=== PATIENT | male | born 1975 | race African-American/Black ===

== ENCOUNTER 2025-01-06 14:59 | Outpatient (AMB) | payer BC, SELFPAY ==
--- NOTE | 2025-01-06 15:06 | HO.NEPHOV_ITS ---
Vital Signs 01/06/25 15:10 Height 5 ft 10 in Weight 475 lb BMI 68.1 BP 114/70 Blood Pressure Location Lt radial Position Sitting Pulse 117 H Pulse Source Pulse Oximeter Pulse Oximetry (%) 94 Oxygen Delivery Method Room Air Intake Visit Reasons: ENP: Dysuria Accounting Professor Required: No Accompanied by: Friend Allergies codeine Allergy (Verified 01/06/25 15:10) Itching guaifenesin Allergy (Verified 01/06/25 15:10) Itching HPI Comments Details: I had the delight of seeing Mr. Yoon who is 49 years of age with a BMI of 68, in consultation for proteinuria. He is not a diabetic and does not have any hypertension. He had leg wound which is healing. He recently had been noticing cloudy urine with edema and weight gain. He denies epistaxis, recurrent sore throat, photosensitivity, new skin rashes, joint swellings, hearing deficits, coronary artery disease, congestive heart failure, CVA. He takes nonsteroidal anti-inflammatories as needed basis. He does not have any new bone or back pain. Recently he presented to PCP with dark and cloudy urine, he was thought to have microscopic hematuria and was diagnosed with proteinuria. His recent serum albumin has been 2.3. Nephrology has been consulted to assist in his clinical care during his current hospital stay. [facility] Medical History (Updated 01/06/25 @ 15:49 by Gerard Morris MD) [place] disease Adult lactase deficiency Bilateral carpal tunnel syndrome Depression with anxiety Allergic rhinitis Decreased testosterone level Proteinuria Eczema Vitamin D deficiency Complication of stomach banding GERD (gastroesophageal reflux disease) Seasonal allergic rhinitis due to pollen Seasonal allergic conjunctivitis Multifocal pneumonia Chronic cough Gynecomastia Morbid obesity with BMI of 60.0-69.9, adult Vitamin B12 deficiency Essential (primary) hypertension Hyperlipidemia Surgical History (Updated 01/06/25 @ 15:08 by Vidya Cody MA) History of endoscopy Hx of laparoscopic gastric banding Family History Maternal Aunt Diabetes Social History (Updated 01/06/25 @ 15:07 by Vidya Cody MA) Alcohol intake: former Patient Tobacco Use Status: Never used Tobacco Review of Systems Const All systems reviewed & are unremarkable except as noted in HPI and below Physical Exam Vital Signs: Last Vital Signs Pulse 117 H 01/06/25 15:10 BP 114/70 01/06/25 15:10 Pulse Ox 94 01/06/25 15:10 Oxygen Delivery Method Room Air 01/06/25 15:10 BMI result Body Mass Index 68.1 Const General: comfortable and no acute distress Orientation/consciousness: patient oriented x3 HEENT Head: Yes normocephalic Mouth: Normal oral and palatal mucosa present Eyes EOM: EOMs intact bilaterally Neck Neck: Yes supple Resp Auscultation: clear to auscultation bilaterally Cardio Jugular venous distension: no JVD Rate: regular rate GI Palpation (GI): Soft to palpation Auscultation: normal bowel sounds General: Yes no CVA tenderness Back/Spine/Pelvis Back: no CVA tenderness Skin General skin exam: no rashes or lesions noted Neuro General: patient oriented x3 and moves all extremities Extrem General: Yes edema Results Reviewed Nephrology Results: Sodium Pending 01/06/25 Potassium Pending 01/06/25 Chloride Pending 01/06/25 Carbon Dioxide Pending 01/06/25 BUN Pending 01/06/25 Creatinine Pending 01/06/25 Calcium Pending 01/06/25 Urine Creatinine Pending 01/06/25 Protein/Creatinin Ratio Pending 01/06/25 Assessment & Plan Assessment & Plan (1) Proteinuria: Code(s): R80.9 - Proteinuria, unspecified Category: Medical Qualifiers: Proteinuria type: other Qualified Code(s): R80.8 - Other proteinuria (2) Hypoalbuminemia: Code(s): E88.09 - Other disorders of plasma-protein metabolism, not elsewhere classified Category: Medical Plan Mr. Yoon has microscopic hematuria and significant proteinuria. He recently had been having weight gain and edema. His serum creatinine is normal. He is hypoalbuminemic. Differential diagnosis are quite broad including postinfectious GN, IgA nephropathy, FSGS. He is hypervolemic. I started him on Lasix 40 mg daily and ordered blood work, urine studies including 24 hour urine for protein. He may need a renal biopsy. His renal functions are normal. His blood pressure is at goal. I encouraged him to minimize or avoid nonsteroidal anti-inflammatories and cut back sodium in the diet. He should lose more weight. Further management is pending evolving data. Answered all questions. Orders: Orders Protein, 24 Hr Urine Group Today R80.9 - Proteinuria, unspecified Electrolytes Today R80.9 - Proteinuria, unspecified Creatinine Today R80.9 - Proteinuria, unspecified Hepatitis B Core Antibody Today R80.9 - Proteinuria, unspecified Hepatitis B Surface Antigen Today R80.9 - Proteinuria, unspecified Anti DNA DS Antibody Today R80.9 - Proteinuria, unspecified Myeloperoxidase Antibody Today R80.9 - Proteinuria, unspecified Anti Glomerular Basement Memb Today R80.9 - Proteinuria, unspecified Complement C3 Today R80.9 - Proteinuria, unspecified Immunofixation Pnl, Serum Today R80.9 - Proteinuria, unspecified Phospholipase A2 Receptor Pnl Today R80.9 - Proteinuria, unspecified Alanine Aminotransferase Today E88.09 - Other disorders of plasma-protein metabolism, not elsewhere classified, R80.9 - Proteinuria, unspecified Calcium Today R80.9 - Proteinuria, unspecified Blood Urea Nitrogen Today R80.9 - Proteinuria, unspecified Proteinase 3 PR3 Antibodies Today R80.9 - Proteinuria, unspecified Complement C4 Today R80.9 - Proteinuria, unspecified Aspartate Amino Transferase Today E88.09 - Other disorders of plasma-protein metabolism, not elsewhere classified, R80.9 - Proteinuria, unspecified Albumin Level Today E88.09 - Other disorders of plasma-protein metabolism, not elsewhere classified, R80.9 - Proteinuria, unspecified Immunofixation, Random Urine Today E88.09 - Other disorders of plasma-protein metabolism, not elsewhere classified, R80.9 - Proteinuria, unspecified Protein Creatinine Ratio, Ur Today E88.09 - Other disorders of plasma-protein metabolism, not elsewhere classified, R80.9 - Proteinuria, unspecified Medications: New furosemide (Lasix) 40 mg PO DAILY 14 tabs 0RF Coding Level of Care Code New Pt Level 4 (49395) Diagnoses Other proteinuria R80.8 Proteinuria type: other Hypoalbuminemia E88.09
[2025-01-06 15:10] VITALS: BP 114/70; PULSE 117; O2SAT 94; BMI 68.1
--- OUTSIDE RECORDS SUMMARY | 2025-01-06 18:15 | XMS_ITS | Encounter Summary ---
Author Organization [facility] Address [address] [place] [address] Care Team Providers Care Clean Rice Grader And Reel Tender Name Role Phone Carlos Jerez MD Primary Care Provider [phone] Reason for Visit * Reason Onset Date Comments Request For Order(s) 12/31/2024 [facility] Order # [id number] Encounter Details Date Type Department Care Team (Late st Contact Info) Description 12/31/2024 Telephone Internal Medicine - [place] [address] [place] [address] Cathy Coyne MA Request For Order(s) ([facility] Order # [id number]/) Social History Tobacco Use Types Packs/Day Years Used Date Smoking Tobacco: Never Smokeless Tobacco: Never Alcohol Use Standard Drinks/Week Comments Yes 0 (1 standard drink = 0.6 oz pur e alcohol) occasional socially Sex and Gender Information Value Date Recorded Sex Assigned at Not on file Legal Sex Male 8:39 PM EST Gender Identity Not on file Sexual Orientation Not on file documented as of this encounter Progress Notes * Cathy Coyne MA - 01/02/2025 7:04 AM EDT Scanned into chart and faxed to [facility] [phone] * Cathy Coyne MA - 12/31/2024 11:10 AM EDT [facility] Order # [id number] Please sign & documented in this encounter Plan of Treatment Upcoming Encounters Date Type Department Care Team (Late st Contact Info) Description 01/08/2025 9:30 AM EDT Clinical Support [facility] [address] [place] [phone] 01/22/2025 9:30 AM EDT Clinical Support [facility] [address] [place] [phone] 03/10/2025 11:30 AM EDT Office Visit [facility] Hematology Oncology [address] [place] [phone] Reese Christensen MD [address] [place] [address] 06/02/2025 8:15 AM EDT Office Visit Pulmonolgy - [place] [address] [phone] Ronald Schilling MD [address] [address] documented as of this encounter Goals Goal Patient Goal Type Associated Problems Recent Progress Patient-Stated? Author Decrease Wound Volume by X% by date (in notes) Care Plan Impaired Tissue On track( 025 11:14 AM EDT) No Camilla Perales, JERICA Patient and Caregiver Understand Wound Care Education Care Plan Impaired Tissue On track( 025 11:14 AM EDT) No Camilla Perales, jammer hooker volume breakdown reduced by X% by week 4 Care Plan Impaired Tissue No Camilla Perales, jammer hooker volume breakdown reduced by X% by week 8 Care Plan Impaired Tissue No Camilla Perales, jammer hooker volume breakdown reduced by X% by week 12 Care Plan Impaired Tissue No Camilla Perales, RN Quit using tobacco (cigarettes, smokeless, etc) Care Plan Education needed on impact of smoking on wound No Camilla Perales RN Reduce tobacco use (cigarettes, smokeless, etc) Care Plan Education needed on impact of smoking on wound No Camilla Perales RN Decrease Wound Volume by X% by date (in notes) Care Plan Education needed on impact of smoking on wound No Camilla Perales RN Patient and Caregiver Understand Wound Care Education Care Plan Education needed related to ulceration/compr omised skin integrity. No Camilla Perales RN documented as of this encounter Visit Diagnoses Not on filedocumented in this encounter Additional Health Concerns Active Problems Noted Date Diagnosed Date Impaired Tissue 12/19/2024 Education needed on impact of smoking on wound 0 12/19/2024 Education needed related to ulceration/compromised skin integrity. 12/19/2024 documented as of this encounter Care Teams Clean Rice Grader And Reel Tender Relationship Specialty Start Date End Date Carlos Jreez MD [address] [place] [address] PCP - General Internal Medicine 09/12/18 documented as of this encounter
--- OUTSIDE RECORDS SUMMARY | 2025-01-06 18:15 | XMS_ITS | Encounter Summary ---
Author Organization [facility] Address [address] [place] [address] Care Team Providers Care Bottle Selector Name Role Phone Carlos Jerez MD Primary Care Provider [phone] Reason for Visit * Reason Onset Date Comments Request For Order(s) 12/31/2024 [facility] Order # [id number] Encounter Details Date Type Department Care Team (Late st Contact Info) Description 12/31/2024 Telephone Internal Medicine - [place] [address] [facility] [address] [address] [address] [place] [address] Cathy Coyne MA Request For Order(s) ([facility] Order # [id number]/) Social History Tobacco Use Types Packs/Day Years [...] Notes * Cathy Coyne MA - 01/02/2025 7:15 AM EDT Scanned into chart and faxed to [facility] [phone] * Cathy Coyne MA - 12/31/2024 11:21 AM EDT [facility] Order # [id number] Please sign & documented in this encounter Plan of Treatment Upcoming Encounters Date Type Department Care Team (Late st Contact Info) Description 01/08/2025 9:30 AM EDT Clinical Support [facility] [address] [place] [phone] 01/22/2025 9:30 AM EDT Clinical Support [facility] [address] [place] [phone] 03/10/2025 11:30 AM EDT Office Visit [facility] Hematology Oncology [address] [place] [phone] Reese Christensen MD [address] [place] [phone] 06/02/2025 8:15 AM EDT Office Visit Pulmonolgy - [place] [address] [phone] Ronald Schilling MD [address] [address] documented as of this encounter Goals Goal Patient Goal Type Associated Problems Recent Progress Patient-Stated? Author Decrease Wound Volume by X% by date (in notes) Care Plan Impaired Tissue On track( 025 11:14 AM EDT) No Camilla Perales, JERICA Patient and Caregiver Understand Wound Care Education Care Plan Impaired Tissue On track( 025 11:14 AM EDT) No Camilla Perales, crystal inspector volume breakdown reduced by X% by week 4 Care Plan Impaired Tissue No Camilla Perales, crystal inspector volume breakdown reduced by X% by week 8 Care Plan Impaired Tissue No Camilla Perales, crystal inspector volume breakdown reduced by X% by week [...] documented as of this encounter Care Teams Bottle Selector Relationship Specialty Start Date End Date Carlos Jerez MD [address] [place] [address] PCP - General Internal Medicine 09/12/18 documented as of this encounter
--- OUTSIDE RECORDS SUMMARY | 2025-01-06 18:15 | XMS_ITS ---
Care Plan Created on: January 06, 2025 Cassie Yoon : 1975 Sex: Male Author Organization [address] [facility] Address [address] [place] [address] Phone Care Team Providers Care Home Health Care Provider Name Role Phone Carlos Jerez MD Primary Care Provider Active Problems Problem Noted Date Diagnosed Date Hyperlipidemia 07/09/2021 Primary hypertension 07/09/2021 Vitamin B12 deficiency 07/09/2021 Morbid obesity with BMI of 6 0.0-69.9, adult ([facility] V24, [facility] V28) 09/02/2020 Gynecomastia 08/23/2020 Chronic cough 01/26/2020 Multifocal pneumonia 01/26/2020 Seasonal allergic conjunctivitis 01/26/2020 Seasonal allergic rhinitis due to pollen 020 GERD (gastroesophageal reflux disease) 8 Complication of stomach banding 05/01/2018 Vitamin D deficiency 05/01/2018 Eczema 02/27/2017 Proteinuria 02/27/2017 Decreased testosterone level 11/30/2016 Allergic rhinitis 04/17/2016 Depression with anxiety 04/17/2016 Bilateral carpal tunnel syndrome 04/13/2015 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 [place] disease 09/02/2013 Additional Health Concerns Active Problems Noted Date Diagnosed Date Impaired Tissue 12/19/2024 Education needed on impact of smoking on wound 0 12/19/2024 Education needed related to ulceration/compromised skin integrity. 12/19/2024 Goals Goal Patient Goal Type Associated Problems Recent Progress Patient-Stated? Author Decrease Wound Volume by X% by date (in notes) Care Plan Impaired Tissue On track( 025 11:14 AM EDT) Camilla Sullivan RN Patient and Caregiver Understand Wound Care Education Care Plan Impaired Tissue On track( 025 11:14 AM EDT) Camilla Sullivan RN Wound volume breakdown reduced by X% by week 4 Care Plan Impaired Tissue No Camilla Perales RN Wound volume breakdown reduced by X% by week 8 Care Plan Impaired Tissue No Camilla Perales RN Wound volume breakdown reduced by X% by week 12 Care Plan Impaired Tissue No Camilla Perales RN Quit using tobacco (cigarettes, smokeless, etc) [...] omised skin integrity. No Camilla Perales RN Interventions Care Plan Interventions Intervention Entry Date Outcome Provide caregiver with wound care procedure information 12/19/2024 Educate caregiver on proper wound care procedures 12/19/2024 Give provider list of wound care supplies 12/19/2024 Refill wound care supplies 12/19/2024 Send Wound Care Supplies 12/19/2024 Give provider list of wound care supplies 12/19/2024 Refill wound care supplies 12/19/2024 Send Wound Care Supplies 12/19/2024 Provide caregiver with wound care procedure information 12/19/2024 Educate caregiver on proper wound care procedures 12/19/2024 Document patient eligibility for HBO 12/19/2024 Assess patient for HBO treatment 12/19/2024 Record wound depth 12/19/2024 Record total wound area 12/19/2024 Measure wound progress 12/19/2024 Create an action plan identifying patient strengths and supports 12/19/2024 Establish quit date with patient 12/19/2024 Discuss prior cessation attempts 12/19/2024 Discuss preferred method of cessation and plan 12/19/2024 Discuss barriers to smoking cessation 12/19/2024 Discuss smoking status with patient 12/19/2024 Create an action plan identifying patient strengths and supports 12/19/2024 Establish quit date with patient 12/19/2024 Discuss prior cessation attempts 12/19/2024 Discuss preferred method of cessation and plan 12/19/2024 Discuss barriers to smoking cessation 12/19/2024 Discuss smoking status with patient 12/19/2024 Provide caregiver with wound care procedure information 12/19/2024 Educate caregiver on proper wound care procedures 12/19/2024 Document patient eligibility for HBO 12/19/2024 Assess patient for HBO treatment 12/19/2024 Record wound depth 12/19/2024 Record total wound area 12/19/2024 Measure wound progress 12/19/2024 Provide caregiver with wound care procedure information 12/19/2024 Educate caregiver on proper wound care procedures 12/19/2024 Document patient eligibility for HBO 12/19/2024 Assess patient for HBO treatment 12/19/2024 Record wound depth 12/19/2024 Record total wound area 12/19/2024 Measure wound progress 12/19/2024 Provide caregiver with wound care procedure information 12/19/2024 Educate caregiver on proper wound care procedures 12/19/2024 Document patient eligibility for HBO 12/19/2024 Assess patient for HBO treatment 12/19/2024 Record wound depth 12/19/2024 Record total wound area 12/19/2024 Measure wound progress 12/19/2024 Provide caregiver with wound care procedure information 12/19/2024 Educate caregiver on proper wound care procedures 12/19/2024 Give provider list of wound care supplies 12/19/2024 Refill wound care supplies 12/19/2024 Send Wound Care Supplies 12/19/2024 Give provider list of wound care supplies 12/19/2024 Refill wound care supplies 12/19/2024 Send Wound Care Supplies 12/19/2024 Provide caregiver with wound care procedure information 12/19/2024 Educate caregiver on proper wound care procedures 12/19/2024 Document patient eligibility for HBO 12/19/2024 Assess patient for HBO treatment 12/19/2024 Record wound depth 12/19/2024 Record total wound area 12/19/2024 Measure wound progress 12/19/2024 Related Goals and Interventions Goal Associated Intervent ions Decrease Wound Volume by X% by date (in notes) Give provider list of wound care supplie s; Refill wound care supplies; Send Wound Care Supplies; Provide caregiver with wound care procedure information; Educate caregiver on proper wound care procedures; Document patient eligibility for HBO; Assess patient for HBO treatment; Record wound depth; Record total wound area; Measure wound progress Patient and Caregiver Unders tand Wound Care Education Provide caregiver with wound care proced ure information; Educate caregiver on proper wound care procedures; Give provider list of wound care supplies; Refill wound care supplies; Send Wound Care Supplies Wound volume breakdown reduc ed by X% by week 4 Provide caregiver with wound care proced ure information; Educate caregiver on proper wound care procedures; Document patient eligibility for HBO; Assess patient for HBO treatment; Record wound depth; Record total wound area; Measure wound progress Wound volume breakdown reduc ed by X% by week 8 Provide caregiver with wound care proced ure information; Educate caregiver on proper wound care procedures; Document patient eligibility for HBO; Assess patient for HBO treatment; Record wound depth; Record total wound area; Measure wound progress Wound volume breakdown reduc ed by X% by week 12 Provide caregiver with wound care proced ure information; Educate caregiver on proper wound care procedures; Document patient eligibility for HBO; Assess patient for HBO treatment; Record wound depth; Record total wound area; Measure wound progress Quit using tobacco (cigarett es, smokeless, etc) Create an action plan identifying patien t strengths and supports; Establish quit date with patient; Discuss prior cessation attempts; Discuss preferred method of cessation and plan; Discuss barriers to smoking cessation; Discuss smoking status with patient Reduce tobacco use (cigarett es, smokeless, etc) Create an action plan identifying patien t strengths and supports; Establish quit date with patient; Discuss prior cessation attempts; Discuss preferred method of cessation and plan; Discuss barriers to smoking cessation; Discuss smoking status with patient Decrease Wound Volume by X% by date (in notes) Give provider list of wound care supplie s; Refill wound care supplies; Send Wound Care Supplies; Provide caregiver with wound care procedure information; Educate caregiver on proper wound care procedures; Document patient eligibility for HBO; Assess patient for HBO treatment; Record wound depth; Record total wound area; Measure wound progress Patient and Caregiver Unders tand Wound Care Education Provide caregiver with wound care proced ure information; Educate caregiver on proper wound care procedures; Give provider list of wound care supplies; Refill wound care supplies; Send Wound Care Supplies
--- OUTSIDE RECORDS SUMMARY | 2025-01-06 18:15 | XMS_ITS | Encounter Summary ---
Author Organization [employer] Address [address] [place] [address] Care Team Providers Care Software Developer Name Role Phone Carlos Jerez MD Primary Care Provider [phone] Reason for Visit * Reason Comments Wound Care Encounter Details Date Type Department Care Team (Latest Contact Info) Description 01/01/2025 10:30 AM EDT Office Visit [facility] [address] [place] [id number] Ever Torrez PA [address] [place] [address] Venous insufficiency of left lower extremity (Primary Dx); Non-pressure chronic ulcer of left lower leg with fat layer exposed (CMS/HCC V24, CMS/HCC V28); Non-pressure chronic ulcer of left thigh with fat layer exposed (CMS/HCC V24, CMS/HCC V28); Pressure injury of left buttock, stage 3 (CMS/HCC V24, CMS/HCC V28); Pressure injury of right buttock, stage 3 (CMS/HCC V24, CMS/HCC V28) Social History Tobacco Use Types Packs/Day Years [...] on file documented as of this encounter Last Filed Vital Signs Vital Sign Reading Time Taken Comments Blood Pressure 143/94 01/01/2025 11:20 AM EDT Pulse 96 01/01/2025 11:20 AM EDT Temperature 36.5 ??C (97.7 ??F) 01/01/2025 11:20 AM E DT Respiratory Rate 20 01/01/2025 11:20 AM EDT Oxygen Saturation 100% 01/01/2025 11:20 AM EDT Inhaled Oxygen Concentration - - Weight - - Height - - Body Mass Index - - documented in this encounter Progress Notes * Camilla Perales RN - 01/01/2025 10:30 AM EDT PROVIDER ORDERS Go to ER if you are presenting with fever, chills, increased redness, pain, swelling, warmth aroundwound area and/or foul smelling odor. If you have any questions or concerns, please contact the [facility] at . It was noted today during your visit that your blood pressure is elevated. Close follow-up with PCPis recommended for possible evaluation of starting and or changing blood pressure medication. VisitVitals BP (!) 148/99 Comment: pt asymptomatic Pulse 108 Temp 36.5 ??C (97.7 ??F) (Temporal) Resp 20 SpO2 100% Smoking Status Never Follow up(s)/ Referrals: Lymphedema Clinic: please call to follow up on your referral Vascular: [facility] 01/14/25 8 am Long-Term: Home care: [facility] Additional Orders: Increase protein in your diet to help promote wound healing Lidocaine Orders: Apply Lidocaine 4% Topical Solution prior to debridements at Wound Care appointments Edema Control: (If your compression wrap(s) feel to tight, please elevate your leg(s) about heart level. If your wrap(s) are becoming painful and/or you loose sensation of toes/ are having toe discoloration (a change from your baseline), please remove / unwrap compression and notify [facility] at . ) Coban 2 wrap to left lower extremity, Elevate legs above heart level as much as possible, Avoid standing for extended periods of time. Wear your own compression on your right leg Offloading: Gel wheelchair cushion prescription being sent to [facility] Negative Pressure Wound Therapy: (If wound vac is off/non functioning for more than 2 hours, please remove vac dressing, apply a wetto dry dressing and notify your home care agency) N/A Cellular/Tissue Based Products: N/A Bathing / Showering / Hygiene: May shower with protection but DO NOT get wound dressing(s) wet. Protect dressing(s) with water repellant cover ( for example- large plastic bag or cast bag) and then may take shower. Non-wound Condition/ Other Skin Care: Moisturize skin daily, avoiding wound area, Apply Ammonium Lactate 12% (Lac- hydrin) to skin as directed Wound Location(s): Wound #1 (Left anterior lower leg): Cleanser: Cleanse with Normal Saline, Cleanse with Vashe (if you can get Vashe, you can clean with the vashe) Periwound: Apply Zinc Oxide to howard wound Topical: N/A Primary dressing: Hydrofiber with silver (Aquacel AG)- cut to fit to wound bed Secondary dressinx4 woven gauze (non-sterile), Exudry Secure with: Kerlix wrap Compression Therapy: Coban 2 wrap to left lower extremity Dressing Change Frequency: Three times each week Wound #2 (Left medial upper leg): Cleanser: Cleanse with Normal Saline, Cleanse with Vashe (if you can get Vashe, you can clean with the vashe) Periwound: Apply Zinc Oxide to howard wound Topical: N/A Primary dressing: Hydrofiber with silver (Aquacel AG)- cut to fit to wound bed Secondary dressinx4 woven gauze (non-sterile), Exudry Secure with: Kerlix wrap- if needed, we secured with just an bladimir at the wound clinic Compression Therapy: 4 Bladimir Wrap Dressing Change Frequency: Three times each week Wound #3 (Left buttocks): Cleanser: Cleanse with Normal Saline Periwound: Apply Zinc Oxide to howard wound Topical: N/A Primary dressing: Hydrofiber with silver (Aquacel AG)- cut to fit to wound bed Secondary dressinx4 woven gauze (non-sterile) Secure with: 4 hypafix tape Compression Therapy: N/A Dressing Change Frequency: Three times each week Wound #4 (Right Buttocks): Cleanser: Cleanse with Normal Saline Periwound: Apply Zinc Oxide to howard wound Topical: N/A Primary dressing: Hydrofiber with silver (Aquacel AG)- cut to fit to wound bed Secondary dressinx4 woven gauze (non-sterile) Secure with: 4 hypafix tape Compression Therapy: N/A Dressing Change Frequency: Three times each week * HUSSEIN Dubois - 01/01/2025 10:30 AM EDTAssociated Order(s): Wound Care Procedure Other (comment) (Lymphedema ) Left;Anterior;Lower Leg; Debridement Other (comment) (Lymphedema ) Left;Anterior;Lower Leg; Debridement Other (comment) (Lymphedema ) Left;Upper;Medial Leg; Wound Care Procedure Pressure Injury Right Buttocks; Wound Care Procedure Pressure Injury Left Buttocks Post-Procedure Diagnose(s): Non-pressure chronic ulcer of left lower leg with fat layer exposed (CMS/HCC V24, CMS/HCC V28); Venous insufficiency of left lower extremity; 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 [facility] at [address] [address] Office Visit Visit Date: 01/01/2025 Patient Name: Cassie Yoon Date of : 1975 PCP: Carlos Jerez MD HPI: 41-year-old male with history of hyperlipidemia, hypertension, morbid obesity, eczema, proteinuria, lymphedema presents for reevaluation of left lower leg ulcers. He has VNA and since last week he has tolerated Coban 2 for compression with alginate on the wounds. He reports that he has to wounds over not evaluated last visit on his buttocks. These occurred while he was hospitalized recently.Otherwise he reports wounds seem to be improving and he is feeling well. 01/01/2025 Cassie Yoon is a 49 y.o. male who presents to the to the wound care center for follow up lower leg wounds bilateral buttocks wounds. Patient using topical silver alginate at this time with Coban compression. Patient has stage III pressure ulcers to the buttocks. Denies fever chills. Assessment and Plan: Venous insufficiency of left lower extremity (Primary) - Wound Care Procedure Other (comment) (Lymphedema ) Left;Anterior;Lower Leg - Debridement Other (comment) (Lymphedema ) Left;Anterior;Lower Leg - Debridement Other (comment) (Lymphedema ) Left;Upper;Medial Leg Non-pressure chronic ulcer of left lower leg with fat layer exposed (CMS/HCC V24, CMS/HCC V28) - Wound Care Procedure Other (comment) (Lymphedema ) Left;Anterior;Lower Leg - Debridement Other (comment) (Lymphedema ) Left;Anterior;Lower Leg Non-pressure chronic ulcer of left thigh with fat layer exposed (CMS/HCC V24, CMS/HCC V28) - Debridement Other (comment) (Lymphedema ) Left;Upper;Medial Leg Pressure injury of left buttock, stage 3 (CMS/HCC V24, CMS/HCC V28) - Wound Care Procedure Pressure Injury Right Buttocks Pressure injury of right buttock, stage 3 (CMS/HCC V24, CMS/HCC V28) - Wound Care Procedure Pressure Injury Left Buttocks Patient to follow-up in 1 week. Will continue with Coban compression. Silver alginate to the left lower leg wounds and pressure ulcers to the buttocks. Patient's blood pressure noted to be elevated advised to follow-up with PCP. No obvious signs of wound infection at this time. Left leg wounds aggressively debrided with a fair amount of bioburden noted. Pressure ulcers of the buttocks had hypergranulation tissue which were debrided/chemical cautery with silver nitrate. All questions were answered to his satisfaction. He was counseled regarding my impressions, instructions for management, and the importance of compliance with treatment. Follow up in about 1 week (around 01/08/2025), or Dr. Jasso, for Coban 2, multiple wounds. >>>>>>>>>>>>>>>>>>>>>>>>>>>>>>>>>>>>>>>>>>>>>>>>>>> Vital Signs: Visit Vitals BP (!) 148/99 Comment: pt asymptomatic Pulse 108 Temp 36.5 ??C (97.7 ??F) (Temporal) Resp 20 Review of Systems: Review of Systems Constitutional: Negative for chills and fever. Skin: Positive for wound. All other systems reviewed and are negative. PHYSICAL EXAM Physical Exam Vitals and nursing note reviewed. Exam conducted with a internet designer present. Constitutional: Appearance: Normal appearance. HENT: Head: Normocephalic. Eyes: Extraocular Movements: Extraocular movements intact. Pulmonary: Effort: Pulmonary effort is normal. Musculoskeletal: General: Normal range of motion. Skin: General: Skin is warm and dry. Comments: See wound details in assessment and procedure note. Left lower leg wound is noted close to circumferential. Fair amount of bioburden is noted within the wound. Wound edges are intact no undermining in the wound edges. Periwound is intact with no erythema inflammation. Proximal wound to the inner left thigh is noted. Positive granulation tissue noted some biofilm sloth noted. Wound appears improving. Right buttocks pressure ulcers noted. Fair amount of hypergranulation tissue is noted. Red base is noted. No foul odor no undermining of the wound edges. Left side of buttocks wound similar hypergranulation tissue amari red center. No foul odor noted. Neurological: General: No focal deficit present. Mental Status: He is alert and oriented to person, place, and time. Psychiatric: Mood and Affect: Mood normal. WOUND ASSESSMENT If photograph of wound not visible on this note, please check under Media tab. Wound Other (comment) Leg Left;Anterior;Lower (Active) No Date First Assessed or Time First Assessed found. Primary Wound Type: (c) Other (comment) Wound Approximate Age at First Assessment (Weeks): 5 weeks Hand Hygiene Completed: Yes Location: Leg WoundLocation Orientation: Left;Anterior;Lower Assessments 12/19/2024 8:40 AM 01/01/2025 10:53 AM Wound Image Wound Bed Tissue Assessment Ozora;Sloughing Granulation;Sloughing Howard-Wound Assessment Intact Scarred Wound Length (cm) 16 cm 13 cm Wound Width (cm) 26.6 cm 26.2 cm Wound Surface Area (cm^2) 425.6 cm^2 340.6 cm^2 Wound Depth (cm) 0.1 cm 0.1 cm Wound Volume (cm^3) 42.56 cm^3 34.06 cm^3 Wound Healing % -- 20 Drainage Description Serous Serosanguineous Drainage Amount Copious Copious Treatments Cleansed Cleansed;Other (Comment);Moisturizing cream Dressing -- 2 Layer compression wrap Dressing Status -- Removed Wound Bed Granulation (%) 50 % 90 % Wound Bed Epithelialization (%) 0 % -- Wound Bed Slough (%) 50 % 10 % Wound Bed Eschar (%) 0 % 0 % Tunneling 0 cm 0 cm Undermining 0 cm 0 cm Edges Well-defined edges;Attached edges Attached edges;Well-defined edges Non-staged Wound Description Full thickness Full thickness Active Orders Date Order Priority Status Authorizing Provider 01/01/25 1136 Debridement Other (comment) (Lymphedema ) Left;Anterior;Lower Leg Routine Active HUSSEIN Dubois 01/01/25 1112 Wound Care Procedure Other (comment) (Lymphedema ) Left;Anterior;Lower Leg Routine Active Alex Ordaz MD Inactive Orders Date Order Priority Status Authorizing Provider 12/25/24 1226 Debridement Other (comment) (Lymphedema ) Left;Anterior;Lower Leg Routine Completed Alex Ordaz MD 12/25/24 1113 Wound Care Procedure Other (comment) (Lymphedema ) Left;Anterior;Lower Leg Routine Completed Alex Ordaz MD 12/19/24 0925 Debridement Other (comment) (Lymphedema ) Left;Anterior;Lower Leg Routine Completed HUSSEIN Dubois 12/19/24 0922 Wound Care Procedure Other (comment) (Lymphedema ) Left;Anterior;Lower Leg Routine Completed HUSSEIN Dubois Wound Other (comment) Leg Left;Upper;Medial (Active) No Date First Assessed or Time First Assessed found. Primary Wound Type: (c) Other (comment) Wound Approximate Age at First Assessment (Weeks): 5 weeks Hand Hygiene Completed: Yes Location: Leg WoundLocation Orientation: Left;Upper;Medial Assessments 12/19/2024 8:44 AM 01/01/2025 10:54 AM Wound Image Wound Bed Tissue Assessment Ozora;Sloughing Granulation;Sloughing Howard-Wound Assessment Intact Scarred Wound Length (cm) 13 cm 11.5 cm Wound Width (cm) 6.8 cm 7 cm Wound Surface Area (cm^2) 88.4 cm^2 80.5 cm^2 Wound Depth (cm) 0.1 cm 0.1 cm Wound Volume (cm^3) 8.84 cm^3 8.05 cm^3 Wound Healing % -- 9 Drainage Description Serous Serous Drainage Amount Large Large Treatments Cleansed Cleansed;Other (Comment) Dressing Status -- Removed Wound Bed Granulation (%) 50 % 80 % Wound Bed Epithelialization (%) 0 % -- Wound Bed Slough (%) 50 % 20 % Wound Bed Eschar (%) 0 % 0 % Tunneling 0 cm 0 cm Undermining 0 cm 0 cm Edges Well-defined edges;Attached edges Well-defined edges;Attached edges Non-staged Wound Description Full thickness Full thickness Active Orders Date Order Priority Status Authorizing Provider 01/01/25 1137 Debridement Other (comment) (Lymphedema ) Left;Upper;Medial Leg Routine Active HUSSEIN Dubois Inactive Orders Date Order Priority Status Authorizing Provider 12/19/24 0926 Debridement Other (comment) (Lymphedema ) Left;Upper;Medial Leg Routine Completed HUSSEIN Dubois Wound Pressure Injury 12/25/24 Buttocks Right (Active) Date First Assessed/Time First Assessed: 12/25/24 1039 Primary Wound Type: Pressure Injury Wound Approximate Age at First Assessment (Weeks): 6 weeks Hand Hygiene Completed: Yes Location: Buttocks Wound Location Orientation: Right Assessments 12/25/2024 10:39 AM 01/01/2025 10:41 AM Wound Image Wound Bed Tissue Assessment Granulation;Sloughing Granulation;Sloughing Howard-Wound Assessment Dry;Scarred Scarred;Intact Wound Length (cm) 1.1 cm 1.2 cm Wound Width (cm) 5.8 cm 6 cm Wound Surface Area (cm^2) 6.38 cm^2 7.2 cm^2 Wound Depth (cm) 0.5 cm 0.4 cm Wound Volume (cm^3) 3.19 cm^3 2.88 cm^3 Wound Healing % -- 10 Drainage Description Unable to assess Unable to assess Treatments Cleansed;Other (Comment) Cleansed;Other (Comment) Dressing Open to air Open to air Wound Bed Granulation (%) 60 % 80 % Wound Bed Slough (%) 40 % 20 % Wound Bed Eschar (%) 0 % 0 % Tunneling 0 cm 0 cm Undermining 0 cm 0 cm Edges Attached edges;Well-defined edges Well-defined edges;Attached edges Pressure Injury Stage Stage 3 Stage 3 Active Orders Date Order Priority Status Authorizing Provider 01/01/25 1138 Wound Care Procedure Pressure Injury Right Buttocks Routine Active HUSSEIN Dubois Wound Pressure Injury 12/25/24 Buttocks Left (Active) Date First Assessed/Time First Assessed: 12/25/24 1042 Primary Wound Type: Pressure Injury Wound Approximate Age at First Assessment (Weeks): 6 weeks Hand Hygiene Completed: Yes Location: Buttocks Wound Location Orientation: Left Assessments 12/25/2024 10:42 AM 01/01/2025 10:40 AM Wound Image Wound Bed Tissue Assessment Granulation;Sloughing Granulation;Sloughing Howard-Wound Assessment Dry;Intact Scarred;Intact Wound Length (cm) 0.5 cm 0.3 cm Wound Width (cm) 2.5 cm 3.5 cm Wound Surface Area (cm^2) 1.25 cm^2 1.05 cm^2 Wound Depth (cm) 0.2 cm 0.2 cm Wound Volume (cm^3) 0.25 cm^3 0.21 cm^3 Wound Healing % -- 16 Drainage Description Unable to assess Unable to assess Treatments Cleansed;Other (Comment) Cleansed;Other (Comment) Dressing Open to air Open to air Wound Bed Granulation (%) 60 % 80 % Wound Bed Slough (%) 40 % 20 % Wound Bed Eschar (%) 0 % 0 % Tunneling 0 cm 0 cm Undermining 0 cm 0 cm Edges Well-defined edges;Attached edges Attached edges;Well-defined edges Pressure Injury Stage Stage 3 Stage 3 Active Orders Date Order Priority Status Authorizing Provider 01/01/25 1139 Wound Care Procedure Pressure Injury Left Buttocks Routine Active HUSSEIN Dubois Pertinent Labs: Albumin Date Value Ref Range Status 12/24/2024 2.4 (L) 3.2 - 5.0 g/dL Final WBC Date Value Ref Range Status 12/24/2024 8.3 4.8 - 10.8 K/mcL Final WBC, Urine Date Value Ref Range Status 12/24/2024 20.6 (H) 0 - 4 /HPF Final Hemoglobin A1C Date Value Ref Range Status 07/08/2021 6.2 <=6.5 % Final Procedure Note: Wound Care Procedure Other (comment) (Lymphedema ) Left;Anterior;Lower Leg Date/Time: 01/01/2025 11:12 AM Performed by: Tianna Corcoran RN Authorized by: Alex Ordaz MD Associated wounds: Wound Other (comment) Leg Left;Anterior;Lower Consent: Consent obtained: Verbal Consent given by: Patient Risks, benefits, and alternatives were discussed: yes Risks discussed: Infection and pain Alternatives discussed: Delayed treatment [place] protocol: Procedure explained and questions answered to patient or proxy's satisfaction: yes Relevant documents present and verified: yes Patient identity confirmed: Verbally with patient Sedation: Sedation type: None Anesthesia: Anesthesia method: None Procedure details: Indications: open wounds Wound location: Leg Leg location: L lower leg Wound age (days): >14 Dressing: Wrapped with: Coban 2 left leg. Post-procedure details: Procedure completion: Tolerated Debridement Other (comment) (Lymphedema ) Left;Anterior;Lower Leg Performed by: HUSSEIN Dubois Authorized by: HUSSEIN Dubois Associated wounds: Wound Other (comment) Leg Left;Anterior;Lower Consent: Consent obtained: Verbal Consent given by: Patient Risks discussed: Yes Time out: Immediately prior to the procedure a time out was called Debridement Details: Performed by: HUSSEIN Type: surgical Level: subcutaneous tissue Pain control: Lidocaine 4% Severity of Tissue Pre Debridement: Fat layer exposed Severity of Tissue Post Debridement: Fat layer exposed Length (cm): 13 Width (cm): 26.2 Depth (cm): 0.1 Area (cm^2): 340.6 Length (cm): 13 Width (cm): 26.2 Depth (cm): 0.1 Percent Debrided (%): 65 Surface Area (cm^2): 340.6 Area Debrided (cm^2): 221.39 Volume (cm^3): 34.06 Tissue and other material debrided: dermis, epidermis and subcutaneous tissue Devitalized tissue debrided: biofilm and slough Instrument: Curette Amount of bleeding: none Hemostasis obtained with: Not applicable Procedural pain: 0 Post-procedural pain: 0 Response to treatment: Procedure was tolerated well Debridement Other (comment) (Lymphedema ) Left;Upper;Medial Leg Performed by: HUSSEIN Dubois Authorized by: HUSSEIN Dubois Associated wounds: Wound Other (comment) Leg Left;Upper;Medial Consent: Consent obtained: Verbal Consent given by: Patient Risks discussed: Yes Time out: Immediately prior to the procedure a time out was called Debridement Details: Performed by: HUSSEIN Type: surgical Level: subcutaneous tissue Pain control: Lidocaine 4% Severity of Tissue Pre Debridement: Fat layer exposed Severity of Tissue Post Debridement: Fat layer exposed Length (cm): 11.5 Width (cm): 7 Depth (cm): 0.1 Area (cm^2): 80.5 Length (cm): 11.5 Width (cm): 7 Depth (cm): 0.1 Percent Debrided (%): 50 Surface Area (cm^2): 80.5 Area Debrided (cm^2): 40.25 Volume (cm^3): 8.05 Tissue and other material debrided: dermis, epidermis and subcutaneous tissue Devitalized tissue debrided: biofilm and slough Instrument: Curette Amount of bleeding: none Hemostasis obtained with: Not applicable Procedural pain: 0 Post-procedural pain: 0 Response to treatment: Procedure was tolerated well Wound Care Procedure Pressure Injury Right Buttocks Date/Time: 01/01/2025 11:38 AM Performed by: HUSSEIN Dubois Authorized by: HUSSEIN Dubios Associated wounds: Wound Pressure Injury 12/25/24 Buttocks Right Consent: Consent obtained: Verbal Consent given by: Patient Risks, benefits, and alternatives were discussed: yes Risks discussed: Bleeding Alternatives discussed: No treatment [place] protocol: Procedure explained and questions answered to patient or proxy's satisfaction: yes Relevant documents present and verified: yes Patient identity confirmed: Verbally with patient Sedation: Sedation type: None Anesthesia: Anesthesia method: Topical application Post-procedure details: Procedure completion: Tolerated with difficulty Comments: Right buttocks wound is noted. Patient has a fair amount of hypergranulation tissue. Patient also anesthetized with topical lidocaine spray. Silver nitrate used for chemical cautery/debridement. Wound Care Procedure Pressure Injury Left Buttocks Date/Time: 01/01/2025 11:39 AM Performed by: HUSSEIN Dubois Authorized by: HUSSEIN Dubois Associated wounds: Wound Pressure Injury 12/25/24 Buttocks Left Consent: Consent obtained: Verbal Consent given by: Patient Risks, benefits, and alternatives were discussed: yes Risks discussed: Bleeding Alternatives discussed: No treatment [place] protocol: Procedure explained and questions answered to patient or proxy's satisfaction: yes Relevant documents present and verified: yes Patient identity confirmed: Verbally with patient Sedation: Sedation type: None Anesthesia: Anesthesia method: Topical application Post-procedure details: Procedure completion: Tolerated with difficulty Comments: Left buttocks wound is noted. Patient has a fair amount of hypergranulation tissue. Patient also anesthetized with topical lidocaine spray. Silver nitrate used for chemical cautery/debridement. PROVIDER ORDERS Patient Instructions PROVIDER ORDERS Go to ER if you are presenting with fever, chills, increased redness, pain, swelling, warmth aroundwound area and/or foul smelling odor. If you have any questions or concerns, please contact the [facility] at . It was noted today during your visit that your blood pressure is elevated. Close follow-up with PCPis recommended for possible evaluation of starting and or changing blood pressure medication. VisitVitals BP (!) 148/99 Comment: pt asymptomatic Pulse 108 Temp 36.5 ??C (97.7 ??F) (Temporal) Resp 20 SpO2 100% Smoking Status Never Follow up(s)/ Referrals: Lymphedema Clinic: please call to follow up on your referral Vascular: [facility] 01/14/25 8 am Long-Term: Home care: [facility] Additional Orders: Increase protein in your diet to help promote wound healing Lidocaine Orders: Apply Lidocaine 4% Topical Solution prior to debridements at Wound Care appointments Edema Control: (If your compression wrap(s) feel to tight, please elevate your leg(s) about heart level. If your wrap(s) are becoming painful and/or you loose sensation of toes/ are having toe discoloration (a change from your baseline), please remove / unwrap compression and notify [facility] at . ) Coban 2 wrap to left lower extremity, Elevate legs above heart level as much as possible, Avoid standing for extended periods of time. Wear your own compression on your right leg Offloading: Gel wheelchair cushion prescription being sent to [facility] Negative Pressure Wound Therapy: (If wound vac is off/non functioning for more than 2 hours, please remove vac dressing, apply a wetto dry dressing and notify your home care agency) N/A Cellular/Tissue Based Products: N/A Bathing / Showering / Hygiene: May shower with protection but DO NOT get wound dressing(s) wet. Protect dressing(s) with water repellant cover ( for example- large plastic bag or cast bag) and then may take shower. Non-wound Condition/ Other Skin Care: Moisturize skin daily, avoiding wound area, Apply Ammonium Lactate 12% (Lac- hydrin) to skin as directed Wound Location(s): Wound #1 (Left anterior lower leg): Cleanser: Cleanse with Normal Saline, Cleanse with Vashe (if you can get Vashe, you can clean with the vashe) Periwound: Apply Zinc Oxide to howard wound Topical: N/A Primary dressing: Hydrofiber with silver (Aquacel AG)- cut to fit to wound bed Secondary dressinx4 woven gauze (non-sterile), Exudry Secure with: Kerlix wrap Compression Therapy: Coban 2 wrap to left lower extremity Dressing Change Frequency: Three times each week Wound #2 (Left medial upper leg): Cleanser: Cleanse with Normal Saline, Cleanse with Vashe (if you can get Vashe, you can clean with the vashe) Periwound: Apply Zinc Oxide to howard wound Topical: N/A Primary dressing: Hydrofiber with silver (Aquacel AG)- cut to fit to wound bed Secondary dressinx4 woven gauze (non-sterile), Exudry Secure with: Kerlix wrap- if needed, we secured with just an bladimir at the wound clinic Compression Therapy: 4 Bladimir Wrap Dressing Change Frequency: Three times each week Wound #3 (Left buttocks): Cleanser: Cleanse with Normal Saline Periwound: Apply Zinc Oxide to howard wound Topical: N/A Primary dressing: Hydrofiber with silver (Aquacel AG)- cut to fit to wound bed Secondary dressinx4 woven gauze (non-sterile) Secure with: 4 hypafix tape Compression Therapy: N/A Dressing Change Frequency: Three times each week Wound #4 (Right Buttocks): Cleanser: Cleanse with Normal Saline Periwound: Apply Zinc Oxide to howard wound Topical: N/A Primary dressing: Hydrofiber with silver (Aquacel AG)- cut to fit to wound bed Secondary dressinx4 woven gauze (non-sterile) Secure with: 4 hypafix tape Compression Therapy: N/A Dressing Change Frequency: Three times each week 01/01/2025 11:51 AM EDT HUSSEIN Farooq * Tianna Corcoran RN - 01/01/2025 10:30 AM EDT Discharge Patient directed to check out at front end loader operator and collect visit summary with wound care directions and book follow up as directed. Dressings applied: Wound #1 (Left anterior lower leg): Cleanser: Cleanse with Normal Saline, Periwound: Apply Zinc Oxide to howard wound Primary dressing: Hydrofiber with silver (Aquacel AG)- cut to fit to wound bed Secondary dressing: Exudry Secure with: Kerlix wrap Compression Therapy: Coban 2 wrap to left lower extremity Wound #2 (Left medial upper leg): Cleanser: Cleanse with Normal Saline, Periwound: Apply Zinc Oxide to howard wound Primary dressing: Hydrofiber with silver (Aquacel AG)- cut to fit to wound bed Secondary dressinx4 woven gauze (non-sterile), ABD Secure with: Kerlix wrap Compression Therapy: 6 Bladimir Wrap Wound #3 (Left buttocks): Cleanser: Cleanse with Normal Saline Periwound: Apply Zinc Oxide to howard wound Primary dressing: Hydrofiber with silver (Aquacel AG)- cut to fit to wound bed Secondary dressinx4 woven gauze (non-sterile) Secure with: 4 hypafix tape Wound #4 (Right Buttocks): Cleanser: Cleanse with Normal Saline Periwound: Apply Zinc Oxide to howard wound Primary dressing: Hydrofiber with silver (Aquacel AG)- cut to fit to wound bed Secondary dressinx4 woven gauze (non-sterile) Secure with: 4 hypafix tape Dressing technique was demonstrated and explained. Patient questions answered. Pt discharge from wound care center without issue or incidence. documented in this encounter Plan of Treatment Upcoming Encounters Date Type Department Care Team (Late st Contact Info) Description 01/08/2025 9:30 AM EDT Clinical Support [facility] [address] [place] [phone] 01/22/2025 9:30 AM EDT Clinical Support [facility] [address] [place] [phone] 03/10/2025 11:30 AM EDT Office Visit [facility] [address] [place] [phone] Reese Christensen MD [address] [place] [phone] 06/02/2025 8:15 AM EDT [facility] [address] [phone] Ronald Schilling MD [address] [id number] documented as of this encounter Goals Goal Patient Goal Type Associated Problems Recent Progress Patient-Stated? Author Decrease Wound Volume by X% by date (in notes) Care Plan Impaired Tissue On track( 025 11:14 AM EDT) No Camilla Perales RN Patient and Caregiver Understand Wound Care Education Care Plan Impaired Tissue On track( 025 11:14 AM EDT) No Camilla Perales, ballistics expert volume breakdown reduced by X% by week 4 Care Plan Impaired Tissue No Camilla Perales, ballistics expert volume breakdown reduced by X% by week 8 Care Plan Impaired Tissue No Camilla Perales ballistics expert volume breakdown reduced by X% by week [...] Perales RN documented as of this encounter Procedures Procedure Name Priority Date/Time Associated Diagnosis Comments WOUND CARE PROCEDURE Routine 01/01/2025 11:39 AM EDT Pressure injury of right buttock, stage 3 (CMS/HCC V24, CMS/HCC V28) WOUND CARE PROCEDURE Routine 01/01/2025 11:38 AM EDT Pressure injury of left buttock, stage 3 (CMS/HCC V24, CMS/HCC V28) WOUND CARE PROCEDURE Routine 01/01/2025 11:12 AM EDT Non-pressure chronic ulcer of left lower leg with fat layer exposed (CMS/HCC V24, CMS/HCC V28) Venous insufficiency of left lower extremity DEBRIDEMENT Routine 01/01/2025 10:30 AM EDT Venous insufficiency of left lower extremity Non-pressure chronic ulcer of left thigh with fat layer exposed (CMS/HCC V24, CMS/HCC V28) DEBRIDEMENT Routine 01/01/2025 10:30 AM EDT Venous insufficiency of left lower extremity Non-pressure chronic ulcer of left lower leg with fat layer exposed (CMS/HCC V24, CMS/HCC V28) documented in this encounter Results * Wound Care Procedure Pressure Injury Left Buttocks (01/01/2025 11:39 AM EDT) Narrative Alex Ordaz MD - 01/01/2025 11:39 AM EDT HUSSEIN Dubois ? 01/01/2025 11:51 AM Wound Care Procedure Pressure Injury Left Buttocks Date/Time: 01/01/2025 11:39 AM Performed by: HUSSEIN Dubois Authorized by: HUSSEIN Dubois ??Associated wounds: Wound Pressure Injury 12/25/24 Buttocks Left Consent: ??Consent obtained: ??Verbal ??Consent given by: ??Patient ??Risks, benefits, and alternatives were discussed: yes ?Risks discussed: ??Bleeding ??Alternatives discussed: ??No treatment [place] protocol: ??Procedure explained and questions answered to patient or proxy's satisfaction: yes ?Relevant documents present and verified: yes ?Patient identity confirmed: ??Verbally with patient Sedation: ??Sedation type: ??None Anesthesia: ??Anesthesia method: ??Topical application Post-procedure details: ??Procedure completion: ??Tolerated with difficulty Comments: ?? Left buttocks wound is noted. ??Patient has a fair amount of hypergranulation tissue. ??Patient also anesthetized with topical lidocaine spray. ??Silver nitrate used for chemical cautery/debridement. us Ever [facility] IN CLINIC/BEDSIDE ORDERABLE S Final Result * Wound Care Procedure Pressure Injury Right Buttocks (01/01/2025 11:38 AM EDT) Narrative Alex Ordaz MD - 01/01/2025 11:38 AM EDT HUSSEIN Dubois ? 01/01/2025 11:51 AM Wound Care Procedure Pressure Injury Right Buttocks Date/Time: 01/01/2025 11:38 AM Performed by: HUSSEIN Dubois Authorized by: HUSSEIN Dubois ??Associated wounds: Wound Pressure Injury 12/25/24 Buttocks Right Consent: ??Consent obtained: ??Verbal ??Consent given by: ??Patient ??Risks, benefits, and alternatives were discussed: yes ?Risks discussed: ??Bleeding ??Alternatives discussed: ??No treatment [place] protocol: ??Procedure explained and questions answered to patient or proxy's satisfaction: yes ?Relevant documents present and verified: yes ?Patient identity confirmed: ??Verbally with patient Sedation: ??Sedation type: ??None Anesthesia: ??Anesthesia method: ??Topical application Post-procedure details: ??Procedure completion: ??Tolerated with difficulty Comments: ?? Right buttocks wound is noted. ??Patient has a fair amount of hypergranulation tissue. ??Patient also anesthetized with topical lidocaine spray. ??Silver nitrate used for chemical cautery/debridement. us vEer [facility] IN CLINIC/BEDSIDE ORDERABLE S Final Result * Wound Care Procedure Other (comment) (Lymphedema ) Left;Anterior;Lower Leg (01/01/2025 11:12 AM EDT) Narrative Alex Ordaz MD - 01/01/2025 11:12 AM EDT HUSSEIN Dubois ? 01/01/2025 11:51 AM Wound Care Procedure Other (comment) (Lymphedema ) Left;Anterior;Lower Leg Date/Time: 01/01/2025 11:12 AM Performed by: Tianna Corcoran RN Authorized by: Alex Ordaz MD ??Associated wounds: Wound Other (comment) Leg Left;Anterior;Lower Consent: ??Consent obtained: ??Verbal ??Consent given by: ??Patient ??Risks, benefits, and alternatives were discussed: yes ?Risks discussed: ??Infection and pain ??Alternatives discussed: ??Delayed treatment [place] protocol: ??Procedure explained and questions answered to patient or proxy's satisfaction: yes ?Relevant documents present and verified: yes ?Patient identity confirmed: ??Verbally with patient Sedation: ??Sedation type: ??None Anesthesia: ??Anesthesia method: ??None Procedure details: ??Indications: open wounds ?Wound location: ??Leg ??Leg location: ??L lower leg ??Wound age (days): ??>14 Dressing: ??Wrapped with: Coban 2 left leg. Post-procedure details: ??Procedure completion: ??Tolerated us Alex Ordaz MD IN CLINIC/BEDSIDE ORDERAB LES Final Result * Debridement Other (comment) (Lymphedema ) Left;Upper;Medial Leg (01/01/2025 10:30 AM EDT) Narrative Alex Ordaz MD - 01/01/2025 10:30 AM EDT HUSSEIN Dubois ? 01/01/2025 11:51 AM Debridement Other (comment) (Lymphedema ) Left;Upper;Medial Leg Performed by: HUSSEIN Dubois Authorized by: HUSSEIN Dubois ??Associated wounds: Wound Other (comment) Leg Left;Upper;Medial Consent: ??Consent obtained: ??Verbal ??Consent given by: ??Patient ??Risks discussed: Yes ?? Time out: Immediately prior to the procedure a time out was called ?? Debridement Details: ??Performed by: ??PA ??Type: surgical ?Level: subcutaneous tissue ?Pain control: ??Lidocaine 4% ??Severity of Tissue Pre Debridement: ??Fat layer exposed ??Severity of Tissue Post Debridement: ??Fat layer exposed ??Time taken: ??01/01/2025 10:54 AM ??Length (cm): ??11.5 ??Width (cm): ??7 ??Depth (cm): ??0.1 ??Area (cm^2): ??80.5 ??Time taken: ??01/01/2025 10:55 AM ??Length (cm): ??11.5 ??Width (cm): ??7 ??Depth (cm): ??0.1 ??Percent Debrided (%): ??50 ??Surface Area (cm^2): ??80.5 ??Area Debrided (cm^2): ??40.25 ??Volume (cm^3): ??8.05 ??Tissue and other material debrided: dermis, epidermis and subcutaneous tissue ?Devitalized tissue debrided: biofilm and slough ?Instrument: ??Curette ??Amount of bleeding: none ?Hemostasis obtained with: ??Not applicable ??Procedural pain: ??0 ??Post-procedural pain: ??0 ??Response to treatment: ??Procedure was tolerated well us Ever [facility] IN CLINIC/BEDSIDE ORDERABLE S Final Result * Debridement Other (comment) (Lymphedema ) Left;Anterior;Lower Leg (01/01/2025 10:30 AM EDT) Narrative Alex Ordaz MD - 01/01/2025 10:30 AM EDT HUSSEIN Dubois ? 01/01/2025 11:51 AM Debridement Other (comment) (Lymphedema ) Left;Anterior;Lower Leg Performed by: HUSSEIN Dubois Authorized by: HUSSEIN Dubois ??Associated wounds: Wound Other (comment) Leg Left;Anterior;Lower Consent: ??Consent obtained: ??Verbal ??Consent given by: ??Patient ??Risks discussed: Yes ?? Time out: Immediately prior to the procedure a time out was called ?? Debridement Details: ??Performed by: ??PA ??Type: surgical ?Level: subcutaneous tissue ?Pain control: ??Lidocaine 4% ??Severity of Tissue Pre Debridement: ??Fat layer exposed ??Severity of Tissue Post Debridement: ??Fat layer exposed ??Time taken: ??01/01/2025 10:53 AM ??Length (cm): ??13 ??Width (cm): ??26.2 ??Depth (cm): ??0.1 ??Area (cm^2): ??340.6 ??Time taken: ??01/01/2025 10:54 AM ??Length (cm): ??13 ??Width (cm): ??26.2 ??Depth (cm): ??0.1 ??Percent Debrided (%): ??65 ??Surface Area (cm^2): ??340.6 ??Area Debrided (cm^2): ??221.39 ??Volume (cm^3): ??34.06 ??Tissue and other material debrided: dermis, epidermis and subcutaneous tissue ?Devitalized tissue debrided: biofilm and slough ?Instrument: ??Curette ??Amount of bleeding: none ?Hemostasis obtained with: ??Not applicable ??Procedural pain: ??0 ??Post-procedural pain: ??0 ??Response to treatment: ??Procedure was tolerated well us Ever [facility] IN CLINIC/BEDSIDE ORDERABLE S Final Result documented in this encounter Visit Diagnoses Diagnosis Venous insufficiency of left lower extremity- Primary Non-pressure chronic ulcer of left lower leg with fat layer exposed (CMS/HCC V24, CMS/HCC V28) Non-pressure chronic ulcer of left thigh with fat layer exposed (CMS/HCC V24, CMS/HCC V28) Pressure injury of left buttock, stage 3 (CMS/HCC V24, CMS/HCC V28) Pressure injury of right buttock, stage 3 (CMS/HCC V24, CMS/HCC V28) documented in this encounter Additional Health Concerns Active Problems Noted Date Diagnosed Date Impaired Tissue 12/19/2024 Education needed on impact of smoking on wound 0 12/19/2024 Education needed related to ulceration/compromised skin integrity. 12/19/2024 documented as of this encounter Care Teams Software Developer Relationship Specialty Start Date End Date Carlos Jerez MD [address] [id number] PCP - General Internal Medicine 09/12/18 documented as of this encounter
--- OUTSIDE RECORDS SUMMARY | 2025-01-06 18:15 | XMS_ITS | Clinical Summary ---
Author Organization 175 [facility] Address [address] [place] [address] Phone Care Team Providers Care Coal Washer Name Role Phone Carlos Jerez MD Primary Care Provider [phone] Allergies Active Allergy Reactions Criticality Noted Date Comments Codeine-Guaifenesin 12/30/2019 Reports itching legs and feet, tingling of fingers Medications fluticasone-salm eterol (ADVAIR DISKUS) 250-50 mcg/dose diskus inhaler Inhale 1 puff by mouth. 01/25/20 24 Active ibuprofen (ADVIL,MOTRIN) 200 mg tablet Active medical supply, miscellaneous (MISCELLANEOUS MEDICAL SUPPLY MISC) Spacer Device Adult Use with ProAir inhaler Active ammonium lactate (AmLactin) 12 % lotion Apply twice a day on dry areas for 2 weeks 400 g 3 12/06/19 25 Active furosemide (LASIX) 20 mg tablet Take 1 tablet (20 mg total) by mouth 1 (one) time each day for 10 days. 10 each 12/06/19 25 Active albuterol HFA (PROAIR HFA ; PROVENTIL HFA ; VENTOLIN HFA) 90 mcg/actuation inhalerIndicatio ns:Chronic cough,Mild persistent asthma, uncomplicated INHALE 2 PUFFS INTO THE LUNGS EVERY 4 HOURS NEEDED FOR COUGH OR WHEEZING FOR UP TO 30 DAYS. 8.5 each 2 12/29/20 25 Active ferrous sulfate 325 mg (65 mg elemental iron) tablet Take 1 tablet (325 mg total) by mouth every other day. 45 each 01/06/20 25 026 Active folic acid (FOLVITE) 1 mg tablet Take 1 tablet (1 mg total) by mouth 1 (one) time each day. 90 each 01/06/20 25 026 Active fluticasone propion-salmeter oL (ADVAIR HFA) 115-21 mcg/actuation inhaler Inhale 2 puffs by mouth. 12/14/19 24 025 Discontinued albuterol HFA (PROAIR HFA ; PROVENTIL HFA ; VENTOLIN HFA) 90 mcg/actuation inhaler Inhale 2 puffs by mouth. 08/11/20 025 Discontinued fluticasone-salm eterol (Wixela Inhub) 250-50 mcg/dose diskus inhalerIndicatio ns:Mild persistent asthma, unspecified whether complicated Inhale 1 puff by mouth 2 (two) times a day. Rinse mouth with water after use to reduce aftertaste and incidence of candidiasis. Do not swallow. 1 each 11/29/19 25 025 Discontinued amoxicillin-clav ulanate (AUGMENTIN) 875-125 mg per tablet Take 1 tablet by mouth 2 (two) times a day for 7 days. 14 each 12/06/19 25 025 sulfamethoxazole -trimethoprim (BACTRIM DS,SEPTRA DS) 800-160 mg per tablet Take 1 tablet by mouth 2 (two) times a day for 7 days. 14 each 12/06/19 25 025 fluticasone propion-salmeter oL (ADVAIR HFA) 115-21 mcg/actuation inhaler Inhale 2 puffs by mouth 2 (two) times a day. 1 each 12/30/19 25 025 Discontinued Active Problems Problem Noted Date Diagnosed Date Hyperlipidemia 07/09/2021 Primary hypertension 07/09/2021 Vitamin B12 deficiency 07/09/2021 Morbid obesity with BMI of 6 0.0-69.9, adult ([facility] V24, [facility] V28) 09/02/2020 Gynecomastia 08/23/2020 Chronic cough 01/26/2020 Multifocal pneumonia 01/26/2020 Seasonal allergic conjunctivitis 01/26/2020 Seasonal allergic rhinitis due to pollen 020 GERD (gastroesophageal reflux disease) 8 Complication of stomach banding 05/01/2018 Vitamin D deficiency 05/01/2018 Eczema 02/27/2017 Proteinuria 02/27/2017 Decreased testosterone level 11/30/2016 Allergic rhinitis 04/17/2016 Depression with anxiety 04/17/2016 Bilateral carpal tunnel syndrome 04/13/2015 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 Encounters Date Type Department Care Team Description 01/05/2025 11:30 AM EDT Office Visit [facility] Hematology Oncology [address] [place] [address] Reese Christensen MD Normocytic anemia (Primary Dx); Cellulitis of left leg; Hypoalbuminemia; Sickle cell trait ([facility] V24) 01/05/2025 Telephone Internal Medicine - [place] [address] [address] Cathy Coyne MA Request For Order(s) ([facility] Order # [id number]/) 01/05/2025 Telephone Internal Medicine [facility] [address] [phone] Cathy Coyne [place] Request For Order(s) ([facility] Order # [id number]/) 01/05/2025 Telephone Internal Medicine [facility] [address] [phone] Cathy Coyne [place] Request For Order(s) ([facility] Order # [id number]/) 01/01/2025 10:30 AM EDT Office Visit [facility] [address] [place] [address] Ever Torrez PA Venous insufficiency of left lower extremity (Primary Dx); Non-pressure chronic ulcer of left lower leg with fat layer exposed ([facility] V24, [facility] V28); Non-pressure chronic ulcer of left thigh with fat layer exposed ([facility] V24, [facility] V28); Pressure injury of left buttock, stage 3 ([facility] V24, CMS/HCC V28); Pressure injury of right buttock, stage 3 ([facility] V24, [facility] V28) 01/01/2025 Telephone Internal Medicine [facility] [address] [address] Cathy Coyne MA Request For Order(s) ([facility] Cert 11/22/24-01/20/25 Plan Of Care /) 12/31/2024 [facility] [address] [phone] Cathy Coyne MA Request For Order(s) ([facility] Order # [id number]/) 12/31/2024 Telephone Internal [facility] [address] [address] Cathy Coyne [place] Request For Order(s) ([facility] Order # [id number]/) 12/31/2024 Telephone Internal [address] [address] Cathy Coyne MA Request For Order(s) ([facility] Order # [id number]/) 12/31/2024 [facility] [address] [address] Cathy Coyne [place] Request For Order(s) ([facility] Order # [id number]/) 12/31/2024 [facility] [address] [phone] Cathy Coyne [place] Request For Order(s) ([facility] Order # [id number]/) 12/30/2024 Telephone [facility] [address] [place] [address] Fanny Rizvi LPN 12/30/2024 [facility] [address] [phone] Cathy Coyne [place] Request For Order(s) ([facility] Order # [id number]/) 12/26/2024 Telephone Pulmonolgy [address] [phone] Ronald Schilling MD Medication Problem 12/26/2024 Telephone Internal Medicine [address] [phone] Stephania Moscoso MA Referral 12/25/2024 10:30 AM EDT Office Visit [facility] [address] [place] [phone] Alex Ordaz MD Lymphedema (Primary Dx); Non-pressure chronic ulcer of left lower leg with fat layer exposed (CMS/HCC V24, CMS/HCC V28); Non-pressure chronic ulcer of left thigh with fat layer exposed (CMS/HCC V24, CMS/HCC V28); Venous insufficiency of left lower extremity; Pressure injury of left buttock, stage 3 (CMS/HCC V24, CMS/HCC V28); Pressure injury of right buttock, stage 3 (CMS/HCC V24, CMS/HCC V28) 12/24/2024 10:45 AM EDT Office Visit Internal Medicine [address] [phone] Carlos Jerez MD Dysuria (Primary Dx); Oliguria 12/24/2024 Telephone [facility] [address] [place] [phone] Khan appointment needed 12/24/2024 Telephone Internal Medicine [address] [phone] Melissa Glass MA urine 12/19/2024 8:00 AM EDT Consult [facility] [address] [place] [phone] Ever Torrez PA Lymphedema (Primary Dx); Cellulitis and abscess of left leg; Non-pressure chronic ulcer of left lower leg with fat layer exposed (CMS/HCC V24, CMS/HCC V28); Non-pressure chronic ulcer of left thigh with fat layer exposed ([facility] V24, [facility] V28); Venous insufficiency of left lower extremity 12/17/2024 Telephone Internal Medicine [address] [phone] Marva Carolina MA faxed form (Disability ) 12/12/2024 Telephone Internal Medicine [address] [phone] Carlos Jerez MD Form: FMLA 12/08/2024 Telephone Internal Medicine [address] [phone] Marva Carolina [place] faxed order ([email or web address]) 12/05/2024 9:30 AM EDT Office Visit Internal [address] [phone] Carlos Jerez MD Cellulitis and abscess of left leg (Primary Dx); Lymphedema; Primary hypertension 12/04/2024 Telephone Internal Medicine [address] [phone] Carlos Jerez MD VNA 12/03/2024 Telephone Internal [address] [phone] Carlos Jerez MD 12/02/2024 Telephone Internal Medicine [address] [address] Carlos Jerez MD Low grade fever 11/28/2024 3:30 PM EST Office Visit Pulmonolgy [address] [phone] Ronald Schilling MD Mild persistent asthma, unspecified whether complicated (Primary Dx); Morbid obesity with BMI of 60.0-69.9, adult ([facility] V24, [facility] V28) 11/25/2024 9:00 AM EST Office Visit Internal [address] [phone] Carlos Jerez MD Cellulitis and abscess of left leg (Primary Dx); Hospital discharge follow-up; Morbid obesity with BMI of 60.0-69.9, adult ([facility] V24, [facility] V28) 11/21/2024 Telephone Internal Medicine - [place] 175 [facility] [address] [place] [address] Carlos Jerez MD VNA from Last 3 Months Immunizations Name Administration Dates Next Due Influenza trivalent, 0.5mL, preservative free (Fluarix; FluLaval; Fluzone) ages 6mo and older (Afluria) 3 years and older 08/03/2010 PPD Test 01/26/2014 Tdap Tetanus diptheria acell ular pertussis (Boostrix; Adacel) 7yo and older 06/09/2013 Surgical History Surgery Date Site/Laterality Comments OTHER SURGICAL HISTORY PROCEDURE: [place] LAPS GASTRIC RESTRICTIVE PROCEDURE PLACE DEVICE COLONOSCOPY Medical History Medical History Date Comments GERD (gastroesophageal reflu x disease) 05/09/2018 DX:GERD (gastroesophageal re flux disease) History of diverticulitis DX:His tory of diverticulitis Asthma DX:Asthma Hyperlipidemia 07/09/2021 DX:Hyperlipidemi a Primary hypertension 07/09/2021 DX:Primary hypertension Lymphedema Family History Medical History Relation Name Comments Diabetes Aunt Maternal No Known Problems Father No Known Problems Mother Relation Name Status Comments Aunt Father Mother Social History Tobacco Use Types Packs/Day Years Used Date Smoking Tobacco: Never Smokeless Tobacco: Never Tobacco Cessation:Counseling Given: Not Answered Alcohol Use Standard Drinks/Week Comments Not Currently 0 (1 standard drink = 0.6 oz pur e alcohol) occasional socially Sex and Gender Information Value Date Recorded Sex Assigned at Not on file Legal Sex Male 8:39 PM EST Gender Identity Not on file Sexual Orientation Not on file Obstetrics History Last Filed Vital Signs Vital Sign Reading Time Taken Comments Blood Pressure 152/88 01/05/2025 11:39 AM EDT Pulse 105 01/05/2025 11:39 AM EDT Temperature 37 ??C (98.6 ??F) 01/05/2025 11:39 AM EDT Respiratory Rate 20 01/01/2025 11:20 AM EDT Oxygen Saturation 97% 01/05/2025 11:39 AM EDT Inhaled Oxygen Concentration - - Weight 215 kg (475 lb) 01/05/2025 11:39 AM EDT Height 177.8 cm (5' 10 ) 01/05/2025 11:39 AM EDT Body Mass Index 68.16 01/05/2025 11:39 AM EDT Plan of Treatment Upcoming Encounters Date Type Department Care Team (Late st Contact Info) Description 01/08/2025 9:30 AM EDT Clinical Support [facility] [address] [place] [address] 01/22/2025 9:30 AM EDT Clinical Support [facility] [address] [place] [phone] 03/10/2025 11:30 AM EDT Office Visit [facility] Hematology Oncology [address] [place] [address] Madelin-Reese Avila MD [address] [place] [address] 06/02/2025 8:15 AM EDT Office Visit Pulmonolgy - [place] [address] [phone] Ronald Schilling MD [address] [address] Health Maintenance Due Date Last Done Comments Hepatitis B Vaccines (1 of 3 - 19+ 3-dose series) 11/23/1995 Pneumococcal Vaccine: Pediatrics (0 to 5 Years) and At-Risk Patients (6 to 64 Years) (1 of 2 - PCV) 11/23/1995 Colorectal Cancer Screening: Colonoscopy 09/02/2022 Depression Screening 09/02/2022 HIV Screening 09/02/2022 Hepatitis C Screening 09/02/2022 Social Influencers of Health Screening 09/02/2022 DTaP,Tdap,and Td Vaccines (2 - Td or Tdap) 06/09/2023 06/09/2013 COVID-19 Vaccine (2023-2 5 season) 2024 08/11/2021, 02/03/2021, 01/06/2021 Influenza Vaccine (Season Ended) 2025 08/03/2010 Hypertension/CHF/CAD Annual BMP Blood Test 12/24/2025 12/24/2024, 11/25/2024, 06/06/2022 Cholesterol Screening (Lipid Panel) 06/06/2027 06/06/2022, 06/06/2022 HIB Vaccines Aged Out No longer eligi ble based on patient's age to complete this topic HPV Vaccines Aged Out No longer eligi ble based on patient's age to complete this topic Hepatitis A Vaccines Aged Out No long er eligible based on patient's age to complete this topic IPV Vaccines Aged Out No longer eligi ble based on patient's age to complete this topic MMR Vaccines Aged Out No longer eligi ble based on patient's age to complete this topic Meningococcal ACWY Vaccine Aged Out N o longer eligible based on patient's age to complete this topic Meningococcal B Vaccine Aged Out No l onger eligible based on patient's age to complete this topic RSV Immunization Patients Under 20 months Aged Out No longer eligible b ased on patient's age to complete this topic Varicella Vaccines Aged Out No longer eligible based on patient's age to complete this topic Goals Goal Patient Goal Type Associated Problems Recent Progress Patient-Stated? Author Decrease Wound Volume by X% by date (in notes) Care Plan Impaired Tissue On track( 11:14 AM EDT) Camilla Sullivan RN Patient and Caregiver Understand Wound Care Education Care Plan Impaired Tissue On track( 11:14 AM EDT) No Camilla Perales RN Wound volume breakdown reduced by X% by week 4 Care Plan Impaired Tissue No Camilla Perales RN Wound volume breakdown reduced by X% by week 8 Care Plan Impaired Tissue No Camilla Perales RN Wound volume breakdown reduced by X% by week 12 Care Plan Impaired Tissue No Camilla Perales, JERICA Quit using tobacco (cigarettes, smokeless, etc) Care Plan Education needed on impact of smoking on wound No Camilla Perales RN Reduce tobacco use (cigarettes, smokeless, etc) Care Plan Education needed on impact of smoking on wound No Camilla Perales RN Decrease Wound Volume by X% by date (in notes) Care Plan Education needed on impact of smoking on wound No Camilla Perales, RN Patient and Caregiver Understand Wound Care Education Care Plan Education needed related to ulceration/compr omised skin integrity. Camilla Sullivan, home economist consumer service Procedure Name Priority Date/Time Associated Diagnosis Comments PROTEIN, TOTAL Routine 01/05/2025 12:22 PM EDT Normocytic anemia CBC WITH AUTO DIFFERENTIAL Routine 01/05/2025 12:22 PM EDT Normocytic anemia VITAMIN B12 AND FOLATE Routine 01/05/2025 12:22 PM EDT Normocytic anemia HAPTOGLOBIN Routine 01/05/2025 12:22 PM EDT Normocytic anemia LACTATE DEHYDROGENASE Routine 01/05/2025 12:22 PM EDT Normocytic anemia FERRITIN Routine 01/05/2025 12:22 PM EDT Normocytic anemia IRON AND TIBC Routine 01/05/2025 12:22 PM EDT Normocytic anemia CBC AND DIFFERENTIAL Routine 01/05/2025 12:22 PM EDT Normocytic anemia WOUND CARE PROCEDURE Routine 01/01/2025 11:39 AM [...] fat layer exposed (CMS/HCC V24, CMS/HCC V28) WOUND CARE PROCEDURE Routine 12/25/2024 11:13 AM EDT Non-pressure chronic ulcer of left lower leg with fat layer exposed (CMS/HCC V24, CMS/HCC V28) Venous insufficiency of left lower extremity DEBRIDEMENT Routine 12/25/2024 10:30 AM EDT Lymphedema Non-pressure chronic ulcer of left lower leg with fat layer exposed (CMS/HCC V24, CMS/HCC V28) Venous insufficiency of left lower extremity CBC WITH AUTO DIFFERENTIAL Routine 12/24/2024 12:47 PM EDT Dysuria Oliguria CBC AND DIFFERENTIAL Routine 12/24/2024 12:47 PM EDT Dysuria Oliguria COMPREHENSIVE METABOLIC PANEL Routine 12/24/2024 12:47 PM EDT Dysuria Oliguria VICK URINE CULTURE TUBE Routine 12/24/2024 12:25 PM EDT Dysuria Oliguria URINALYSIS WITH REFLEX MICROSCOPIC AND CULTURE Routine 12/24/2024 12:25 PM EDT Dysuria Oliguria URINALYSIS WITH REFLEX MICROSCOPIC AND CULTURE Routine 12/24/2024 12:25 PM EDT Dysuria Oliguria CULTURE URINE Routine 12/24/2024 12:25 PM EDT Dysuria Oliguria POC URINE AUTO W/O MICRO Routine 12/24/2024 12:15 PM EDT Dysuria WOUND CARE PROCEDURE Routine 12/19/2024 9:22 AM EDT Lymphedema Non-pressure chronic ulcer of left lower leg with fat layer exposed (CMS/HCC V24, CMS/HCC V28) Non-pressure chronic ulcer of left thigh with fat layer exposed (CMS/HCC V24, CMS/HCC V28) DEBRIDEMENT Routine 12/19/2024 8:00 AM EDT Non-pressure chronic ulcer of left lower leg with fat layer exposed (CMS/HCC V24, CMS/HCC V28) Non-pressure chronic ulcer of left thigh with fat layer exposed (CMS/HCC V24, CMS/HCC V28) DEBRIDEMENT Routine 12/19/2024 8:00 AM EDT Non-pressure chronic ulcer of left lower leg with fat layer exposed (CMS/HCC V24, CMS/HCC V28) Non-pressure chronic ulcer of left thigh with fat layer exposed (CMS/HCC V24, CMS/HCC V28) CBC WITH AUTO DIFFERENTIAL Routine 11/25/2024 10:26 AM EST Cellulitis and abscess of left leg COMPREHENSIVE METABOLIC PANEL Routine 11/25/2024 10:26 AM EST Cellulitis and abscess of left leg CBC AND DIFFERENTIAL Routine 11/25/2024 10:26 AM EST Cellulitis and abscess of left leg LIPID PANEL Routine 06/06/2022 from Last 3 Months or Most Recently Relevant to Health Maintenance Results * Vitamin B12 and folate (01/05/2025 12:22 PM EDT) [facility] Vitamin B-12 517 250 - 900 pcg/mL LAB CHEMISTRY METHOD 01/05/2025 2:39 PM EDT [facility] Folate 3.8 2.8 - 17.0 ng/ml LAB CHEMISTRY METHOD 01/05/2025 2:39 PM EDT [facility] Blood Venous blood specimen / Unknown Venipuncture / Unknown 01/05/2025 12:22 PM EDT 01/05/2025 1:01 PM EDT us Reese Christensen MD LAB BLOOD ORDERABLE S Final Result [facility] [address] [place] [address], * (ABNORMAL) CBC auto differential (01/05/2025 12:22 PM EDT) Only the most recent of3 resultswithin the time period is included. WBC 6.3 4.8 - 10.8 K/mcL LAB HEMETOLOGY METHOD 01/05/2025 1:40 PM EDT [facility] RBC 4.60 4.50 - 5.50 M/mcL LAB HEMETOLOGY METHOD 01/05/2025 1:40 PM EDT [facility] Hemoglobin 12.3(L) 13.5 - 17.5 g/dL LAB HEMETOLOGY METHOD 01/05/2025 1:40 PM EDT [facility] Hematocrit 38.3(L) 42.0 - 54.0 % LAB HEMETOLOGY METHOD 01/05/2025 1:40 PM EDT [facility] MCV 82.9 79.0 - 98.0 FL LAB HEMETOLOGY METHOD 01/05/2025 1:40 PM EDT [facility] MCH 26.6(L) 27.0 - 32.0 pcg LAB HEMETOLOGY METHOD 01/05/2025 1:40 PM EDT [facility] MCHC 32.1 32.0 - 37.0 g/dL LAB HEMETOLOGY METHOD 01/05/2025 1:40 PM EDT [facility] RDW 16.0(H) 11.0 - 15.0 % LAB HEMETOLOGY METHOD 01/05/2025 1:40 PM EDT [facility] Platelets 400 130 - 400 K/mcL LAB HEMETOLOGY METHOD 01/05/2025 1:40 PM EDT [facility] MPV 9.7 7.0 - 11.0 FL LAB HEMETOLOGY METHOD 01/05/2025 1:40 PM EDT [facility] NRBC 0.0 <1.0 % LAB HEMETOLOGY METHOD [facility]/05[facility]2025 [facility] NR[facility] Absolute 0.00 <0.10 K/mcL LAB HEMETOLOGY METHOD 01/05/2025 1:40 PM [facility] Neutrophils Relative 55.5 % LAB HEMETOLOGY METHOD 01/05/2025 1:40 PM EDT [facility] Lymphocytes Relative 20.6 % LAB HEMETOLOGY METHOD 01/05/2025 1:40 PM [facility] Monocytes Relative 7.6 % LAB HEMETOLOGY METHOD 01/05/2025 1:40 PM [facility] Eosinophils Relative 14.7 % LAB HEMETOLOGY METHOD 01/05/2025 1:40 PM [facility] Basophils Relative 1.3 % LAB HEMETOLOGY METHOD 01/05/2025 1:40 PM [facility] Immature Granulocytes Relative 0.3 % LAB HEMETOLOGY METHOD 01/05/2025 1:40 PM [facility] Neutrophils Absolute 3.50 1.50 - 7.00 K/mcL LAB HEMETOLOGY METHOD 01/05/2025 1:40 PM EDT [facility] Lymphocytes Absolute 1.30 1.00 - 5.00 K/mcL LAB HEMETOLOGY METHOD 01/05/2025 1:40 PM EDT [facility] Monocytes Absolute 0.48 0.20 - 1.00 K/mcL LAB HEMETOLOGY METHOD 01/05/2025 1:40 PM [facility] Eosinophils Absolute 0.93(H) 0.00 - 0.50 K/mcL LAB HEMETOLOGY METHOD 01/05/2025 1:40 PM EDT [facility] Basophils Absolute 0.08 0.00 - 0.20 K/[facility] LAB HEMETOLOGY METHOD 01/05/2025 1:40 PM EDT [facility] Immature Granulocytes Absolute 0.02 0.00 - 0.03 K/[facility] LAB HEMETOLOGY METHOD 01/05/2025 1:40 PM EDT [facility] Blood Venous blood specimen / Unknown Venipuncture / Unknown 01/05/2025 12:22 PM EDT 01/05/2025 1:00 PM EDT us Reese Christensen MD LAB BLOOD ORDERABLE S Final Result Performing Organization Address City/[facility]/ZIP Co de Phone Number [facility] [address] [place] [address], [place] [phone] * (ABNORMAL) Iron and TIBC (01/05/2025 12:22 PM EDT) Iron 52 50 - 160 mcg/dL LAB CHEMISTRY METHOD 01/05/2025 2:39 PM EDT [facility] TIBC 303 250 - 450 mcg/dL LAB CHEMISTRY METHOD 01/05/2025 2:39 PM EDT [facility] Iron Saturation 17(L) 20 - 50 % LAB CHEMISTRY METHOD 01/05/2025 2:39 PM EDT [facility] Blood Venous blood specimen / Unknown Venipuncture / Unknown 01/05/2025 12:22 PM EDT 01/05/2025 1:01 PM EDT us Reese Christensen MD LAB BLOOD ORDERABLE S Final Result [facility] [address] [place] [address], [place] [phone] * Protein, total (01/05/2025 12:22 PM EDT) Pathologist [facility] Total Protein 7.2 6.0 - 8.0 g/dL LAB CHEMISTRY METHOD 01/05/2025 2:20 PM EDT [facility] Blood Venous blood specimen / Unknown Venipuncture / Unknown 01/05/2025 12:22 PM EDT 01/05/2025 1:01 PM EDT us Reese Christensen MD LAB BLOOD ORDERABLE S Final Result [facility] [address] [place] [address], [place] [phone] * Lactate dehydrogenase (01/05/2025 12:22 PM EDT) [facility] LDH 209 120 - 246 unit/L LAB CHEMISTRY METHOD 01/05/2025 2:15 PM EDT [facility] Blood Venous blood specimen / Unknown Venipuncture / Unknown 01/05/2025 12:22 PM EDT 01/05/2025 1:01 PM EDT us Reese Christensen MD LAB BLOOD ORDERABLE S Final Result Performing Organization Address City/[facility]/ZIP Co de Phone Number [facility] [address] [place] [address], [place] [phone] * (ABNORMAL) Haptoglobin (01/05/2025 12:22 PM EDT) Pathologist [facility] Haptoglobin 317(H) 16 - 200 mg/dL LAB CHEMISTRY METHOD 01/05/2025 2:15 PM EDT [facility] Blood Venous blood specimen / Unknown Venipuncture / Unknown 01/05/2025 12:22 PM EDT 01/05/2025 1:01 PM EDT us Reese Christensen MD LAB BLOOD ORDERABLE S Final Result Performing Organization Address [facility] de Phone Number [facility] [address] [place] [address], * Ferritin (01/05/2025 12:22 PM EDT) Ferritin 145 26 - 388 ng/mL LAB CHEMISTRY METHOD 01/05/2025 2:39 PM EDT [facility] Blood Venous blood specimen / Unknown Venipuncture / Unknown 01/05/2025 12:22 PM EDT 01/05/2025 1:01 PM EDT us Reese Christensen MD LAB BLOOD ORDERABLE S Final Result Performing Organization Address [facility] de Phone Number [facility] [address] [place] [address], * Wound Care Procedure Pressure Injury Left [...] ?Risks discussed: ??Bleeding ??Alternatives discussed: ??No treatment [place] protocol: ??Procedure explained and questions answered to [...] ?Risks discussed: ??Bleeding ??Alternatives discussed: ??No treatment [place] protocol: ??Procedure explained and questions answered to [...] ??Infection and pain ??Alternatives discussed: ??Delayed treatment [place] protocol: ??Procedure explained and questions answered to [...] Procedure Other (comment) (Lymphedema ) Left;Anterior;Lower Leg (12/25/2024 11:13 AM EDT) Narrative Alex Ordaz MD - 12/25/2024 11:13 AM EDT Alex Ordaz MD ? 12/25/2024 12:28 PM Wound Care Procedure Other (comment) (Lymphedema ) Left;Anterior;Lower Leg Date/Time: 12/25/2024 11:13 AM Performed by: Tianna Corcoran RN Authorized by: Alex Ordaz MD ??Associated wounds: Wound Other (comment) Leg Left;Anterior;Lower Consent: ??Consent obtained: ??Verbal ??Consent given by: ??Patient ??Risks, benefits, and alternatives were discussed: yes ?Risks discussed: ??Infection and pain ??Alternatives discussed: ??Delayed treatment Brussels protocol: ??Procedure explained and questions answered to patient or proxy's satisfaction: yes ?Relevant documents present and verified: yes ?Patient identity confirmed: ??Verbally with patient Sedation: ??Sedation type: ??None Anesthesia: ??Anesthesia method: ??None Procedure details: ??Indications: open wounds ?Wound location: ??Leg ??Leg location: ??R lower leg ??Wound age (days): ??>14 Dressing: ??Wrapped with: Coban 2 left leg. Post-procedure details: ??Procedure completion: ??Tolerated us Alex Ordaz MD IN CLINIC/BEDSIDE ORDERAB LES Final Result * Debridement Other (comment) (Lymphedema ) Left;Anterior;Lower Leg (12/25/2024 10:30 AM EDT) Alex Richardson MD - 12/25/2024 10:30 AM EDT Alex Ordaz MD ? 12/25/2024 12:28 PM Debridement Other (comment) (Lymphedema ) Left;Anterior;Lower Leg Performed by: Alex Ordaz MD Authorized by: Alex Ordaz MD ??Associated wounds: Wound Other (comment) Leg Left;Anterior;Lower Consent: ??Consent obtained: ??Verbal ??Consent given by: ??Patient ??Risks discussed: Yes ?? Time out: Immediately prior to the procedure a time out was called ?? Debridement Details: ??Performed by: ??Physician ??Type: surgical ?Level: subcutaneous tissue ?Pain control: ??Lidocaine 4% ??Pain control administration: topical anesthesia ?Severity of Tissue Pre Debridement: ??Fat layer exposed ??Severity of Tissue Post Debridement: ??Fat layer exposed ??Time taken: ??12/25/2024 10:56 AM ??Length (cm): ??13 ??Width (cm): ??25 ??Depth (cm): ??0.1 ??Area (cm^2): ??325 ??Time taken: ??12/25/2024 10:57 AM ??Length (cm): ??13 ??Width (cm): ??25 ??Depth (cm): ??0.2 ??Percent Debrided (%): ??75 ??Surface Area (cm^2): ??325 ??Area Debrided (cm^2): ??243.75 ??Volume (cm^3): ??65 ??Tissue and other material debrided: dermis, epidermis and subcutaneous tissue ?Devitalized tissue debrided: slough ?Instrument: ??Curette ??Amount of bleeding: small ?Hemostasis obtained with: ??Pressure ??Procedural pain: ??0 ??Post-procedural pain: ??0 ??Response to treatment: ??Procedure was tolerated well us Alex Ordaz MD IN CLINIC/BEDSIDE ORDERAB LES Final Result * (ABNORMAL) Comprehensive metabolic panel (12/24/2024 12:47 PM EDT) Only the most recent of2 resultswithin the time period is included. Sodium 140 133 - 145 mmol/L LAB CHEMISTRY METHOD 12/24/2024 8:03 PM [facility] Potassium 4.2 3.5 - 5.5 mmol/L LAB CHEMISTRY METHOD 12/24/2024 8:03 PM [facility] Chloride 104 96 - 110 mmol/L LAB CHEMISTRY METHOD 12/24/2024 8:03 PM [facility] CO2 30 21 - 32 mmol/L LAB CHEMISTRY METHOD 12/24/2024 8:03 PM [facility] Anion Gap 6 3 - 11 LAB CHEMISTRY METHOD 12/24/2024 8:03 PM [facility] Glucose 87 70 - 100 mg/dL LAB CHEMISTRY METHOD 12/24/2024 8:03 PM [facility] BUN 7 5 - 25 mg/dL LAB CHEMISTRY METHOD 12/24/2024 8:03 PM [facility] Creatinine 0.88 0.70 - 1.30 mg/dL LAB CHEMISTRY METHOD 12/24/2024 8:03 PM [facility] eGFR 106 >=60 mL/min/1. 73m2 LAB CHEMISTRY METHOD 12/24/2024 8:03 PM [facility] Comment:Calculation based on the??Chronic Kidney Disease Epidemiology Collaboration (CKD-EPI) equation refit??without adjustment for race. BUN/Creatinine Ratio 8.0 LAB CHEMISTRY METHOD 12/24/2024 8:03 PM [facility] Calcium 8.7 8.5 - 10.5 mg/dL LAB CHEMISTRY METHOD 12/24/2024 8:03 PM [facility] AST (SGOT) 14 10 - 42 unit/L LAB CHEMISTRY METHOD 12/24/2024 8:03 PM [facility] ALT (SGPT) 11 10 - 60 unit/L LAB CHEMISTRY METHOD 12/24/2024 8:03 PM [facility] Alkaline Phosphatase 62 42 - 121 unit/L LAB CHEMISTRY METHOD 12/24/2024 8:03 PM [facility] Total Protein 6.9 6.0 - 8.0 g/dL LAB CHEMISTRY METHOD 12/24/2024 8:03 PM [facility] Albumin 2.4(L) 3.2 - 5.0 g/dL LAB CHEMISTRY METHOD 12/24/2024 8:03 PM [facility] Total Bilirubin 0.7 0.0 - 1.4 mg/dL LAB CHEMISTRY METHOD 12/24/2024 8:03 PM [facility] Blood Venous blood specimen / Unknown Venipuncture / Unknown 12/24/2024 12:47 PM EDT 12/24/2024 1:03 PM EDT us Carlos Jerez MD LAB BLOOD ORDERABLES Final Resul t [facility] [address] [place] [address], [place] [phone] * (ABNORMAL) Urinalysis with reflex microscopic and culture (12/24/2024 12:25 PM EDT) Specific [place] Urine 1.018 1.003 - 1.030 LAB URINALYSIS - AUTOMATED METHOD 12/24/2024 1:49 PM [facility] pH, Urine 6.0 5.0 - 8.0 pH LAB URINALYSIS - AUTOMATED METHOD 12/24/2024 1:49 PM [facility] Leukocytes, Urine Small(A) Negative LAB URINALYSIS - AUTOMATED METHOD 12/24/2024 1:49 PM [facility] Nitrite, Urine Negative Negative LAB URINALYSIS - AUTOMATED METHOD 12/24/2024 1:49 PM [facility] Protein, Urine 300(A) <=Trace mg/dL LAB URINALYSIS - AUTOMATED METHOD 12/24/2024 1:49 PM [facility] Glucose, Urine Negative Negative mg/dL LAB URINALYSIS - AUTOMATED METHOD 12/24/2024 1:49 PM [facility] Ketones, Urine Negative Negative mg/dL LAB URINALYSIS - AUTOMATED METHOD 12/24/2024 1:49 PM [facility] Urobilinogen , Urine 4.0(A) 0.2 - 1.0 mg/dL LAB URINALYSIS - AUTOMATED METHOD 12/24/2024 1:49 PM [facility] Bilirubin, Urine Small(A) Negative LAB URINALYSIS - AUTOMATED METHOD 12/24/2024 1:49 PM [facility] Blood, Urine Large(A) Negative LAB URINALYSIS - AUTOMATED METHOD 12/24/2024 1:49 PM [facility] RBC, Urine 1,569.1(H) 0 - 4 /HPF LAB URINALYSIS - AUTOMATED METHOD 12/24/2024 1:49 PM [facility] WBC, Urine 20.6(H) 0 - 4 /HPF LAB URINALYSIS - AUTOMATED METHOD 12/24/2024 1:49 PM [facility] Squamous Epithelial, Urine 10 0 - 60 /LPF LAB URINALYSIS - AUTOMATED METHOD 12/24/2024 1:49 PM [facility] Non-Squamous Epithelial, Urine 2-5 Transitional epithelial cells. /LPF 12/24/2024 1:49 PM EDT [facility] Bacteria, Urine Negative Negative /HPF LAB URINALYSIS - AUTOMATED METHOD 12/24/2024 1:49 PM EDT [facility] Hyaline Casts, Urine 3.0 0 - 3 /LPF LAB URINALYSIS - AUTOMATED METHOD 12/24/2024 1:49 PM EDT [facility] Urine Urine specimen obtained by clean catch procedure / Unknown Non-blood Collection / Unknown 12/24/2024 12:25 PM EDT 12/24/2024 1:09 PM EDT Carlos Jerez MD LAB URINE ORDERABLES Final Resul t Performing Organization Address [facility]/ZIP Co de Phone Number [facility] [address] [place] [address], [place] [phone] * Vick urine culture tube (12/24/2024 12:25 PM EDT) Extra Tube Hold for add-ons. 12/24/2024 3:01 PM EDT [facility] Comment:Auto resulted. Urine Urine specimen obtained by clean catch procedure / Unknown Non-blood Collection / Unknown 12/24/2024 12:25 PM EDT 12/24/2024 1:09 PM EDT us Carlos Jerez MD LAB URINE ORDERABLES Final Resul t Performing Organization Address City/[facility]/ZIP Co de Phone Number [facility] [address] [place] [address], [place] [phone] * Culture urine (12/24/2024 12:25 PM EDT) Culture, Urine No growth 12/25/2024 7:56 AM EDT [facility] Urine Urine specimen obtained by clean catch procedure / Unknown 12/24/2024 12:25 PM EDT 12/24/2024 1:10 PM EDT Mare Cardona MD LAB MICROBIOLOGY - GENERAL ORD ERABLES Final Result [facility] [address] [place] [address], [place] [phone] * (ABNORMAL) POC Urine Auto W/O Micro (12/24/2024 12:15 PM EDT) Glucose UA POC Trace Negative, Trace mg/dL Bilirubin UA POC 1+(A) Negative, Small Ketones UA POC Trace Negative, Trace Specific [place] UA POC 1.025 Blood UA POC 3+(A) Negative, Large PH UA POC 6.0 Protein UA POC 3+(A) Negative, >=300 mg/dL Urobilinogen UA POC >=8.0 E.U./dL mg/dL Nitrite UA POC Negative Negative Leukocytes UA POC Negative Negative Urine Urine specimen obtained by clean catch procedure / Unknown 12/24/2024 12:15 PM EDT Carlos Jerez MD POINT OF CARE TEST ENTER/EDIT OR DERABLES Final Result * Wound Care Procedure Other (comment) (Lymphedema ) Left;Anterior;Lower Leg (12/19/2024 9:22 AM EDT) Narrative Alex Ordaz MD - 12/19/2024 9:22 AM EDT HUSSEIN Dubois ? 12/19/2024 ??9:29 AM Wound Care Procedure Other (comment) (Lymphedema ) Left;Anterior;Lower Leg Date/Time: 12/19/2024 9:22 AM Performed by: Ramila Hernandez RN Authorized by: HUSSEIN Dubois ??Associated wounds: Wound Other (comment) Leg Left;Anterior;Lower Consent: ??Consent obtained: ??Verbal ??Consent given by: ??Patient ??Risks, benefits, and alternatives were discussed: yes ?Risks discussed: ??Infection and pain ??Alternatives discussed: ??Delayed treatment Brussels protocol: ??Procedure explained and questions answered to patient or proxy's satisfaction: yes ?Relevant documents present and verified: yes ?Patient identity confirmed: ??Verbally with patient Sedation: ??Sedation type: ??None Anesthesia: ??Anesthesia method: ??None Procedure details: ??Indications: open wounds ?Wound location: ??Leg ??Leg location: ??L lower leg ??Wound age (days): ??>14 Dressing: ??Dressing: Coban 2 left leg. Post-procedure details: ??Procedure completion: ??Tolerated us Evre SAVAGE IN CLINIC/BEDSIDE ORDERABLE S Final Result * Debridement Other (comment) (Lymphedema ) Left;Upper;Medial Leg (12/19/2024 8:00 AM EDT) Narrative Alex Ordaz MD - 12/19/2024 8:00 AM EDT HUSSEIN Dubois ? 12/19/2024 ??9:29 AM Debridement Other (comment) (Lymphedema ) Left;Upper;Medial [...] Post Debridement: ??Fat layer exposed ??Time taken: ??12/19/2024 8:44 AM ??Length (cm): ??13 ??Width (cm): ??6.8 ??Depth (cm): ??0.1 ??Area (cm^2): ??88.4 ??Time taken: ??12/19/2024 8:45 AM ??Length (cm): ??13 ??Width (cm): ??6.8 ??Depth (cm): ??0.1 ??Percent Debrided (%): ??75 ??Surface Area (cm^2): ??88.4 ??Area Debrided (cm^2): ??66.3 ??Volume (cm^3): ??8.84 ??Tissue and other material debrided: dermis, epidermis and subcutaneous tissue ?Devitalized tissue debrided: biofilm and slough ?Instrument: ??Curette ??Amount of bleeding: none ?Hemostasis obtained with: ??Not applicable ??Procedural pain: ??0 ??Post-procedural pain: ??0 ??Response to treatment: ??Procedure was tolerated well us Ever SAVAGE IN CLINIC/BEDSIDE ORDERABLE S Final Result * Debridement Other (comment) (Lymphedema ) Left;Anterior;Lower Leg (12/19/2024 8:00 AM EDT) Narrative Alex Ordaz MD - 12/19/2024 8:00 AM EDT HUSSEIN Dubois ? 12/19/2024 ??9:29 AM Debridement Other (comment) (Lymphedema ) Left;Anterior;Lower [...] Post Debridement: ??Fat layer exposed ??Time taken: ??12/19/2024 8:40 AM ??Length (cm): ??16 ??Width (cm): ??26.6 ??Depth (cm): ??0.1 ??Area (cm^2): ??425.6 ??Time taken: ??12/19/2024 8:41 AM ??Length (cm): ??16 ??Width (cm): ??26.6 ??Depth (cm): ??0.1 ??Percent Debrided (%): ??75 ??Surface Area (cm^2): ??425.6 ??Area Debrided (cm^2): ??319.2 ??Volume (cm^3): ??42.56 ??Tissue and other material debrided: dermis, epidermis and subcutaneous tissue ?Devitalized tissue debrided: biofilm and slough ?Instrument: ??Curette ??Amount of bleeding: small ?Hemostasis obtained with: ??Pressure ??Procedural pain: ??0 ??Post-procedural pain: ??0 ??Response to treatment: ??Procedure was tolerated well Ever SAVAGE IN CLINIC/BEDSIDE ORDERABLE S Final Result * Lipid panel (06/06/2022) LDL/HDL Ratio 3 0 - 4 Triglycerides 72 0 - 150 mg/dL Cholesterol 167 0 - 200 mg/dL HDL 62 >=40 mg/dL LDL Cholesterol 91 0 - 100 mg/dL Blood Venous blood specimen / Unknown Historical Provider LAB BLOOD ORDERABLES Ely l Result from Last 3 Months or Most Recently Relevant to Health Maintenance Additional Health Concerns Active Problems Noted Date Diagnosed Date Impaired Tissue 12/19/2024 Education needed on impact of smoking on wound 0 12/19/2024 Education needed related to ulceration/compromised skin integrity. 12/19/2024 Insurance [facility] Care Teams Coal Washer Relationship Specialty Start Date End Date Carlos Jerez MD [address] [place] [id number] PCP - General Internal Medicine 09/12/18
--- OUTSIDE RECORDS SUMMARY | 2025-01-06 18:15 | XMS_ITS | Encounter Summary ---
Author Organization [facility] Address [address] [place] [address] Care Team Providers Care Program Development Specialist Name Role Phone Carlos Jerez MD Primary Care Provider [phone] Reason for Visit * Reason Onset Date Comments Request For Order(s) 01/01/2025 [facility] Health Cert 11/22/24-01/20/25 Plan Of Care Encounter Details Date Type Department Care Team (Late st Contact Info) Description 01/01/2025 Telephone Internal Medicine - [place] [address] [facility] [address] [place] [address] Cathy Coyne MA Request For Order(s) ([facility] Cert 11/22/24-01/20/25 Plan Of Care /) Social History Tobacco Use Types Packs/Day Years [...] Progress Notes * Cathy Coyne MA - 01/01/2025 2:14 PM EDT [facility] Health Cert 11/22/24-01/20/25 Plan Of Care Please sign & documented in this encounter Plan of Treatment Upcoming Encounters Date Type Department Care Team (Late st Contact Info) Description 01/08/2025 9:30 AM EDT Clinical Support [facility] [address] [place] [address] 01/22/2025 9:30 AM EDT Clinical Support [facility] [address] [place] [phone] 03/10/2025 11:30 AM EDT Office Visit [facility] Hematology Oncology [address] [place] [address] Reese Christensen MD [address] [place] [address] 06/02/2025 8:15 AM EDT Office Visit Pulmonolgy - [place] [address] [phone] Ronald Schilling MD [address] [address] documented as of this encounter Goals Goal Patient Goal Type Associated Problems Recent Progress Patient-Stated? Author Decrease Wound Volume by X% by date (in notes) Care Plan Impaired Tissue On track( 025 11:14 AM EDT) No Camilla Perales RN Patient and Caregiver Understand Wound Care Education Care Plan Impaired Tissue On track( 025 11:14 AM EDT) No Camilla Perales, retail sales associate seasonal volume breakdown reduced by X% by week 4 Care Plan Impaired Tissue No Camilla Perales, retail sales associate seasonal volume breakdown reduced by X% by week 8 Care Plan Impaired Tissue No Camilla Perales, retail sales associate seasonal volume breakdown reduced by X% by week 12 Care Plan Impaired Tissue No Camilla Perales, RN Quit using tobacco (cigarettes, smokeless, etc) Care Plan Education needed on impact of smoking on wound No Camilla Perales, JERICA Reduce tobacco use (cigarettes, smokeless, etc) Care Plan Education needed on impact of smoking on wound No Camilla Perales, RN Decrease Wound Volume by X% by [...] documented as of this encounter Care Teams Program Development Specialist Relationship Specialty Start Date End Date Carlos Jerez MD [address] [place] [id number] PCP - General Internal Medicine 09/12/18 documented as of this encounter
--- OUTSIDE RECORDS SUMMARY | 2025-01-06 18:15 | XMS_ITS | Encounter Summary ---
Author Organization [facility] Address [address] [place] [address] Care Team Providers Care Bi Data Modeler Name Role Phone Carlos Jerez MD Primary Care Provider Reason for Visit * Reason Onset Date Comments Request For Order(s) 01/05/2025 [facility] Order # [id number] Encounter Details Date Type Department Care Team (Late st Contact Info) Description 01/05/2025 Telephone Internal Medicine - [place] [address] [facility] [address] [place] [address] Cathy Coyne MA Request For Order(s) ([facility] Order # [id number]/) Social History Tobacco Use Types Packs/Day Years Used Date Smoking Tobacco: Never Smokeless Tobacco: Never Alcohol Use Standard Drinks/Week Comments Not Currently 0 (1 standard drink = 0.6 oz pur e alcohol) occasional socially Sex and Gender Information Value Date Recorded Sex Assigned at Not on file Legal Sex Male 8:39 PM EST Gender Identity Not on file Sexual Orientation Not on file documented as of this encounter Progress Notes * Cathy Coyne MA - 01/05/2025 8:34 AM EDT [facility] Order # [id number] Please sign & documented in this encounter Plan of Treatment Upcoming Encounters Date Type Department Care Team (Late st Contact Info) Description 01/08/2025 9:30 AM EDT Clinical Support [facility] [address] [place] [phone] 01/22/2025 9:30 AM EDT Clinical Support [facility] [address] [place] [address] 03/10/2025 11:30 AM EDT Office Visit [facility] Hematology Oncology [address] [place] [address] Reese Christensen MD [address] [place] [address] 06/02/2025 8:15 AM EDT Office Visit Pulmonolgy [facility] [address] [phone] Ronald Schilling MD [address] [address] documented as of this encounter Goals Goal [...] to ulceration/compr omised skin integrity. No Camilla Perales, RN documented as of this encounter Visit Diagnoses Not on filedocumented in this encounter Additional Health Concerns Active Problems Noted Date Diagnosed Date Impaired Tissue 12/19/2024 Education needed on impact of smoking on wound 0 12/19/2024 Education needed related to ulceration/compromised skin integrity. 12/19/2024 documented as of this encounter Care Teams Bi Data Modeler Relationship Specialty Start Date End Date Carlos Jerez MD [address] [place] [address] PCP - General Internal Medicine 09/12/18 documented as of this encounter
--- OUTSIDE RECORDS SUMMARY | 2025-01-06 18:15 | XMS_ITS | Encounter Summary ---
Author Organization [facility] Address [address] [place] [address] Care Team Providers Care Inspector Screen Printing Name Role Phone Carlos Jerez MD Primary Care Provider [phone] Reason for Visit * Reason Onset Date Comments Request For Order(s) 12/31/2024 [facility] Order # [id number] Encounter Details Date Type Department Care Team (Late st Contact Info) Description 12/31/2024 Telephone Internal Medicine - [place] [address] [facility] [address] [place] [address] Cathy Coyne MA Request For Order(s) ([facility] Order # [id number]/) Social History Tobacco Use Types Packs/Day Years [...] Notes * Cathy Coyne MA - 01/02/2025 7:02 AM EDT Scanned into chart and faxed to [facility] [phone] * Cathy Conye MA - 12/31/2024 11:09 AM EDT [facility] Order # [id number] Please sign & documented in this encounter Plan of Treatment Upcoming Encounters Date Type Department Care Team (Late st Contact Info) Description 01/08/2025 9:30 AM EDT Clinical Support [facility] [address] [place] [phone] 01/22/2025 9:30 AM EDT Clinical Support [facility] [address] [place] [phone] 03/10/2025 11:30 AM EDT Office Visit [facility] Hematology Oncology [address] [place] [phone] Reese Christensen MD [address] [place] [address] 06/02/2025 8:15 AM EDT Office Visit Pulmonolgy - [place] [address] [phone] Ronald Schilling MD [address] [address] documented as of this encounter Goals Goal Patient Goal Type Associated Problems Recent Progress Patient-Stated? Author Decrease Wound Volume by X% by date (in notes) Care Plan Impaired Tissue On track( 025 11:14 AM EDT) No Camilla Perales, JERICA Patient and Caregiver Understand Wound Care Education Care Plan Impaired Tissue On track( 025 11:14 AM EDT) No Camilla Perales, resistor winder volume breakdown reduced by X% by week 4 Care Plan Impaired Tissue No Camilla Perales, resistor winder volume breakdown reduced by X% by week 8 Care Plan Impaired Tissue No Camilla Perales, resistor winder volume breakdown reduced by X% by week [...] documented as of this encounter Care Teams Inspector Screen Printing Relationship Specialty Start Date End Date Carlos Jerez MD [address] [place] [address] PCP - General Internal Medicine 09/12/18 documented as of this encounter
--- OUTSIDE RECORDS SUMMARY | 2025-01-06 18:15 | XMS_ITS | Encounter Summary ---
Author Organization [facility] Address [address] [place] [address] Care Team Providers Care Machine Operator General Name Role Phone Carlos Jerez MD Primary Care Provider [phone] Encounter Details Date Type Department Care Team (Late st Contact Info) Description 12/03/2024 Telephone Internal Medicine - [place] 175 [facility] [address] [place] [phone] Carlos Jerez MD 175 [facility] [address] [place], [place] [phone] Social History Tobacco Use Types Packs/Day Years Used Date Smoking Tobacco: Never Smokeless Tobacco: Never Alcohol Use Standard Drinks/Week Comments Yes 0 (1 standard drink = 0.6 oz pur e alcohol) Sex and Gender Information Value Date Recorded Sex Assigned at Not on file Legal Sex Male 8:39 PM EST Gender Identity Not on file Sexual Orientation Not on file documented as of this encounter Progress Notes * Alissa Kerr - 12/03/2024 2:51 PM EDT [facility] Checking on a script from [facility] for crutches -- told him we have not yet received. It was faxed on 11/25 and again the following week. He gave me ph# for [facility]. He says pt needs these crutches he's not able to walk and he's abigger dago and needs it. Called [facility] at [phone], they are refaxing this script now. Please advise, Ty documented in this encounter Plan of Treatment Upcoming Encounters Date Type Department Care Team (Late st Contact Info) Description 01/08/2025 9:30 AM EDT Clinical Support [facility] [address] [place] [address] 01/22/2025 9:30 AM EDT Clinical Support [facility] [address] [place] [phone] 03/10/2025 11:30 AM EDT Office Visit [facility] Hematology Oncology [address] [place] [phone] Madelin-Reese Avila MD [address] [place] [address] 06/02/2025 8:15 AM EDT Office Visit Pulmonolgy - [place] [address] [phone] Ronald Schilling MD [address] [address] documented as of this encounter Visit Diagnoses Not on filedocumented in this encounter Care Teams Machine Operator General Relationship Specialty Start Date End Date Carlos Jerez MD [address] [address] PCP - General Internal Medicine 09/12/18 documented as of this encounter
--- OUTSIDE RECORDS SUMMARY | 2025-01-06 18:15 | XMS_ITS | Encounter Summary ---
Author Organization [facility] Address [address] [place] [address] Care Team Providers Care Tumbler Machine Operator Helper Name Role Phone Carlos Jerez MD Primary Care Provider [phone] Reason for Visit * Reason Onset Date Comments Dr. Alvarado appointment needed 12/24/2024 Encounter Details Date Type Department Care Team (Late st Contact Info) Description 12/24/2024 Telephone [facility] [address] [place] [address] Khan appointment needed Social History Tobacco Use Types Packs/Day Years [...] as of this encounter Progress Notes * Fanny Rizvi LPN - 12/24/2024 11:38 AM EDT Patient made aware that [facility] ultrasound is down for awhile and we will be referring him to Dr. Alvarado's vascular office to perform ultrasounds and follow up if needed. Referral sent awaiting appointment Appt at 8am documented in this encounter Plan of Treatment Upcoming Encounters Date Type Department Care Team (Late st Contact Info) Description 01/08/2025 9:30 AM EDT Clinical Support [facility] [address] [place] [phone] 01/22/2025 9:30 AM EDT Clinical Support [facility] [address] [place] [phone] 03/10/2025 11:30 AM EDT Office Visit [facility] Hematology Oncology [address] [place] [address] Reese Christensen MD [address] [place] [address] 06/02/2025 8:15 AM EDT Office Visit Pulmonolgy - [place] [address] [phone] Ronald Schilling MD [address] [address] documented as of this encounter Goals Goal Patient Goal Type Associated Problems Recent Progress Patient-Stated? Author Decrease Wound Volume by X% by date (in notes) Care Plan Impaired Tissue On track( 025 11:14 AM EDT) Camilla Sullivan, JERICA Patient and Caregiver Understand Wound Care Education Care Plan Impaired Tissue On track( 025 11:14 AM EDT) No Camilla Perales, nuclear design engineer volume breakdown reduced by X% by week 4 Care Plan Impaired Tissue No Camilla Perales, nuclear design engineer volume breakdown reduced by X% by week 8 Care Plan Impaired Tissue No Camilla Perales, nuclear design engineer volume breakdown reduced by X% by week 12 Care Plan Impaired Tissue No Camilla Perales, RN Quit using tobacco (cigarettes, smokeless, etc) Care Plan Education needed on impact of smoking on wound No Camilla Perales, RN Reduce tobacco use (cigarettes, smokeless, etc) [...] documented as of this encounter Care Teams Tumbler Machine Operator Helper Relationship Specialty Start Date End Date Carlos Jerez MD [address] [place] [id number] PCP - General Internal Medicine 09/12/18 documented as of this encounter
--- OUTSIDE RECORDS SUMMARY | 2025-01-06 18:15 | XMS_ITS | Encounter Summary ---
Author Organization [facility] Address [address] [place] [address] Care Team Providers Care Skin Fitter Name Role Phone Carlos Jerez MD Primary Care Provider [phone] Reason for Visit * Reason Onset Date Comments Request For Order(s) 12/31/2024 [facility] Order # [id number] Encounter Details Date Type Department Care Team (Late st Contact Info) Description 12/31/2024 Telephone Internal Medicine - [place] [address] [facility] [address] [place] [address] Cathy Coyne MA Request For Order(s) ([facility] Order # [id number]/) Social History Tobacco Use Types Packs/Day Years [...] Notes * Cathy Coyne MA - 01/02/2025 7:00 AM EDT Scanned into chart and faxed to [facility] [phone] * Cathy Coyne MA - 12/31/2024 11:07 AM EDT [facility] Order # [id number] Please sign & documented in this encounter Plan of Treatment Upcoming Encounters Date Type Department Care Team (Late st Contact Info) Description 01/08/2025 9:30 AM EDT Clinical Support [facility] [address] [place] [address] 01/22/2025 9:30 AM EDT Clinical Support [facility] [address] [place] [phone] 03/10/2025 11:30 AM EDT Office Visit [facility] Hematology Oncology [address] [place] [address] Reese Christensen MD [address] [place] [address] 06/02/2025 8:15 AM EDT Office Visit Pulmonolgy - [place] [address] [phone] Ronald Schilling MD [address] [address] documented as of this encounter Goals Goal Patient Goal Type Associated Problems Recent Progress Patient-Stated? Author Decrease Wound Volume by X% by date (in notes) Care Plan Impaired Tissue On track( 025 11:14 AM EDT) No Camilla Perales, JERICA Patient and Caregiver Understand Wound Care Education Care Plan Impaired Tissue On track( 025 11:14 AM EDT) No Camilla Perales, special needs child caregiver volume breakdown reduced by X% by week 4 Care Plan Impaired Tissue No Camilla Perales, special needs child caregiver volume breakdown reduced by X% by week 8 Care Plan Impaired Tissue No Camilla Perales, special needs child caregiver volume breakdown reduced by X% by week [...] documented as of this encounter Care Teams Skin Fitter Relationship Specialty Start Date End Date Carlos Jerez MD [address] [place] [address] PCP - General Internal Medicine 09/12/18 documented as of this encounter
--- OUTSIDE RECORDS SUMMARY | 2025-01-06 18:15 | XMS_ITS | Encounter Summary ---
Author Organization [facility] Address [address] [place] [address] Care Team Providers Care Director Ambulatory Name Role Phone Carlos Jerez MD Primary Care Provider [phone] Reason for Visit * Reason Onset Date Comments Request For Order(s) 12/30/2024 [facility] Order # [id number] Encounter Details Date Type Department Care Team (Late st Contact Info) Description 12/30/2024 Telephone Internal Medicine - [place] [address] [facility] [address] [place] [address] Cathy Coyne MA Request For Order(s) ([facility] Order # [id number]/) Social History Tobacco Use Types Packs/Day Years [...] Notes * Cathy Coyne MA - 01/01/2025 9:38 AM EDT Scanned into chart and faxed to [facility] [phone] * Cathy Coyne MA - 12/30/2024 8:14 AM EDT [facility] Order # [id number] Please sign & documented in this encounter Plan of Treatment Upcoming Encounters Date Type Department Care Team (Late st Contact Info) Description 01/08/2025 9:30 AM EDT Clinical Support [facility] [address] [place] [address] 01/22/2025 9:30 AM EDT Clinical Support [facility] [address] [place] [phone] 03/10/2025 11:30 AM EDT Office Visit [facility] Hematology Oncology [address] [place] [address] Reese Christensen MD [address] [place] [address] 06/02/2025 8:15 AM EDT Office Visit Pulmonolgy - [place] [address] [phone] Ronald Schilling MD [address] [address] documented as of this encounter Goals Goal Patient Goal Type Associated Problems Recent Progress Patient-Stated? Author Decrease Wound Volume by X% by date (in notes) Care Plan Impaired Tissue On track( 025 11:14 AM EDT) No Camilla Perales, JERICA Patient and Caregiver Understand Wound Care Education Care Plan Impaired Tissue On track( 025 11:14 AM EDT) No Camilla Perales, small boat engineer volume breakdown reduced by X% by week 4 Care Plan Impaired Tissue No Camilla Perales, small boat engineer volume breakdown reduced by X% by week 8 Care Plan Impaired Tissue No Camilla Perales, small boat engineer volume breakdown reduced by X% by [...] documented as of this encounter Care Teams Director Ambulatory Relationship Specialty Start Date End Date Carlos Jerez MD [address] [place] [address] PCP - General Internal Medicine 09/12/18 documented as of this encounter
--- OUTSIDE RECORDS SUMMARY | 2025-01-06 18:15 | XMS_ITS | Encounter Summary ---
Author Organization [facility] Address [address] [place] [address] Care Team Providers Care Crate Icer Name Role Phone Carlos Jerez MD Primary Care Provider [phone] Reason for Visit * Reason Onset Date Comments Request For Order(s) 12/31/2024 [facility] Order # [id number] Encounter Details Date Type Department Care Team (Late st Contact Info) Description 12/31/2024 Telephone Internal Medicine - [place] [address] [facility] [address] [place] [address] Cathy Coyne MA Request For Order(s) ([facility] Order # [id number]/) Social History Tobacco Use Types Packs/Day Years [...] Notes * Cathy Coyne MA - 01/02/2025 7:13 AM EDT Scanned into chart and faxed to [facility] [phone] * Cathy Coyne MA - 12/31/2024 11:19 AM EDT [facility] Order # [id number] Please sign & documented in this encounter Plan of Treatment Upcoming Encounters Date Type Department Care Team (Late st Contact Info) Description 01/08/2025 9:30 AM EDT Clinical Support [facility] [address] [place] [address] 01/22/2025 9:30 AM EDT Clinical Support [facility] [address] [place] [phone] 03/10/2025 11:30 AM EDT Office Visit [facility] Hematology Oncology [address] [place] [address] Reese Christensen MD [address] [place] [address] 06/02/2025 8:15 AM EDT Office Visit Pulmonolgy - [place] [address] [phone] Ronald Schilling MD [address] [address] documented as of this encounter Goals Goal Patient Goal Type Associated Problems Recent Progress Patient-Stated? Author Decrease Wound Volume by X% by date (in notes) Care Plan Impaired Tissue On track( 025 11:14 AM EDT) No Camilla Perales, JERICA Patient and Caregiver Understand Wound Care Education Care Plan Impaired Tissue On track( 025 11:14 AM EDT) No Camilla Perales, neurology hospitalist volume breakdown reduced by X% by week 4 Care Plan Impaired Tissue No Camilla Perales, neurology hospitalist volume breakdown reduced by X% by week 8 Care Plan Impaired Tissue No Camilla Perales, neurology hospitalist volume breakdown reduced by X% by week [...] documented as of this encounter Care Teams Crate Icer Relationship Specialty Start Date End Date Carlos Jerez MD [address] [place] [address] PCP - General Internal Medicine 09/12/18 documented as of this encounter
--- OUTSIDE RECORDS SUMMARY | 2025-01-06 18:15 | XMS_ITS | Encounter Summary ---
Author Organization [facility] Address [address] [place] [address] Care Team Providers Care Putter In Name Role Phone Carlos Jerez MD Primary Care Provider [phone] Reason for Visit * Reason Comments Consult * Consultation (Routine) - Authorized Specialty Diagnoses / Procedures Referred By Contac t Referred To Contact Hematology and Oncology Diagnoses Normocytic anemia Carlos Jerez MD [address] [address] Phone: tel: fax: Reese Christensen MD [address] [place] [address] Phone: tel: fax: Referral ID Status Reason Start Date Expiration Date Visits Requested Visits Authorized [id number] Authorized Specialty Services Required 11/25/2024 11/25/2025 6 6 Encounter Details Date Type Department Care Team (Late st Contact Info) Description 01/05/2025 11:30 AM EDT Office Visit [facility] Hematology Oncology [address] [place] [phone] Reese Christensen MD [address] [place] [address] Normocytic anemia (Primary Dx); Cellulitis of left leg; Hypoalbuminemia; Sickle cell trait ([facility] V24) Social History Tobacco Use Types Packs/Day Years [...] ??F) 01/05/2025 11:39 AM EDT Respiratory Rate - - Oxygen Saturation 97% 01/05/2025 11:39 AM EDT Inhaled Oxygen Concentration - - Weight 215 kg (475 lb) 01/05/2025 11:39 AM EDT Height 177.8 cm (5' 10 ) 01/05/2025 11:39 AM EDT Body Mass Index 68.16 01/05/2025 11:39 AM EDT documented in this encounter Ordered Prescriptions Prescription Sig Dispense Quantity Refills Last Filled Start Date End Date folic acid (FOLVITE) 1 mg tablet Take 1 tablet (1 mg total) by mouth 1 (one) time each day. 90 each 3 01/05/2025 01/05/2026 ferrous sulfate 325 mg (65 mg elemental iron) tablet Take 1 tablet (325 mg total) by mouth every other day. 45 each 3 01/05/2025 01/05/2026 documented in this encounter Progress Notes * Subramony Madelin-MD Margarita - 01/05/2025 11:30 AM EDT Images from the original note were not included. Dear Dr. Jerez Thank you very much for referring this patient for consultation. HPI: This is a 49-year-old gentleman, who is referred for hematology valuation regarding diagnosis of normocytic anemia. Patient is here recommended by his . To review patient's recent history he was admitted to [facility] from 11/16-11/21/2024, with an episode of cellulitis of left leg, severe sepsis without septic shock, and asthma. He had lactic acidosis at the time of presentation. Superficial wound culture was negative. Ultrasound duplexno DVT. He had a CT of the left lower extremity that showed subcutaneous edema throughout the leg representing cellulitis without abscess or free air. He was started on antibiotic Initially Then Had Vancomycin, Antibiotic Completed on 11/21. 11/[address] of the left lower extremity showed a 2.9 cm lesion in the proximal tibial metaphysis withsclerotic margin. Further evaluation with nonemergent MRI was recommended. Patient is awaiting further imaging regarding this. Since return from hospital he had a PCP follow-up, and had lab work that showed anemia. Referral isfor evaluation of anemia and further management Patient understands regarding weight loss. He wishes to lose weight but unable to exercise. 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 He may be a candidate for Ozempic or Wegovy ROS: GENERAL: No malaise, significant weight loss or fever NECK: No lumps, goiter, pain or significant neck swelling RESPIRATORY: No cough, wheezing or shortness of breath CARDIOVASCULAR: No chest pain, leg swelling or palpitations GI: No abdominal discomfort, blood in stools or black stools MUSCULOSKELETAL: No joint pain or swelling, back pain, or muscle pain. HEMATOLOGY/LYMPHOLOGY No prolonged bleeding, easy bruisability or swollen nodes Other Systems review is non contributory PAST MEDICAL HISTORY: Active Ambulatory Problems Diagnosis Date Noted Allergic rhinitis 04/17/2016 Bilateral carpal tunnel syndrome 04/13/2015 Chronic cough 01/26/2020 Complication of stomach banding 05/01/2018 Decreased testosterone level 11/30/2016 Depression with anxiety 04/17/2016 Eczema 02/27/2017 GERD (gastroesophageal reflux disease) 05/09/2018 Gynecomastia 08/23/2020 Hyperlipidemia 07/09/2021 Multifocal pneumonia 01/26/2020 Primary hypertension 07/09/2021 Proteinuria 02/27/2017 [place] disease 09/02/2013 Seasonal allergic conjunctivitis 01/26/2020 Seasonal allergic rhinitis due to pollen 01/26/2020 Vitamin B12 deficiency 07/09/2021 Vitamin D deficiency 05/01/2018 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 Morbid obesity with BMI of 60.0-69.9, adult ([facility] V24, [facility] V28) 09/02/2020 Resolved Ambulatory Problems Diagnosis Date Noted No Resolved Ambulatory Problems Past Medical History: Diagnosis Date Asthma History of diverticulitis Lymphedema PAST SURGICAL HISTORY: Past Surgical History: Procedure Laterality Date COLONOSCOPY OTHER SURGICAL HISTORY PROCEDURE: GA LAPS GASTRIC RESTRICTIVE PROCEDURE PLACE DEVICE SOCIAL HISTORY: Social History Tobacco Use Smoking status: Never Smokeless tobacco: Never Substance Use Topics Alcohol use: Not Currently Comment: occasional socially FAMILY HISTORY: Family History Problem Relation Name Age of Onset No Known Problems Mother No Known Problems Father Diabetes Aunt Maternal MEDICATIONS: Current Outpatient Medications: albuterol HFA (PROAIR HFA ; PROVENTIL HFA ; VENTOLIN HFA) 90 mcg/actuation inhaler, INHALE 2 PUFFS INTO THE LUNGS EVERY 4 HOURS NEEDED FOR COUGH OR WHEEZING FOR UP TO 30 DAYS., Disp: 8.5 each, Rfl: 2 ammonium lactate (AmLactin) 12 % lotion, Apply twice a day on dry areas for 2 weeks, Disp: 400 g, Rfl: 3 fluticasone-salmeterol (ADVAIR DISKUS) 250-50 mcg/dose diskus inhaler, Inhale 1 puff by mouth., Disp: , Rfl: ibuprofen (ADVIL,MOTRIN) 200 mg tablet, , Disp: , Rfl: medical supply, miscellaneous (MISCELLANEOUS MEDICAL SUPPLY MISC), Spacer Device Adult Use with ProAir inhaler, Disp: , Rfl: furosemide (LASIX) 20 mg tablet, Take 1 tablet (20 mg total) by mouth 1 (one) time each day for 10 days., Disp: 10 each, Rfl: 0 Allergies Allergen Reactions Codeine-Guaifenesin Reports itching legs and feet, tingling of fingers PHYSICAL EXAM: Visit Vitals BP (!) 152/88 (BP Location: Left arm, Patient Position: Sitting, BP Cuff Size: Large adult) Comment(BP Location): LEFT FOREARM Pulse 105 Temp 37 ??C (98.6 ??F) (Temporal) Ht 1.778 m (70 ) Wt 215 kg (475 lb) SpO2 97% BMI 68.16 kg/m?? Smoking Status Never BSA 3.01 m?? APPEARANCE: Alert and in no acute distress Pain and discomfort left leg EYES: PERRL, conjunctiva mild pallor and sclera are Normal without icterus ORAL CAVITY: No erythema or exudates NECK: Neck supple, no adenopathy, HEART: RRR, regular tachycardia with normal S1 and S2, no murmurs, no gallops, no JVD appreciated LUNG: clear to auscultation bilaterally Percussion note normal LYMPH NODES: No palpable superficial adenopathy ABDOMEN: Obese, limited findings bowel sounds normoactive, no bruits, soft, non- tender, without organomegaly or palpable masses EXTREMITIES: Extremities warm and well perfused without clubbing, cyanosis, Lymphedema left leg recently recovering from cellulitis NEURO: Oriented X 3, no focal weakness; sensation is normal LABS: Lab Results Component Value Date WBC 6.3 01/05/2025 HGB 12.3 (L) 01/05/2025 HCT 38.3 (L) 01/05/2025 MCV 82.9 01/05/2025 PLT 400 01/05/2025 Lab Results Component Value Date WBC 8.3 12/24/2024 HGB 12.9 (L) 12/24/2024 HCT 39.0 (L) 12/24/2024 MCV 80.9 12/24/2024 PLT 327 12/24/2024 Lab Results Component Value Date NA 140 12/24/2024 K 4.2 12/24/2024 CO2 30 12/24/2024 CL 104 12/24/2024 BUN 7 12/24/2024 Testing: Review of Lab results , interpreted Lab Results Component Value Date WBC 8.3 12/24/2024 HGB 12.9 (L) 12/24/2024 HCT 39.0 (L) 12/24/2024 MCV 80.9 12/24/2024 PLT 327 12/24/2024 Lab Results Component Value Date NA 140 12/24/2024 K 4.2 12/24/2024 CL 104 12/24/2024 CO2 30 12/24/2024 GLUCOSE 87 12/24/2024 BUN 7 12/24/2024 CREATININE 0.88 12/24/2024 CALCIUM 8.7 12/24/2024 PROT 6.9 12/24/2024 ALBUMIN 2.4 (L) 12/24/2024 BILITOT 0.7 12/24/2024 AST 14 12/24/2024 ALT 11 12/24/2024 ALKPHOS 62 12/24/2024 EGFR 106 12/24/2024 Review of Imaging, interpreted X-RAY EXAM OF WRIST, COMPLETE LEFT WRIST VIEWS: 3 HISTORY: Left wrist pain. No injury. FINDINGS: There is no acute fracture, malalignment, joint effusion, soft tissue abnormality, or radiopaque foreign body. The carpal bones are normally aligned. IMPRESSION: IMPRESSION: Normal study. Review of External Documentation Tests ordered - Orders Placed This Encounter Procedures CBC and differential Standing Status: Future Standing Expiration Date: 01/05/2026 Iron and TIBC Standing Status: Future Standing Expiration Date: 01/05/2026 Ferritin Standing Status: Future Standing Expiration Date: 01/05/2026 Lactate dehydrogenase Standing Status: Future Standing Expiration Date: 01/05/2026 Haptoglobin Standing Status: Future Standing Expiration Date: 01/05/2026 Protein electrophoresis, serum Please do this test [id number] , do not change thank you Standing Status: Future Standing Expiration Date: 01/05/2026 Vitamin B12 and folate Standing Status: Future Standing Expiration Date: 01/05/2026 Hemoglobin electrophoresis Standing Status: Future Standing Expiration Date: 01/05/2026 ASSESSMENT 1. Normocytic anemia 2. Cellulitis of left leg 3. Hypoalbuminemia 4. Sickle cell trait ([facility] V24) PLAN: 49-year-old gentleman, previously employed as a social studies teacher, currently recovering from an episodeof severe cellulitis of the left leg, presenting with anemia. He does have prior history of sickle cell trait and hemoglobin was greater than 14 in 2021. Likely multifactorial anemia related to reduced protein intake, as noted with hypoalbuminemia, as well as anemia of inflammatory disease due to recent cellulitis in the background of sickle cell trait. He may have other nutritional deficiencies.He does not report any significant bleeding, however if he has significant iron deficiency, would be appropriate to have a GI evaluation, and endoscopy. He had questions regarding continuation of dietary changes for weight loss. I encouraged him to continue on protein intake. He may be a candidate for the newer injectable GLP agonist that can aid in his weight loss. Defer to PCP regarding this. Lab work today, I will contact him with results and return to clinic in 2 months for further discussion. Patient and are in agreement with this plan. Update-labs reviewed-iron saturation is low, will send in a prescription for iron every other day, folate level is low I will send in a prescription of folic acid 1 mg daily. Subramony Subramonia-Margarita, MD Cc: Carlos Jerez MD documented in this encounter Plan of Treatment Upcoming Encounters Date Type Department Care Team (Late st Contact Info) Description 01/08/2025 9:30 AM EDT Clinical Support [facility] [address] [place] [phone] 01/22/2025 9:30 AM EDT Clinical Support [facility] [address] [place] [phone] 03/10/2025 11:30 AM EDT Office Visit [facility] Hematology Oncology [address] [place] [address] Reese Christensen MD [address] [place] [address] 06/02/2025 8:15 AM EDT [facility] [address] [phone] Ronald Schilling MD [address] [address] Pending Results Name Type Priority Associated Diagnoses Date /Time Protein electrophoresis, serum Lab Routine Normocytic anemia 01/05/2025 12:22 PM EDT Hemoglobin electrophoresis Lab Routine Normocytic anemia 01/05/2025 12:22 PM EDT Scheduled Orders Name Type Priority Associated Diagnoses Orde r Schedule Protein electrophoresis, serum Lab Routine Normocytic anemia 1 Occurrences starting 01/05/2025 until 01/05/2026 Hemoglobin electrophoresis Lab Routine Normocytic anemia Expected: 01/05/2025, Expires: 01/05/2026 documented as of this encounter Goals Goal [...] Perales RN documented as of this encounter Results * Vitamin B12 and folate (01/05/2025 12:22 PM EDT) Pathologist [facility] Vitamin B-12 517 250 - 900 pcg/mL LAB CHEMISTRY METHOD 01/05/2025 2:39 PM EDT [facility] Folate 3.8 2.8 - 17.0 ng/ml LAB CHEMISTRY METHOD 01/05/2025 2:39 PM EDT [facility] Blood Venous blood specimen / Unknown Venipuncture / Unknown 01/05/2025 12:22 PM EDT 01/05/2025 1:01 PM EDT us Reese Christensen MD LAB BLOOD ORDERABLE S Final Result [facility] [address] [place] [address], * (ABNORMAL) Haptoglobin (01/05/2025 12:22 PM EDT) Pathologist [facility] Haptoglobin 317(H) 16 - 200 mg/dL LAB CHEMISTRY METHOD 01/05/2025 2:15 PM EDT [facility] Blood Venous blood specimen / Unknown Venipuncture / Unknown 01/05/2025 12:22 PM EDT 01/05/2025 1:01 PM EDT us Reese Christensen MD LAB BLOOD ORDERABLE S Final Result Performing Organization Address City/[facility]/ZIP Co de Phone Number [facility] [address] [place] [address], [place] [phone] * Lactate dehydrogenase (01/05/2025 12:22 PM EDT) LDH 209 120 - 246 unit/L LAB CHEMISTRY METHOD 01/05/2025 2:15 PM EDT [facility] Blood Venous blood specimen / Unknown Venipuncture / Unknown 01/05/2025 12:22 PM EDT 01/05/2025 1:01 PM EDT us Reese Christensen MD LAB BLOOD ORDERABLE S Final Result Performing Organization Address [facility]/ZIP Co de Phone Number [facility] [address] [place] [address], [place] [phone] * Ferritin (01/05/2025 12:22 PM EDT) Ferritin 145 26 - 388 ng/mL LAB CHEMISTRY METHOD 01/05/2025 2:39 PM EDT [facility] Blood Venous blood specimen / Unknown Venipuncture / Unknown 01/05/2025 12:22 PM EDT 01/05/2025 1:01 PM EDT us Reese Christensen MD LAB BLOOD ORDERABLE S Final Result Performing Organization Address City/[facility]/ZIP Co de Phone Number [facility] [address] [place] [address], [place] [phone] * (ABNORMAL) Iron and TIBC (01/05/2025 12:22 PM EDT) Iron 52 50 - 160 mcg/dL LAB CHEMISTRY METHOD 01/05/2025 2:39 PM EDT [facility] TIBC 303 250 - 450 mcg/dL LAB CHEMISTRY METHOD 01/05/2025 2:39 PM EDT [facility] Iron Saturation 17(L) 20 - 50 % LAB CHEMISTRY METHOD 01/05/2025 2:39 PM EDT [facility] Blood Venous blood specimen / Unknown Venipuncture / Unknown 01/05/2025 12:22 PM EDT 01/05/2025 1:01 PM EDT Reese Christensen MD LAB BLOOD ORDERABLE S Final Result [facility] [address] [place] [address], documented in this encounter Visit Diagnoses Diagnosis Normocytic anemia- Primary Unspecified anemia Cellulitis of left leg Hypoalbuminemia Other disorders of plasma protein metabolism Sickle cell trait ([facility] V24) Sickle-cell trait documented in this encounter Discontinued Medications Medication Sig Discontinue Reason Start Date End Da te fluticasone propion-salmeteroL (ADVAIR HFA) 115-21 mcg/actuation inhaler Inhale 2 puffs by mouth 2 (two) times a day. 12/29/2024 01/05/2025 documented as of this encounter Orders Outpatient Referral Count Last Ordered Date Fir st Ordered Date AMB REFERRAL TO HEMATOLOGY / ONCOLOGY 1 documented in this encounter Additional Health Concerns Active Problems Noted Date Diagnosed Date Impaired Tissue 12/19/2024 Education needed on impact of smoking on wound 0 12/19/2024 Education needed related to ulceration/compromised skin integrity. 12/19/2024 documented as of this encounter Care Teams Putter In Relationship Specialty Start Date End Date Carlos Jerez MD 175 [facility] [address] [place] [address] PCP - General Internal Medicine 09/12/18 documented as of this encounter
--- OUTSIDE RECORDS SUMMARY | 2025-01-06 18:15 | XMS_ITS | Encounter Summary ---
Author Organization [facility] Address [address] [place] [address] Care Team Providers Care Allergist Name Role Phone Carlos Jerez MD Primary Care Provider [phone] Reason for Visit * Reason Onset Date Comments Request For Order(s) 01/05/2025 [facility] Order # [id number] Encounter Details Date Type Department Care Team (Late st Contact Info) Description 01/05/2025 Telephone Internal Medicine - [place] [address] [place] [address] Cathy Coyne MA Request For Order(s) ([facility] Order # [id number]/) Social History Tobacco Use Types Packs/Day Years [...] Notes * Cathy Coyne MA - 01/05/2025 8:49 AM EDT [facility] Order # [id number] Please sign & documented in this encounter Plan of Treatment Upcoming Encounters Date Type Department Care Team (Late st Contact Info) Description 01/08/2025 9:30 AM EDT Clinical Support [facility] [address] [place] [phone] 01/22/2025 9:30 AM EDT Clinical Support [facility] [address] [place] [address] 03/10/2025 11:30 AM EDT Office Visit [facility] Hematology Oncology [address] [place] [address] Reese Christensen MD [address] [place] [address] 06/02/2025 8:15 AM EDT Office Visit [facility] [address] [phone] Ronald Schilling MD [address] [address] documented as of this encounter Goals Goal [...] documented as of this encounter Care Teams Allergist Relationship Specialty Start Date End Date Carlos Jerez MD [address] [place] [address] PCP - General Internal Medicine 09/12/18 documented as of this encounter
--- OUTSIDE RECORDS SUMMARY | 2025-01-06 18:15 | XMS_ITS | Encounter Summary ---
Author Organization [facility] Address [address] [place] [address] Care Team Providers Care Psychologist Private Practice Name Role Phone Carlos Jerez MD Primary Care Provider [phone] Reason for Visit * Reason Onset Date Comments Request For Order(s) 01/05/2025 [facility] Order # [id number] Encounter Details Date Type Department Care Team (Late st Contact Info) Description 01/05/2025 Telephone Internal Medicine - [place] [address] [place] [address] Cathy Coyne [place] Request For Order(s) ([facility] Order # [id number]/) Social History Tobacco Use Types Packs/Day Years [...] Notes * Cathy Coyne MA - 01/05/2025 1:57 PM EDT [facility] Order # [id number] Please sign & documented in this encounter Plan of Treatment Upcoming Encounters Date Type Department Care Team (Late st Contact Info) Description 01/08/2025 9:30 AM EDT Clinical Support [facility] [address] [place] [phone] 01/22/2025 9:30 AM EDT Clinical Support [facility] [address] [place] [address] 03/10/2025 11:30 AM EDT Office Visit [facility] Hematology Oncology [address] [place] [address] Reese Christensen MD [address] [place] [address] 06/02/2025 8:15 AM EDT Office Visit [facility] [address] [phone] Ronald Schilling MD [address] [address] documented as of this encounter Goals Goal [...] documented as of this encounter Care Teams Psychologist Private Practice Relationship Specialty Start Date End Date Carlos Jerez MD [address] [place] [address] PCP - General Internal Medicine 09/12/18 documented as of this encounter
== END 2025-01-06 16:08 | disposition home or self-care (01) ==
LOC: HO.HKAS 14:59
PROVIDERS: PCP Internal Medicine; Referring Provider Internal Medicine; Visit Provider Internal Medicine Nephrology
DX: R80.8 Other proteinuria (principal); E88.09 Other disorders of plasma-protein metabolism, not elsewhere classified
CPT/HCPCS: 99204

== ENCOUNTER 2025-01-06 14:59 | Outpatient (REF) | payer BC, SELFPAY ==
[2025-01-06 18:45] LABS: Alanine Aminotransferase < 6 U/L (0-40); Albumin Level 3.4 g/dL (3.5-5.0); Anion Gap 12 (12-20); Aspartate Amino Transferase 23 U/L (5-37); Blood Urea Nitrogen 9 mg/dL (9-16); Carbon Dioxide 27 mmol/L (22-29); Chloride 105 mmol/L (96-108); Estimated Glomerular Filt Rate > 60; Potassium 3.7 mmol/L (3.3-5.1); Sodium 140 mmol/L (135-145)
--- OUTSIDE RECORDS SUMMARY | 2025-01-06 18:49 | XMS_ITS ---
Care Plan Created on: January 06, 2025 Cassie Yoon : 1975 Sex: Male Author Organization 175 [facility] Address [address] [place] [address] Phone Care Team Providers Care Shoeshiner Name Role Phone Carlos Jerez MD Primary Care Provider [phone] Active Problems Problem Noted Date Diagnosed Date Hyperlipidemia 07/09/2021 Primary hypertension 07/09/2021 Vitamin B12 deficiency 07/09/2021 Morbid obesity with BMI of 6 0.0-69.9, adult ([facility] V24, [facility] V28) 09/02/2020 Gynecomastia 08/23/2020 Chronic cough [...]
--- OUTSIDE RECORDS SUMMARY | 2025-01-06 18:49 | XMS_ITS | Encounter Summary ---
Author Organization [facility] Address [address] [place] [address] Care Team Providers Care Infrastructure Consultant Name Role Phone Carlos Jerez MD Primary Care Provider [phone] Encounter Details Date Type Department Care Team (Late st Contact Info) Description 12/03/2024 Telephone Internal Medicine - [place] [address] [facility] [address] [place] [phone] Carlos Jerez MD 175 [facility] [address] [place], [place] [phone] Social History Tobacco Use Types Packs/Day Years [...] 12/03/2024 2:51 PM EDT [facility] Checking on a script from [facility] for crutches -- told him we have not yet received. It was faxed on 11/25 and again the following week. He gave me ph# for [facility]. He says pt needs these crutches he's not able to walk and he's abigger dago and needs it. Called [facility] at [phone], they are refaxing this script now. Please advise, Ty documented in this encounter Plan of Treatment Upcoming Encounters Date Type Department Care Team (Late st Contact Info) Description 01/08/2025 9:30 AM EDT Clinical Support [facility] [address] [place] [address] 01/22/2025 9:30 AM EDT Clinical Support [facility] [address] [place] [phone] 03/10/2025 11:30 AM EDT Office Visit [facility] Hematology Oncology [address] [place] [address] Madelin-Reese Avila MD [address] [place] [address] 06/02/2025 8:15 AM EDT Office Visit Pulmonolgy - [place] [address] [phone] Ronald Scihlling MD [address] [address] documented as of this encounter Visit Diagnoses Not on filedocumented in this encounter Care Teams Infrastructure Consultant Relationship Specialty Start Date End Date Carlos Jerez MD [address] [address] PCP - General Internal Medicine 09/12/18 documented as of this encounter
--- OUTSIDE RECORDS SUMMARY | 2025-01-06 18:49 | XMS_ITS | Encounter Summary ---
Author Organization [facility] Address [address] [place] [address] Care Team Providers Care Sample Clerk Name Role Phone Carlos Jerez MD Primary Care Provider [phone] Reason for Visit * Reason Onset Date Comments Request For Order(s) 01/05/2025 [facility] Order # [id number] Encounter Details Date Type Department Care Team (Late st Contact Info) Description 01/05/2025 Telephone Internal Medicine - [place] [address] [place] [address] Cathy Coyne MA Request For Order(s) ([facility] Order # [id number]/) Social History Tobacco Use Types Packs/Day Years [...] Coyne MA - 01/05/2025 8:49 AM EDT [facility] Order # [id number] Please sign & documented in this encounter Plan of Treatment Upcoming Encounters Date Type Department Care Team (Late st Contact Info) Description 01/08/2025 9:30 AM EDT Clinical Support [facility] [address] [place] [phone] 01/22/2025 9:30 AM EDT Clinical Support [facility] [address] [place] [address] 03/10/2025 11:30 AM EDT Office Visit [facility] Hematology Oncology [address] [place] [address] Reese Christensen MD [address] [place] [address] 06/02/2025 8:15 AM EDT Office Visit Pulmonolgy [facility] [address] [phone] Ronald Schilling MD [address] [address] documented as of this encounter Goals Goal [...] documented as of this encounter Care Teams Sample Clerk Relationship Specialty Start Date End Date Carlos Jerez MD [address] [place] [address] PCP - General Internal Medicine 09/12/18 documented as of this encounter
--- OUTSIDE RECORDS SUMMARY | 2025-01-06 18:50 | XMS_ITS | Encounter Summary ---
Author Organization [employer] Address [address] [place] [address] Care Team Providers Care Injection Molding Machine Tender Name Role Phone Carlos Jerez MD Primary Care Provider [phone] Reason for Visit * Reason Comments Wound Care Encounter Details Date Type Department Care Team (Latest Contact Info) Description 01/01/2025 10:30 AM EDT Office Visit [facility] Care Center [address] [place] [phone] Ever Torrez PA [address] [place] [address] Venous insufficiency of left lower extremity (Primary [...] any questions or concerns, please contact the [facility] at . It was noted [...] to follow up on your referral Vascular: [facility] 01/14/25 8 am Correction: Home care: [facility] Additional Orders: Increase protein in your diet [...] please remove / unwrap compression and notify [facility] at . ) Coban 2 wrap to left lower extremity, Elevate legs above heart level as much as possible, Avoid standing for extended periods of time. Wear your own compression on your right leg Offloading: Gel wheelchair cushion prescription being sent to [facility] Negative Pressure Wound Therapy: (If wound vac [...] [facility] at [address] [address] Office Visit Visit Date: 01/01/2025 Patient Name: [...] nursing note reviewed. Exam conducted with a airplane refueler present. Constitutional: Appearance: Normal appearance. HENT: Head: [...] AM Wound Image Wound Bed Tissue Assessment Redkey;Sloughing Granulation;Sloughing Howard-Wound Assessment Intact Scarred Wound Length [...] AM Wound Image Wound Bed Tissue Assessment Redkey;Sloughing Granulation;Sloughing Howard-Wound Assessment Intact Scarred Wound Length [...] (Lymphedema ) Left;Upper;Medial Leg Routine Active HUSSEIN Dbuois Inactive Orders Date Order Priority Status Authorizing [...] Infection and pain Alternatives discussed: Delayed treatment [place] protocol: Procedure explained and questions answered to [...] Risks discussed: Bleeding Alternatives discussed: No treatment [place] protocol: Procedure explained and questions answered to [...] Risks discussed: Bleeding Alternatives discussed: No treatment [place] protocol: Procedure explained and questions answered to [...] any questions or concerns, please contact the [facility] at . It was noted [...] to follow up on your referral Vascular: [facility] 01/14/25 8 am Correction: Home care: [facility] Additional Orders: Increase protein in your diet [...] please remove / unwrap compression and notify [facility] at . ) Coban 2 wrap to left lower extremity, Elevate legs above heart level as much as possible, Avoid standing for extended periods of time. Wear your own compression on your right leg Offloading: Gel wheelchair cushion prescription being sent to [facility] Negative Pressure Wound Therapy: (If wound vac [...] Patient directed to check out at front desk lead and collect visit summary with wound care [...] 01/08/2025 9:30 AM EDT Clinical Support [facility] [address] [place] [phone] 01/22/2025 9:30 AM EDT Clinical Support [facility] [address] [place] [phone] 03/10/2025 11:30 AM EDT Office Visit [facility] Hematology Oncology [address] [place] [address] Reese Christensen MD [address] [place] [address] 06/02/2025 8:15 AM EDT [facility] [address] [phone] Ronald Schilling MD [address] [address] documented as of this encounter Goals Goal Patient Goal Type Associated Problems Recent Progress Patient-Stated? Author Decrease Wound Volume by X% by date (in notes) Care Plan Impaired Tissue On track( 025 11:14 AM EDT) No Camilla Perales RN Patient and Caregiver Understand Wound Care Education Care Plan Impaired Tissue On track( 025 11:14 AM EDT) No Camilla Perales, rat breeder volume breakdown reduced by X% by week 4 Care Plan Impaired Tissue No Camilla Perales, rat breeder volume breakdown reduced by X% by week 8 Care Plan Impaired Tissue No Camilla Perales rat breeder volume breakdown reduced by X% by week [...] ?Risks discussed: ??Bleeding ??Alternatives discussed: ??No treatment [place] protocol: ??Procedure explained and questions answered to [...] ?Risks discussed: ??Bleeding ??Alternatives discussed: ??No treatment [place] protocol: ??Procedure explained and questions answered to [...] ??Infection and pain ??Alternatives discussed: ??Delayed treatment [place] protocol: ??Procedure explained and questions answered to [...] documented as of this encounter Care Teams Injection Molding Machine Tender Relationship Specialty Start Date End Date Carlos Jerez MD [address] [address] PCP - General Internal Medicine 09/12/18 documented as of this encounter
--- OUTSIDE RECORDS SUMMARY | 2025-01-06 18:50 | XMS_ITS | Encounter Summary ---
Author Organization [facility] Address [address] [place] [address] Care Team Providers Care Firmware Test Engineer Name Role Phone Carlos Jerez MD Primary Care Provider [phone] Reason for Visit * Reason Onset Date Comments Request For Order(s) 12/31/2024 [facility] Order # [id number] Encounter Details Date Type Department Care Team (Late st Contact Info) Description 12/31/2024 Telephone Internal Medicine - [place] [address] [place] [address] Cathy Coyne MA Request For Order(s) ([facility] Order # [id number]/) Social History Tobacco Use Types Packs/Day Years [...] EDT Scanned into chart and faxed to [facility] [phone] * Cathy Coyne MA - 12/31/2024 11:09 AM EDT [facility] Order # [id number] Please sign & documented in this encounter Plan of Treatment Upcoming Encounters Date Type Department Care Team (Late st Contact Info) Description 01/08/2025 9:30 AM EDT Clinical Support [facility] [address] [place] [phone] 01/22/2025 9:30 AM EDT Clinical Support [facility] [address] [place] [phone] 03/10/2025 11:30 AM EDT Office Visit [facility] Hematology Oncology [address] [place] [phone] Reese Christensen MD [address] [place] [address] 06/02/2025 8:15 AM EDT Office Visit Pulmonolgy - [place] [address] [phone] Ronald Schilling MD [address] [address] documented as of this encounter Goals Goal Patient Goal Type Associated Problems Recent Progress Patient-Stated? Author Decrease Wound Volume by X% by date (in notes) Care Plan Impaired Tissue On track( 025 11:14 AM EDT) No Camilla Perales, JERICA Patient and Caregiver Understand Wound Care Education Care Plan Impaired Tissue On track( 025 11:14 AM EDT) No Camilla Perales, homemaker companion volume breakdown reduced by X% by week 4 Care Plan Impaired Tissue No Camilla Perales, homemaker companion volume breakdown reduced by X% by week 8 Care Plan Impaired Tissue No Camilla Perales, homemaker companion volume breakdown reduced by X% by week [...] documented as of this encounter Care Teams Firmware Test Engineer Relationship Specialty Start Date End Date Carlos Jerez MD [address] [place] [address] PCP - General Internal Medicine 09/12/18 documented as of this encounter
--- OUTSIDE RECORDS SUMMARY | 2025-01-06 18:50 | XMS_ITS | Encounter Summary ---
Author Organization Address [address] [place] [address] Care Team Providers Care Hat And Cap Opener Name Role Phone Carlos Jerez MD Primary Care Provider [phone] Reason for Visit * Reason Onset Date Comments Request For Order(s) 01/01/2025 [facility] Cert 11/22/24-01/20/25 Plan Of Care Encounter Details Date Type Department Care Team (Late st Contact Info) Description 01/01/2025 Telephone Internal Medicine - [place] [address] [facility] [address] [place] [address] Cathy Coyne MA Request For Order(s) ([facility] Home Health Cert 11/22/24-01/20/25 Plan Of Care [...] Coyne MA - 01/01/2025 2:14 PM EDT [facility] Cert 11/22/24-01/20/25 Plan Of Care Please sign & documented in this encounter Plan of Treatment Upcoming Encounters Date Type Department Care Team (Late st Contact Info) Description 01/08/2025 9:30 AM EDT Clinical Support [facility] Care Center [address] [place] [address] 01/22/2025 9:30 AM EDT Clinical Support [facility] [address] [place] [phone] 03/10/2025 11:30 AM EDT Office Visit [facility] Hematology Oncology [address] [place] [address] Reese Christensen MD [address] [place] [address] 06/02/2025 8:15 AM EDT Office Visit Pulmonolgy - [place] [address] [address] Ronald Schilling MD [address] [address] documented as of this encounter Goals Goal Patient Goal Type Associated Problems Recent Progress Patient-Stated? Author Decrease Wound Volume by X% by date (in notes) Care Plan Impaired Tissue On track( 025 11:14 AM EDT) No Camilla Perales RN Patient and Caregiver Understand Wound Care Education Care Plan Impaired Tissue On track( 025 11:14 AM EDT) No Camilla Perales, enamel pulverizer volume breakdown reduced by X% by week 4 Care Plan Impaired Tissue No Camilla Perales, enamel pulverizer volume breakdown reduced by X% by week 8 Care Plan Impaired Tissue No Camilla Perales, enamel pulverizer volume breakdown reduced by X% by week [...] documented as of this encounter Care Teams Hat And Cap Opener Relationship Specialty Start Date End Date Carlos Jerez MD [address] [place] [address] PCP - General Internal Medicine 09/12/18 documented as of this encounter
--- OUTSIDE RECORDS SUMMARY | 2025-01-06 18:50 | XMS_ITS | Encounter Summary ---
Author Organization [facility] Address [address] [place] [address] Care Team Providers Care Layer Up Name Role Phone Carlos Jerez MD Primary Care Provider [phone] Reason for Visit * Reason Onset Date Comments Request For Order(s) 01/05/2025 [facility] Order # [id number] Encounter Details Date Type Department Care Team (Late st Contact Info) Description 01/05/2025 Telephone Internal Medicine - [place] [address] [place] [address] Cathy Coyne MA Request For Order(s) ([facility] Order # [id number]/) Social History Tobacco Use Types Packs/Day Years [...] Coyne MA - 01/05/2025 8:34 AM EDT [facility] Order # [id number] Please sign & documented in this encounter Plan of Treatment Upcoming Encounters Date Type Department Care Team (Late st Contact Info) Description 01/08/2025 9:30 AM EDT Clinical Support [facility] W[facility] Care Center [address] [place] [phone] 01/22/2025 9:30 AM EDT Clinical Support [facility] W[facility] Care Center [address] [place] [address] 03/10/2025 11:30 AM EDT Office Visit [facility] Hematology Oncology [address] [place] [address] Reese Christensen MD [address] [place] [address] 06/02/2025 8:15 AM EDT Office Visit Pulmonolgy [facility] [address] [phone] Ronald Schilling MD [address] [address] documented as of this encounter Goals Goal Patient Goal Type Associated Problems Recent Progress Patient-Stated? Author Decrease Wound Volume by X% by date (in notes) Care Plan Impaired Tissue On track( 11:14 AM EDT) No Camilla Peralse RN Patient and Caregiver Understand Wound Care [...] documented as of this encounter Care Teams Layer Up Relationship Specialty Start Date End Date Carlos Jerez MD [address] [place] [address] PCP - General Internal Medicine 09/12/18 documented as of this encounter
--- OUTSIDE RECORDS SUMMARY | 2025-01-06 18:50 | XMS_ITS | Encounter Summary ---
Author Organization [facility] Address [address] [place] [address] Care Team Providers Care Logging Specialist Name Role Phone Carlos Jerez MD Primary Care Provider [phone] Reason for Visit * Reason Onset Date Comments Request For Order(s) 12/30/2024 [facility] Order # [id number] Encounter Details Date Type Department Care Team (Late st Contact Info) Description 12/30/2024 Telephone Internal Medicine - [place] [address] [facility] [place] [address] Cathy Coyne MA Request For Order(s) ([facility] Order # [id number]/) Social History Tobacco Use Types Packs/Day Years [...] EDT Scanned into chart and faxed to [facility] [phone] * Cathy Coyne MA - 12/30/2024 8:[address] [facility] Order # [id number] Please sign & documented in this encounter Plan of Treatment Upcoming Encounters Date Type Department Care Team (Late st Contact Info) Description 01/08/2025 9:30 AM EDT Clinical Support [facility] Wound Care Center [address] [place] [address] 01/22/2025 9:30 AM EDT Clinical Support [facility] W[facility] Center [address] [place] [phone] 03/10/2025 11:30 AM EDT Office Visit [facility] Hematology Oncology [address] [place] [address] Reese Christensen MD [address] [place] [address] 06/02/2025 8:15 AM EDT Office Visit Pulmonolgy - [place] [address] [phone] Ronald Schilling MD [address] [address] documented as of this encounter Goals Goal Patient Goal Type Associated Problems Recent Progress Patient-Stated? Author Decrease Wound Volume by X% by date (in notes) Care Plan Impaired Tissue On track( 025 11:14 AM EDT) No Camilla Perales, JERICA Patient and Caregiver Understand Wound Care Education Care Plan Impaired Tissue On track( 025 11:14 AM EDT) No Camilla Perales, nuclear worker technician volume breakdown reduced by X% by week 4 Care Plan Impaired Tissue No Camilla Perales, nuclear worker technician volume breakdown reduced by X% by week 8 Care Plan Impaired Tissue No Camilla Perales, nuclear worker technician volume breakdown reduced by X% by week [...] documented as of this encounter Care Teams Logging Specialist Relationship Specialty Start Date End Date [place] Jreez MD [address] [place] [address] PCP - General Internal Medicine 09/12/18 documented as of this encounter
--- OUTSIDE RECORDS SUMMARY | 2025-01-06 18:50 | XMS_ITS | Encounter Summary ---
Author Organization [facility] Address [address] [place] [address] Care Team Providers Care Funeral Arrangement Director Name Role Phone Carlos Jerez MD Primary Care Provider [phone] Reason for Visit * Reason Onset Date Comments Dr. Alvarado appointment needed 12/24/2024 Encounter Details Date Type Department Care Team (Late st Contact Info) Description 12/24/2024 Telephone [facility] Care Center [address] [place] [address] Khan [...] 11:38 AM EDT Patient made aware that [facility] ultrasound is down for awhile and we will be referring him to Dr. Alvarado's vascular office to perform ultrasounds and follow up if needed. Referral sent awaiting appointment Appt at 8am documented in this encounter Plan of Treatment Upcoming Encounters Date Type Department Care Team (Late st Contact Info) Description 01/08/2025 9:30 AM EDT Clinical Support [facility] [address] [place] [phone] 01/22/2025 9:30 AM EDT Clinical Support [facility] [address] [place] [phone] 03/10/2025 11:30 AM EDT Office Visit [facility] Hematology Oncology [address] [place] [address] Reese Christensen MD [address] [place] [address] 06/02/2025 8:15 AM EDT Office Visit Pulmonolgy - [place] [address] [phone] Ronald Schilling MD [address] [address] documented as of this encounter Goals Goal Patient Goal Type Associated Problems Recent Progress Patient-Stated? Author Decrease Wound Volume by X% by date (in notes) Care Plan Impaired Tissue On track( 025 11:14 AM EDT) Camilla [place], JERICA Patient and Caregiver Understand Wound Care Education Care Plan Impaired Tissue On track( 025 11:14 AM EDT) No Camilla Perales, shade classifier volume breakdown reduced by X% by week 4 Care Plan Impaired Tissue No Camilla Perales, shade classifier volume breakdown reduced by X% by week 8 Care Plan Impaired Tissue No Camilla Perales, shade classifier volume breakdown reduced by X% by week [...] documented as of this encounter Care Teams Funeral Arrangement Director Relationship Specialty Start Date End Date [place] Jerez MD [address] [place] [address] PCP - General Internal Medicine 09/12/18 documented as of this encounter
--- OUTSIDE RECORDS SUMMARY | 2025-01-06 18:50 | XMS_ITS | Clinical Summary ---
Author Organization 175 [facility] Address [address] [place] [address] Phone Care Team Providers Care Furniture Upholstery Mechanic Name Role Phone Carlos Jerez MD Primary Care Provider [phone] Allergies Active Allergy Reactions Criticality Noted Date [...] obesity with BMI of 6 0.0-69.9, adult ([facility] V24, [facility] V28) 09/02/2020 Gynecomastia 08/23/2020 Chronic cough 01/26/2020 Multifocal pneumonia 01/26/2020 Seasonal allergic conjunctivitis 01/26/2020 Seasonal allergic rhinitis due to pollen 020 GERD (gastroesophageal reflux disease) 8 Complication of stomach banding 05/01/2018 Vitamin D deficiency 05/01/2018 Eczema 02/27/2017 Proteinuria 02/27/2017 Decreased testosterone level 11/30/2016 Allergic rhinitis 04/17/2016 Depression with anxiety 04/17/2016 Bilateral carpal tunnel syndrome 04/13/2015 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 [place] disease 09/02/2013 Encounters Date Type Department Care Team Description 01/05/2025 11:30 AM EDT Office Visit [facility] Hematology Oncology [address] [place] [address] Reese Christensen MD Normocytic anemia (Primary Dx); Cellulitis of left leg; Hypoalbuminemia; Sickle cell trait ([facility] V24) 01/05/2025 Telephone Internal Medicine - [facility] [address] [address] Cathy Coyne MA Request For Order(s) ([facility] Order # [id number]/) 01/05/[address] [facility] [address] [phone] Cathy Coyne [place] Request For Order(s) ([facility] Order # [id number]/) 01/05/[address] [facility] [address] [phone] Cathy Coyne [place] Request For Order(s) ([facility] Order # [id number]/) 01/01/2025 10:30 AM EDT Office Visit [facility] [address] [place] [address] Ever Torrez PA Venous insufficiency of left lower extremity (Primary Dx); Non-pressure chronic ulcer of left lower leg with fat layer exposed ([facility] V24, [facility] V28); Non-pressure chronic ulcer of left thigh with fat layer exposed ([facility] V24, [facility] V28); Pressure injury of left buttock, stage 3 ([facility] V24, CMS/HCC V28); Pressure injury of right buttock, stage 3 ([facility] V24, [facility] V28) 01/01/[address] [facility] [address] [phone] Cathy Coyne [place] Request For Order(s) ([facility] Cert 11/22/24-01/20/25 Plan Of Care /) 12/31/2024 [facility] [address] [address] Cathy Coyne [place] Request For Order(s) ([facility] Order # [id number]/) 12/31/2024 Telephone Internal [facility] [address] [phone] Cathy Coyne [place] Request For Order(s) ([facility] Order # [id number]/) 12/31/2024 Telephone Internal [address] [phone] Cathy Coyne [place] Request For Order(s) ([facility] Order # [id number]/) 12/31/2024 [facility] [address] [address] Cathy Coyne [place] Request For Order(s) ([facility] Order # [id number]/) 12/31/2024 [facility] [address] [phone] Cathy Coyne [place] Request For Order(s) ([facility] Order # [id number]/) 12/30/2024 Telephone [facility] [address] [place] [address] Fanny Rizvi LPN 12/30/2024 [facility] [address] [phone] Cathy Coyne [place] Request For Order(s) ([facility] Order # [id number]/) 12/26/2024 Telephone Pulmonolgy [address] [phone] Ronald Schilling MD Medication Problem 12/26/2024 Telephone Internal Medicine [address] [phone] Stephania Moscoso MA Referral 12/25/2024 10:30 AM EDT Office Visit [facility] [address] [place] [phone] Alex Ordaz MD Lymphedema (Primary Dx); Non-pressure [...] 10:45 AM EDT Office Visit Internal Medicine [address] [phone] Carlos Jerez MD Dysuria (Primary Dx); Oliguria 12/24/2024 Telephone [facility] [address] [place] [phone] Khan appointment needed 12/24/2024 Telephone Internal Medicine [address] [phone] Melissa Glass MA urine 12/19/2024 8:00 AM EDT Consult [facility] [address] [place] [phone] Ever Torrez PA Lymphedema (Primary Dx); Cellulitis and abscess of left leg; Non-pressure chronic ulcer of left lower leg with fat layer exposed (CMS/HCC V24, CMS/HCC V28); Non-pressure chronic ulcer of left thigh with fat layer exposed ([facility] V24, [facility] V28); Venous insufficiency of left lower extremity 12/17/2024 Telephone Internal Medicine [address] [phone] Marva Carolina MA faxed form (Disability ) 12/12/2024 Telephone Internal Medicine [address] [phone] Carlos Jerez MD Form: FMLA 12/08/2024 Telephone Internal Medicine [address] [phone] Marva Carolina [place] faxed order ([employer] [place]) 12/05/2024 9:30 AM EDT Office Visit Internal [address] [phone] Carlos Jerez MD Cellulitis and abscess of left leg (Primary Dx); Lymphedema; Primary hypertension 12/04/2024 Telephone Internal Medicine [address] [phone] Carlos Jerez MD VNA 12/03/2024 Telephone Internal [address] [phone] Carlos Jerez MD 12/02/2024 Telephone Internal Medicine [address] [phone] Carlos Jerez MD Low grade fever 11/28/2024 3:30 PM EST Office Visit Pulmonolgy [address] [phone] Ronald Schilling MD Mild persistent asthma, unspecified whether complicated (Primary Dx); Morbid obesity with BMI of 60.0-69.9, adult ([facility] V24, [facility] V28) 11/25/2024 9:00 AM EST Office Visit Internal [address] [phone] Carlos Jerez MD Cellulitis and abscess of left leg (Primary Dx); Hospital discharge follow-up; Morbid obesity with BMI of 60.0-69.9, adult ([facility] V24, [facility] V28) 11/21/2024 Telephone Internal Medicine - [facility] [address] [place] [address] Carlos Jerez MD VNA from Last 3 Months Immunizations Name Administration Dates Next Due Influenza trivalent, 0.5mL, preservative free (Fluarix; FluLaval; Fluzone) ages 6mo and older (Afluria) 3 years and older 08/03/2010 PPD Test 01/26/2014 Tdap Tetanus diptheria acell ular pertussis (Boostrix; Adacel) 7yo and older 06/09/2013 Surgical History Surgery Date Site/Laterality Comments OTHER SURGICAL HISTORY PROCEDURE: SD LAPS GASTRIC RESTRICTIVE PROCEDURE PLACE DEVICE COLONOSCOPY [...] Description 01/08/2025 9:30 AM EDT Clinical Support [facility] [address] [place] [address] 01/22/2025 9:30 AM EDT Clinical Support [facility] [address] [place] [phone] 03/10/2025 11:30 AM EDT Office Visit [facility] Hematology Oncology [address] [place] [address] Madelin-Reese Avila MD [address] [place] [address] 06/02/2025 8:15 AM EDT Office Visit Pulmonolgy - [facility] [address] [phone] Ronald Schilling MD [address] [phone] Health Maintenance Due Date Last Done Comments [...] to ulceration/compr omised skin integrity. Camilla Sullivan, inspector wire rope Procedure Name Priority Date/Time Associated Diagnosis Comments [...] B12 and folate (01/05/2025 12:22 PM EDT) [facility] Vitamin B-12 517 250 - 900 pcg/mL LAB CHEMISTRY METHOD 01/05/2025 2:39 PM EDT [facility] Folate 3.8 2.8 - 17.0 ng/ml LAB CHEMISTRY METHOD 01/05/2025 2:39 PM EDT [facility] Blood Venous blood specimen / Unknown Venipuncture / Unknown 01/05/2025 12:22 PM EDT 01/05/2025 1:01 PM EDT us Reese Christensen MD LAB BLOOD ORDERABLE S Final Result [facility] [address] [place] [address], * (ABNORMAL) CBC auto differential (01/05/2025 12:22 PM EDT) Only the most recent of3 resultswithin the time period is included. WBC 6.3 4.8 - 10.8 K/mcL LAB HEMETOLOGY METHOD 01/05/2025 1:40 PM EDT [facility] RBC 4.60 4.50 - 5.50 M/mcL LAB HEMETOLOGY METHOD 01/05/2025 1:40 PM EDT [facility] Hemoglobin 12.3(L) 13.5 - 17.5 g/dL LAB HEMETOLOGY METHOD 01/05/2025 1:40 PM EDT [facility] Hematocrit 38.3(L) 42.0 - 54.0 % LAB HEMETOLOGY METHOD 01/05/2025 1:40 PM EDT [facility] MCV 82.9 79.0 - 98.0 FL LAB HEMETOLOGY METHOD 01/05/2025 1:40 PM EDT [facility] MCH 26.6(L) 27.0 - 32.0 pcg LAB HEMETOLOGY METHOD 01/05/2025 1:40 PM EDT [facility] MCHC 32.1 32.0 - 37.0 g/dL LAB HEMETOLOGY METHOD 01/05/2025 1:40 PM EDT [facility] RDW 16.0(H) 11.0 - 15.0 % LAB HEMETOLOGY METHOD 01/05/2025 1:40 PM EDT [facility] Platelets 400 130 - 400 K/mcL LAB HEMETOLOGY METHOD 01/05/2025 1:40 PM EDT [facility] MPV 9.7 7.0 - 11.0 FL LAB HEMETOLOGY METHOD 01/05/2025 1:40 PM EDT [facility] NRBC 0.0 <1.0 % LAB HEMETOLOGY METHOD [facility] NR[facility] Absolute 0.00 <0.10 K/mcL LAB HEMETOLOGY METHOD 01/05[facility]2025 [facility] Neutrophils Relative 55.5 % LAB HEMETOLOGY METHOD 01/05/2025 1:40 PM EDT [facility] Lymphocytes Relative 20.6 % LAB HEMETOLOGY METHOD 01/05/2025 1:40 PM [facility] Monocytes Relative 7.6 % LAB HEMETOLOGY METHOD 01/05/2025 1:40 PM [facility] Eosinophils Relative 14.7 % LAB HEMETOLOGY METHOD 01/05[facility]2025 1[facility] Basophils Relative 1.3 % LAB HEMETOLOGY METHOD 01/05/2025 1:40 PM [facility] Immature Granulocytes Relative 0.3 % LAB HEMETOLOGY METHOD 01/05/2025 1:40 PM [facility] Neutrophils Absolute 3.50 1.50 - 7.00 K/mcL LAB HEMETOLOGY METHOD 01/05/2025 1:40 PM EDT [facility] Lymphocytes Absolute 1.30 1.00 - 5.00 K/mcL LAB HEMETOLOGY METHOD 01/05/2025 1:40 PM EDT [facility] Monocytes Absolute 0.48 0.20 - 1.00 K/mcL LAB HEMETOLOGY METHOD 01/05/2025 1:40 PM [facility] Eosinophils Absolute 0.93(H) 0.00 - 0.50 K/mcL LAB HEMETOLOGY METHOD 01/05/2025 1:40 PM EDT [facility] Basophils Absolute 0.08 0.00 - 0.20 K/[facility] LAB HEMETOLOGY METHOD 01/05/2025 1:40 PM EDT [facility] Immature Granulocytes Absolute 0.02 0.00 - 0.03 K/[facility] LAB HEMETOLOGY METHOD 01/05/2025 1:40 PM EDT [facility] Blood Venous blood specimen / Unknown Venipuncture / Unknown 01/05/2025 12:22 PM EDT 01/05/2025 1:00 PM EDT us Reese Christensen MD LAB BLOOD ORDERABLE S Final Result Performing Organization Address City/[facility]/ZIP Co de Phone Number [facility] [address] [place] [address], [place] [phone] * (ABNORMAL) Iron and TIBC (01/05/2025 12:22 PM EDT) Iron 52 50 - 160 mcg/dL LAB CHEMISTRY METHOD 01/05/2025 2:39 PM EDT [facility] TIBC 303 250 - 450 mcg/dL LAB CHEMISTRY METHOD 01/05/2025 2:39 PM EDT [facility] Iron Saturation 17(L) 20 - 50 % LAB CHEMISTRY METHOD 01/05/2025 2:39 PM EDT [facility] Blood Venous blood specimen / Unknown Venipuncture / Unknown 01/05/2025 12:22 PM EDT 01/05/2025 1:01 PM EDT us Reese Christensen MD LAB BLOOD ORDERABLE S Final Result [facility] [address] [place] [address], [place] [phone] * Protein, total (01/05/2025 12:22 PM EDT) Pathologist [facility] Total Protein 7.2 6.0 - 8.0 g/dL LAB CHEMISTRY METHOD 01/05/2025 2:20 PM EDT [facility] Blood Venous blood specimen / Unknown Venipuncture / Unknown 01/05/2025 12:22 PM EDT 01/05/2025 1:01 PM EDT us Reese Christensen MD LAB BLOOD ORDERABLE S Final Result [facility] [address] [place] [address], [place] [phone] * Lactate dehydrogenase (01/05/2025 12:22 PM EDT) [facility] LDH 209 120 - 246 unit/L LAB CHEMISTRY METHOD 01/05/2025 2:15 PM EDT [facility] Blood Venous blood specimen / Unknown Venipuncture / Unknown 01/05/2025 12:22 PM EDT 01/05/2025 1:01 PM EDT us Reese Christensen MD LAB BLOOD ORDERABLE S Final Result Performing Organization Address City/[facility]/ZIP Co de Phone Number [facility] [address] [place] [address], [place] [phone] * (ABNORMAL) Haptoglobin (01/05/2025 12:22 PM EDT) Pathologist [facility] Haptoglobin 317(H) 16 - 200 mg/dL LAB CHEMISTRY METHOD 01/05/2025 2:15 PM EDT [facility] Blood Venous blood specimen / Unknown Venipuncture / Unknown 01/05/2025 12:22 PM EDT 01/05/2025 1:01 PM EDT us Reese Christensen MD LAB BLOOD ORDERABLE S Final Result Performing Organization Address [facility] de Phone Number [facility] [address] [place] [address], * Ferritin (01/05/2025 12:22 PM EDT) Ferritin 145 26 - 388 ng/mL LAB CHEMISTRY METHOD 01/05/2025 2:39 PM EDT [facility] Blood Venous blood specimen / Unknown Venipuncture / Unknown 01/05/2025 12:22 PM EDT 01/05/2025 1:01 PM EDT us Reese Christensen MD LAB BLOOD ORDERABLE S Final Result Performing Organization Address [facility] de Phone Number [facility] [address] [place] [address], * Wound Care Procedure Pressure Injury Left [...] ?Risks discussed: ??Bleeding ??Alternatives discussed: ??No treatment [place] protocol: ??Procedure explained and questions answered to [...] ?Risks discussed: ??Bleeding ??Alternatives discussed: ??No treatment [place] protocol: ??Procedure explained and questions answered to [...] ??Infection and pain ??Alternatives discussed: ??Delayed treatment [place] protocol: ??Procedure explained and questions answered to [...] Ordaz MD - 01/01/2025 10:30 AM EDT [facility] ? 01/01/2025 11:51 AM Debridement Other [...] ??Infection and pain ??Alternatives discussed: ??Delayed treatment [place] protocol: ??Procedure explained and questions answered to [...] mmol/L LAB CHEMISTRY METHOD 12/24/2024 8:03 PM [facility] Potassium 4.2 3.5 - 5.5 mmol/L LAB CHEMISTRY METHOD 12/24/2024 8:03 PM [facility] Chloride 104 96 - 110 mmol/L LAB CHEMISTRY METHOD 12/24/2024 8:03 PM [facility] CO2 30 21 - 32 mmol/L LAB CHEMISTRY METHOD 12/24/2024 8:03 PM [facility] Anion Gap 6 3 - 11 LAB CHEMISTRY METHOD 12/24/2024 8:03 PM [facility] Glucose 87 70 - 100 mg/dL LAB CHEMISTRY METHOD 12/24/2024 8:03 PM [facility] BUN 7 5 - 25 mg/dL LAB CHEMISTRY METHOD 12/24/2024 8:03 PM [facility] Creatinine 0.88 0.70 - 1.30 mg/dL LAB CHEMISTRY METHOD 12/24/2024 8:03 PM [facility] eGFR 106 >=60 mL/min/1. 73m2 LAB CHEMISTRY METHOD 12/24/2024 8:03 PM [facility] Comment:Calculation based on the??Chronic Kidney Disease Epidemiology Collaboration (CKD-EPI) equation refit??without adjustment for race. BUN/Creatinine Ratio 8.0 LAB CHEMISTRY METHOD 12/24/2024 8:03 PM [facility] Calcium 8.7 8.5 - 10.5 mg/dL LAB CHEMISTRY METHOD 12/24/2024 8:03 PM [facility] AST (SGOT) 14 10 - 42 unit/L LAB CHEMISTRY METHOD 12/24/2024 8:03 PM [facility] ALT (SGPT) 11 10 - 60 unit/L LAB CHEMISTRY METHOD 12/24/2024 8:03 PM [facility] Alkaline Phosphatase 62 42 - 121 unit/L LAB CHEMISTRY METHOD 12/24/2024 8:03 PM [facility] Total Protein 6.9 6.0 - 8.0 g/dL LAB CHEMISTRY METHOD 12/24/2024 8:03 PM [facility] Albumin 2.4(L) 3.2 - 5.0 g/dL LAB CHEMISTRY METHOD 12/24/2024 8:03 PM [facility] Total Bilirubin 0.7 0.0 - 1.4 mg/dL LAB CHEMISTRY METHOD 12/24/2024 8:03 PM [facility] Blood Venous blood specimen / Unknown Venipuncture / Unknown 12/24/2024 12:47 PM EDT 12/24/2024 1:03 PM EDT us Carlos Jerez MD LAB BLOOD ORDERABLES Final Resul t [facility] [address] [place] [address], [place] [phone] * (ABNORMAL) Urinalysis with reflex microscopic and culture (12/24/2024 12:25 PM EDT) Specific [place] Urine 1.018 1.003 - 1.030 LAB URINALYSIS - AUTOMATED METHOD 12/24/2024 1:49 PM [facility] pH, Urine 6.0 5.0 - 8.0 pH LAB URINALYSIS - AUTOMATED METHOD 12/24/2024 1:49 PM [facility] Leukocytes, Urine Small(A) Negative LAB URINALYSIS - AUTOMATED METHOD 12/24/2024 1:49 PM [facility] Nitrite, Urine Negative Negative LAB URINALYSIS - AUTOMATED METHOD 12/24/2024 1:49 PM [facility] Protein, Urine 300(A) <=Trace mg/dL LAB URINALYSIS - AUTOMATED METHOD 12/24/2024 1:49 PM [facility] Glucose, Urine Negative Negative mg/dL LAB URINALYSIS - AUTOMATED METHOD 12/24/2024 1:49 PM [facility] Ketones, Urine Negative Negative mg/dL LAB URINALYSIS - AUTOMATED METHOD 12/24/2024 1:49 PM [facility] Urobilinogen , Urine 4.0(A) 0.2 - 1.0 mg/dL LAB URINALYSIS - AUTOMATED METHOD 12/24/2024 1:49 PM [facility] Bilirubin, Urine Small(A) Negative LAB URINALYSIS - AUTOMATED METHOD 12/24/2024 1:49 PM [facility] Blood, Urine Large(A) Negative LAB URINALYSIS - AUTOMATED METHOD 12/24/2024 1:49 PM [facility] RBC, Urine 1,569.1(H) 0 - 4 /HPF LAB URINALYSIS - AUTOMATED METHOD 12/24/2024 1:49 PM [facility] WBC, Urine 20.6(H) 0 - 4 /HPF LAB URINALYSIS - AUTOMATED METHOD 12/24/2024 1:49 PM [facility] Squamous Epithelial, Urine 10 0 - 60 /LPF LAB URINALYSIS - AUTOMATED METHOD 12/24/2024 1:49 PM [facility] Non-Squamous Epithelial, Urine 2-5 Transitional epithelial cells. /LPF 12/24/2024 1:49 PM EDT [facility] Bacteria, Urine Negative Negative /HPF LAB URINALYSIS - AUTOMATED METHOD 12/24/2024 1:49 PM EDT [facility] Hyaline Casts, Urine 3.0 0 - 3 /LPF LAB URINALYSIS - AUTOMATED METHOD 12/24/2024 1:49 PM EDT [facility] Urine Urine specimen obtained by clean catch procedure / Unknown Non-blood Collection / Unknown 12/24/2024 12:25 PM EDT 12/24/2024 1:09 PM EDT Carlos Jerez MD LAB URINE ORDERABLES Final Resul t Performing Organization Address [facility]/ZIP Co de Phone Number [facility] [address] [place] [address], [place] [phone] * Vick urine culture tube (12/24/2024 12:25 PM EDT) Extra Tube Hold for add-ons. 12/24/2024 3:01 PM EDT [facility] Comment:Auto resulted. Urine Urine specimen obtained by clean catch procedure / Unknown Non-blood Collection / Unknown 12/24/2024 12:25 PM EDT 12/24/2024 1:09 PM EDT us Carlos Jerez MD LAB URINE ORDERABLES Final Resul t Performing Organization Address City/[facility]/ZIP Co de Phone Number [facility] [address] [place] [address], [place] [phone] * Culture urine (12/24/2024 12:25 PM EDT) Culture, Urine No growth 12/25/2024 7:56 AM EDT [facility] Urine Urine specimen obtained by clean catch procedure / Unknown 12/24/2024 12:25 PM EDT 12/24/2024 1:10 PM EDT Mare Cardona MD LAB MICROBIOLOGY - GENERAL ORD ERABLES Final Result [facility] [address] [place] [address], [place] [phone] * (ABNORMAL) POC Urine Auto W/O Micro (12/24/2024 12:15 PM EDT) Glucose UA POC Trace Negative, Trace mg/dL Bilirubin UA POC 1+(A) Negative, Small Ketones UA POC Trace Negative, Trace Specific [place] UA POC 1.025 Blood UA POC 3+(A) [...] ??Infection and pain ??Alternatives discussed: ??Delayed treatment [place] protocol: ??Procedure explained and questions answered to patient or proxy's satisfaction: yes ?Relevant documents present and verified: yes ?Patient identity confirmed: ??Verbally with patient Sedation: ??Sedation type: ??None Anesthesia: ??Anesthesia method: ??None Procedure details: ??Indications: open wounds ?Wound location: ??Leg ??Leg location: ??L lower leg ??Wound age (days): ??>14 Dressing: ??Dressing: Cob[place] 2 left leg. Post-procedure details: ??Procedure completion: ??Tolerated us Ever SAV[facility] IN CLINIC/BEDSIDE ORDERABLE S [...] related to ulceration/compromised skin integrity. 12/19/2024 Insurance [facility] Care Teams Furniture Upholstery Mechanic Relationship Specialty Start Date End Date Carlos Jerez MD [address] [place] [id number] PCP - General Internal Medicine 09/12/18
--- OUTSIDE RECORDS SUMMARY | 2025-01-06 18:50 | XMS_ITS | Encounter Summary ---
Author Organization [facility] Address [address] [place] [address] Care Team Providers Care Dust Box Worker Name Role Phone Carlos Jerez MD Primary Care Provider [phone] Reason for Visit * Reason Onset Date Comments Request For Order(s) 12/31/2024 [facility] Order # [id number] Encounter Details Date Type Department Care Team (Late st Contact Info) Description 12/31/2024 Telephone Internal Medicine - [place] [address] [facility] [address] [place] [address] Cathy Coyne MA Request For Order(s) ([facility] Order # [id number]/) Social History Tobacco Use Types Packs/Day Years [...] EDT Scanned into chart and faxed to [facility] [phone] * Cathy Coyne MA - 12/31/2024 11:10 AM EDT [facility] Order # [id number] Please sign & documented in this encounter Plan of Treatment Upcoming Encounters Date Type Department Care Team (Late st Contact Info) Description 01/08/2025 9:30 AM EDT Clinical Support [facility] [address] [place] [phone] 01/22/2025 9:30 AM EDT Clinical Support [facility] [address] [place] [phone] 03/10/2025 11:30 AM EDT Office Visit [facility] Hematology Oncology [address] [place] [phone] Reese Christensen MD [address] [place] [address] 06/02/2025 8:15 AM EDT Office Visit Pulmonolgy - [place] [address] [phone] Ronald Schilling MD [address] [address] documented as of this encounter Goals Goal Patient Goal Type Associated Problems Recent Progress Patient-Stated? Author Decrease Wound Volume by X% by date (in notes) Care Plan Impaired Tissue On track( 025 11:14 AM EDT) No Camilla Perales, JERICA Patient and Caregiver Understand Wound Care Education Care Plan Impaired Tissue On track( 025 11:14 AM EDT) No Camilla Perales, revenue stamper volume breakdown reduced by X% by week 4 Care Plan Impaired Tissue No Camilla Perales, revenue stamper volume breakdown reduced by X% by week 8 Care Plan Impaired Tissue No Camilla Perales, revenue stamper volume breakdown reduced by X% by week [...] documented as of this encounter Care Teams Dust Box Worker Relationship Specialty Start Date End Date Carlos Jerez MD [address] [place] [address] PCP - General Internal Medicine 09/12/18 documented as of this encounter
--- OUTSIDE RECORDS SUMMARY | 2025-01-06 18:50 | XMS_ITS | Encounter Summary ---
Author Organization [facility] Address [address] [place] [address] Care Team Providers Care Can Sealer Name Role Phone Carlos Jerez MD Primary Care Provider [phone] Reason for Visit * Reason Onset Date Comments Request For Order(s) 12/31/2024 [facility] Order # [id number] Encounter Details Date Type Department Care Team (Late st Contact Info) Description 12/31/2024 Telephone Internal Medicine - [place] [address] [facility] [address] [place] [address] Cathy Coyne MA Request For Order(s) ([facility] Order # [id number]/) Social History Tobacco Use Types Packs/Day Years [...] to [facility] [phone] * Cathy Coyne MA - 12/31/2024 11:07 AM EDT [facility] Order # [id number] Please sign & documented in this encounter Plan of Treatment Upcoming Encounters Date Type Department Care Team (Late st Contact Info) Description 01/08/2025 9:30 AM EDT Clinical Support [facility] [address] [place] [address] 01/22/2025 9:30 AM EDT Clinical Support [facility] [address] [place] [phone] 03/10/2025 11:30 AM EDT Office Visit [facility] Hematology Oncology [address] [place] [address] Reese Christensen MD [address] [place] [address] 06/02/2025 8:15 AM EDT Office Visit Pulmonolgy - [place] [address] [phone] Ronald Schilling MD [address] [address] documented as of this encounter Goals Goal Patient Goal Type Associated Problems Recent Progress Patient-Stated? Author Decrease Wound Volume by X% by date (in notes) Care Plan Impaired Tissue On track( 025 11:14 AM EDT) No Camilla Perales, JERICA Patient and Caregiver Understand Wound Care Education Care Plan Impaired Tissue On track( 025 11:14 AM EDT) No Camilla Perales, manager process improvement volume breakdown reduced by X% by week 4 Care Plan Impaired Tissue No Camilla Perales, manager process improvement volume breakdown reduced by X% by week 8 Care Plan Impaired Tissue No Camilla Perales, manager process improvement volume breakdown reduced by X% by week [...] documented as of this encounter Care Teams Can Sealer Relationship Specialty Start Date End Date Carlos Jerez MD [address] [place] [address] PCP - General Internal Medicine 09/12/18 documented as of this encounter
--- OUTSIDE RECORDS SUMMARY | 2025-01-06 18:50 | XMS_ITS | Encounter Summary ---
Author Organization [facility] Address [address] [place] [address] Care Team Providers Care Event Coordinator Marketing And Sales Name Role Phone Carlos Jerez MD Primary Care Provider [phone] Reason for Visit * Reason Onset Date Comments Request For Order(s) 01/05/2025 [facility] Order # [id number] Encounter Details Date Type Department Care Team (Late st Contact Info) Description 01/05/2025 Telephone Internal Medicine - [place] [address] [facility] [address] [address] [place] [address] Cathy Coyne MA Request For Order(s) ([facility] Order # [id number]/) Social History Tobacco Use Types Packs/Day Years [...] Coyne MA - 01/05/2025 1:57 PM EDT [facility] Order # [id number] Please sign & documented in this encounter Plan of Treatment Upcoming Encounters Date Type Department Care Team (Late st Contact Info) Description 01/08/2025 9:30 AM EDT Clinical Support [facility] [address] [place] [phone] 01/22/2025 9:30 AM EDT Clinical Support [facility] [address] [place] [address] 03/10/2025 11:30 AM EDT Office Visit [facility] Hematology Oncology [address] [place] [address] Reese Christensen MD [address] [place] [address] 06/02/2025 8:15 AM EDT Office Visit Pulmonolgy [facility] [address] [phone] Ronald Schilling MD [address] [address] documented as of this encounter Goals Goal [...] documented as of this encounter Care Teams Event Coordinator Marketing And Sales Relationship Specialty Start Date End Date Carlos Jerez MD [address] [place] [address] PCP - General Internal Medicine 09/12/18 documented as of this encounter
--- OUTSIDE RECORDS SUMMARY | 2025-01-06 18:50 | XMS_ITS | Encounter Summary ---
Author Organization [facility] Address [address] [place] [address] Care Team Providers Care Tire Changer Name Role Phone Carlos Jerez MD Primary Care Provider [phone] Reason for Visit * Reason Onset Date Comments Request For Order(s) 12/31/2024 [facility] Order # [id number] Encounter Details Date Type Department Care Team (Late st Contact Info) Description 12/31/2024 Telephone Internal Medicine - [place] [address] [facility] [address] [place] [address] Cathy Coyne MA Request For Order(s) ([facility] Order # [id number]/) Social History Tobacco Use Types Packs/Day Years [...] EDT Scanned into chart and faxed to [facility] [phone] * Cathy Coyne MA - 12/31/2024 11:19 AM EDT [facility] Order # [id number] Please sign & documented in this encounter Plan of Treatment Upcoming Encounters Date Type Department Care Team (Late st Contact Info) Description 01/08/2025 9:30 AM EDT Clinical Support [facility] [address] [place] [address] 01/22/2025 9:30 AM EDT Clinical Support [facility] [address] [place] [phone] 03/10/2025 11:30 AM EDT Office Visit [facility] Hematology Oncology [address] [place] [address] Reese Christensen MD [address] [place] [address] 06/02/2025 8:15 AM EDT Office Visit Pulmonolgy - [place] [address] [phone] Ronald Schilling MD [address] [address] documented as of this encounter Goals Goal Patient Goal Type Associated Problems Recent Progress Patient-Stated? Author Decrease Wound Volume by X% by date (in notes) Care Plan Impaired Tissue On track( 025 11:14 AM EDT) No Camilla Perales, JERICA Patient and Caregiver Understand Wound Care Education Care Plan Impaired Tissue On track( 025 11:14 AM EDT) No Camilla Perales, production supply equipment tender volume breakdown reduced by X% by week 4 Care Plan Impaired Tissue No Camilla Perales, production supply equipment tender volume breakdown reduced by X% by week 8 Care Plan Impaired Tissue No Camilla Perales, production supply equipment tender volume breakdown reduced by X% by week [...] documented as of this encounter Care Teams Tire Changer Relationship Specialty Start Date End Date Carlos Jerez MD [address] [place] [address] PCP - General Internal Medicine 09/12/18 documented as of this encounter
--- OUTSIDE RECORDS SUMMARY | 2025-01-06 18:50 | XMS_ITS | Encounter Summary ---
Author Organization [facility] Address [address] [place] [address] Care Team Providers Care Rehabilitation Tech Name Role Phone Carlos Jerez MD Primary Care Provider [phone] Reason for Visit * Reason Comments Consult * Consultation (Routine) - Authorized Specialty Diagnoses / Procedures Referred By Contac t Referred To Contact Hematology and Oncology Diagnoses Normocytic anemia Carlos Jerez MD [address] [address] Phone: tel: fax: Reese Christensen MD [address] [place] [address] Phone: tel: fax: Referral ID Status Reason Start Date Expiration Date Visits Requested Visits Authorized [id number] Authorized Specialty Services Required 11/25/2024 11/25/2025 6 6 Encounter Details Date Type Department Care Team (Late st Contact Info) Description 01/05/2025 11:30 AM EDT Office Visit [facility] Hematology Oncology [address] [place] [address] Reese Christensen MD [address] [place] [address] Normocytic anemia (Primary Dx); Cellulitis of left leg; Hypoalbuminemia; Sickle cell trait ([facility] V24) Social History Tobacco Use Types Packs/Day [...] patient's recent history he was admitted to [facility] from 11/16-11/21/2024, with an episode of [...] to exercise. 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 Morbid obesity with BMI of 60.0-69.9, adult ([facility] V24, [facility] V28) 09/02/2020 Resolved Ambulatory Problems Diagnosis Date Noted No Resolved Ambulatory Problems Past Medical History: Diagnosis Date Asthma History of diverticulitis Lymphedema PAST SURGICAL HISTORY: Past Surgical History: Procedure Laterality Date COLONOSCOPY OTHER SURGICAL HISTORY PROCEDURE: [place] LAPS GASTRIC RESTRICTIVE PROCEDURE PLACE DEVICE SOCIAL [...] Protein electrophoresis, serum Please do this test [id number] , do not change thank you Standing Status: Future Standing Expiration Date: 01/05/2026 Vitamin B12 and folate Standing Status: Future Standing Expiration Date: 01/05/2026 Hemoglobin electrophoresis Standing Status: Future Standing Expiration Date: 01/05/2026 ASSESSMENT 1. Normocytic anemia 2. Cellulitis of left leg 3. Hypoalbuminemia 4. Sickle cell trait ([facility] V24) PLAN: 49-year-old gentleman, previously employed as a clinical social work aide, currently recovering from an episodeof severe cellulitis [...] 01/08/2025 9:30 AM EDT Clinical Support [facility] [address] [place] [phone] 01/22/2025 9:30 AM EDT Clinical Support [facility] [address] [place] [phone] 03/10/2025 11:30 AM EDT Office Visit [facility] Hematology Oncology [address] [place] [address] Reese Christensen MD [address] [place] [address] 06/02/2025 8:15 AM EDT [facility] [address] [phone] Ronald Schilling MD [address] [address] Pending Results Name Type Priority Associated Diagnoses [...] and folate (01/05/2025 12:22 PM EDT) Pathologist [facility] Vitamin B-12 517 250 - 900 pcg/mL LAB CHEMISTRY METHOD 01/05/2025 2:39 PM EDT [facility] Folate 3.8 2.8 - 17.0 ng/ml LAB CHEMISTRY METHOD 01/05/2025 2:39 PM EDT [facility] Blood Venous blood specimen / Unknown Venipuncture / Unknown 01/05/2025 12:22 PM EDT 01/05/2025 1:01 PM EDT us Reese Christensen MD LAB BLOOD ORDERABLE S Final Result [facility] [address] [place] [address], * (ABNORMAL) Haptoglobin (01/05/2025 12:22 PM EDT) Pathologist [facility] Haptoglobin 317(H) 16 - 200 mg/dL LAB CHEMISTRY METHOD 01/05/2025 2:15 PM EDT [facility] Blood Venous blood specimen / Unknown Venipuncture / Unknown 01/05/2025 12:22 PM EDT 01/05/2025 1:01 PM EDT us Reese Christensen MD LAB BLOOD ORDERABLE S Final Result Performing Organization Address City/[facility]/ZIP Co de Phone Number [facility] [address] [place] [address], [place] [phone] * Lactate dehydrogenase (01/05/2025 12:22 PM EDT) LDH 209 120 - 246 unit/L LAB CHEMISTRY METHOD 01/05/2025 2:15 PM EDT [facility] Blood Venous blood specimen / Unknown Venipuncture / Unknown 01/05/2025 12:22 PM EDT 01/05/2025 1:01 PM EDT us Reese Christensen MD LAB BLOOD ORDERABLE S Final Result Performing Organization Address [facility]/ZIP Co de Phone Number [facility] [address] [place] [address], [place] [phone] * Ferritin (01/05/2025 12:22 PM EDT) Ferritin 145 26 - 388 ng/mL LAB CHEMISTRY METHOD 01/05/2025 2:39 PM EDT [facility] Blood Venous blood specimen / Unknown Venipuncture / Unknown 01/05/2025 12:22 PM EDT 01/05/2025 1:01 PM EDT us Reese Christensen MD LAB BLOOD ORDERABLE S Final Result Performing Organization Address City/[facility]/ZIP Co de Phone Number [facility] [address] [place] [address], [place] [phone] * (ABNORMAL) Iron and TIBC (01/05/2025 12:22 PM EDT) Iron 52 50 - 160 mcg/dL LAB CHEMISTRY METHOD 01/05/2025 2:39 PM EDT [facility] TIBC 303 250 - 450 mcg/dL LAB CHEMISTRY METHOD 01/05/2025 2:39 PM EDT [facility] Iron Saturation 17(L) 20 - 50 % LAB CHEMISTRY METHOD 01/05/2025 2:39 PM EDT [facility] Blood Venous blood specimen / Unknown Venipuncture / Unknown 01/05/2025 12:22 PM EDT 01/05/2025 1:01 PM EDT Reese Christensen MD LAB BLOOD ORDERABLE S Final Result [facility] [address] [place] [address], documented in this encounter Visit Diagnoses Diagnosis Normocytic anemia- Primary Unspecified anemia Cellulitis of left leg Hypoalbuminemia Other disorders of plasma protein metabolism Sickle cell trait ([facility] V24) Sickle-cell trait documented in this encounter [...] documented as of this encounter Care Teams Rehabilitation Tech Relationship Specialty Start Date End Date Carlos Jerez MD 175 [facility] [address] [place] [address] PCP - General Internal Medicine 09/12/18 documented as of this encounter
--- OUTSIDE RECORDS SUMMARY | 2025-01-06 18:50 | XMS_ITS | Encounter Summary ---
Author Organization [facility] Address [address] [place] [address] Care Team Providers Care Route Driver Coin Machines Name Role Phone Carlos Jerez MD Primary Care Provider [phone] Reason for Visit * Reason Onset Date Comments Request For Order(s) 12/31/2024 [facility] Order # [id number] Encounter Details Date Type Department Care Team (Late st Contact Info) Description 12/31/2024 Telephone Internal Medicine - [place] [address] [facility] [address] [place] [address] Cathy Coyne MA Request For Order(s) ([facility] Order # [id number]/) Social History Tobacco Use Types Packs/Day Years [...] EDT Scanned into chart and faxed to [facility] [phone] * Cathy Coyne MA - 12/31/2024 11:21 AM EDT [facility] Order # [id number] Please sign & documented in this encounter Plan of Treatment Upcoming Encounters Date Type Department Care Team (Late st Contact Info) Description 01/08/2025 9:30 AM EDT Clinical Support [facility] [place] [facility] [address] [place] [address] 01/22/2025 9:30 AM EDT Clinical Support [facility] [place] [facility] [address] [place] [phone] 03/10/2025 11:30 AM EDT Office Visit [facility] Hematology Oncology [address] [place] [address] Reese Christensen MD [address] [place] [address] 06/02/2025 8:15 AM EDT Office Visit Pulmonolgy - [place] [address] [phone] Ronald Schilling MD [address] [address] documented as of this encounter Goals Goal Patient Goal Type Associated Problems Recent Progress Patient-Stated? Author Decrease Wound Volume by X% by date (in notes) Care Plan Impaired Tissue On track( 025 11:14 AM EDT) No Camilla Perales, JERICA Patient and Caregiver Understand Wound Care Education Care Plan Impaired Tissue On track( 025 11:14 AM EDT) No Camilla Perales, production expert volume breakdown reduced by X% by week 4 Care Plan Impaired Tissue No Camilla Perales, production expert volume breakdown reduced by X% by week 8 Care Plan Impaired Tissue No Camilla Perales, production expert volume breakdown reduced by X% by [...] documented as of this encounter Care Teams Route Driver Coin Machines Relationship Specialty Start Date End Date Carlos Jerez MD [address] [place] [address] PCP - General Internal Medicine 09/12/18 documented as of this encounter
[2025-01-06 19:05] LABS: Creatinine Urine 128.24 mg/dL; Protein/Creatinine Ratio, Ur 0.11 (<0.2); Total Protein Urine Random 14 mg/dL (<12)
[2025-01-07 08:04] LABS: HBsAGNum1 0.28 S/CO (0.00-0.99); Hepatitis B Core Antibody Nonreactive (Nonreactive); Hepatitis B Surface Antigen Negative (Negative)
[2025-01-07 11:13] LABS: Complement C3 211 mg/dL (82-185)
[2025-01-07 22:08] LABS: Anti DNA DS Antibody <1 IU/mL; Anti Glomerular Basement Memb <1.0 AI; Myeloperoxidase Antibody <1.0 AI; Proteinase 3 PR3 Antibodies <1.0 AI
[2025-01-09 08:23] LABS: IgA 302 mg/dL (47-310); IgG 1653 mg/dL (600-1640); IgM 67 mg/dL (50-300)
[2025-01-12 17:53] LABS: Phospholipase A2 IgG ELISA 5 RU/mL; Phospholipase A2 IgG IFA NEGATIVE (NEGATIVE)
== END 2025-01-06 15:00 | disposition home or self-care (01) ==
LOC: HO.HKASLDS 14:59
PROVIDERS: PCP Internal Medicine; Referring Provider Internal Medicine; Visit Provider Internal Medicine Nephrology
DX: R80.9 Proteinuria, unspecified (principal); E88.09 Other disorders of plasma-protein metabolism, not elsewhere classified
CPT/HCPCS: 80051; 82040; 82310; 82565; 82570; 82784; 83520; 84156; 84450; 84460; 84520; 86021; 86160; 86225; 86255; 86334; 86335; 86704; 87340

== ENCOUNTER 2025-01-08 11:47 | Outpatient (REF) | payer BC, SELFPAY ==
[2025-01-08 12:41] LABS: Creatinine, mg/dL 61.44; Protein mg/dL < 7 mg/dL
[2025-01-08 13:00] LABS: Creatinine, 24Hr Urine 1.3 G/Day (1.0-2.0); Protein 24 Hr Urine < 145 mg/Day (<150); Total Volume 24 Hour Urine 2075 mL
--- OUTSIDE RECORDS SUMMARY | 2025-01-08 14:43 | XMS_ITS ---
Care Plan Created on: January 08, 2025 Cassie Yoon : 1975 Sex: Male Author Organization [address] [facility] Address [address] [place] [address] Phone Care Team Providers Care As400 Administrator Name Role Phone Carlos Jerez MD Primary Care Provider [phone] Active Problems Problem Noted Date Diagnosed Date Hyperlipidemia 07/09/2021 Primary hypertension 07/09/2021 Vitamin B12 deficiency 07/09/2021 Morbid obesity with BMI of 6 0.0-69.9, adult ([facility] V24, [facility] V28) 09/02/2020 Gynecomastia 08/23/2020 Chronic cough [...] Care Plan Impaired Tissue On track( 025 10:12 AM EDT) Camilla Sullivan RN Patient and Caregiver Understand Wound Care Education Care Plan Impaired Tissue On track( 025 10:12 AM EDT) Camilla Sullivan RN Wound volume [...]
--- OUTSIDE RECORDS SUMMARY | 2025-01-08 14:43 | XMS_ITS | Encounter Summary ---
Author Organization [facility] Address [address] [place] [address] Care Team Providers Care Powder Worker Name Role Phone Carlos Jerez MD Primary Care Provider [phone] Reason for Visit * Reason Onset Date Comments Request For Order(s) 01/05/2025 [facility] Order # [id number] Encounter Details Date Type Department Care Team (Late st Contact Info) Description 01/05/2025 Telephone Internal Medicine - [place] [address] [facility] [address] [place] [address] Cathy Coyne MA Request For Order(s) ([facility] Order # [id number]/) Social History Tobacco Use Types Packs/Day Years [...] Progress Notes * Cathy Coyne MA - 01/07/2025 11:32 AM EDT Scanned into chart and faxed to [facility] [phone] * Cathy Coyne MA - 01/05/2025 8:49 AM EDT [facility] Order # [id number] Please sign & documented in this encounter Plan of Treatment Upcoming Encounters Date Type Department Care Team (Late st Contact Info) Description 01/22/2025 9:30 AM EDT Clinical Support [facility] [address] [place] [address] 03/10/2025 11:30 AM EDT Office Visit [facility] Hematology Oncology [address] [place] [address] Reese Christensen MD [address] [place] [address] 06/02/2025 8:15 AM EDT Office Visit Pulmonolgy - [place] [address] [phone] Ronald Schilling MD [address] [address] documented as of this encounter Goals Goal Patient Goal Type Associated Problems Recent Progress Patient-Stated? Author Decrease Wound Volume by X% by date (in notes) Care Plan Impaired Tissue On track( 025 10:12 AM EDT) No Camilla Perales RN Patient and Caregiver Understand Wound Care Education Care Plan Impaired Tissue On track( 025 10:12 AM EDT) No Camilla Perales, distribution manager volume breakdown reduced by X% by week 4 Care Plan Impaired Tissue No Camilla Perales RN Wound volume breakdown reduced by X% by week 8 Care Plan Impaired Tissue No Camlila Perales, distribution manager volume breakdown reduced by X% by week [...] documented as of this encounter Care Teams Powder Worker Relationship Specialty Start Date End Date Carlos Jerez MD [address] [place] [address] PCP - General Internal Medicine 09/12/18 documented as of this encounter
--- OUTSIDE RECORDS SUMMARY | 2025-01-08 14:43 | XMS_ITS | Encounter Summary ---
Author Organization [facility] Address [address] [place] [address] Care Team Providers Care Waiter/Waitress Cocktail Lounge Name Role Phone Carlos Jerez MD Primary Care Provider [phone] Encounter Details Date Type Department Care Team (Late st Contact Info) Description 12/03/2024 Telephone Internal Medicine - [place] [address] [facility] [address] [place] [phone] Carlos Jerez MD 175 [facility] [address] [place], [place] [id number] Social History Tobacco Use Types Packs/Day Years [...] 12/03/2024 2:51 PM EDT [facility] PT in [facility] Checking on a script from [facility] for crutches -- told him we have not yet received. It was faxed on 11/25 and again the following week. He gave me ph# for [facility] [place]. He says pt needs these crutches he's not able to walk and he's abigger dago and needs it. Called [facility] at [phone], they are refaxing this script now. Please advise, Ty documented in this encounter Plan of Treatment Upcoming Encounters Date Type Department Care Team (Late st Contact Info) Description 01/22/2025 9:30 AM EDT Clinical Support [facility] [address] [place] [address] 03/10/2025 11:30 AM EDT Office Visit [facility] Hematology Oncology [address] [place] [address] Reese Christensen MD [address] [place] [address] 06/02/2025 8:15 AM EDT Office Visit Pulmonolgy - [place] [address] [phone] Ronald Schilling MD [address] [address] documented as of this encounter Visit Diagnoses Not on filedocumented in this encounter Care Teams Waiter/Waitress Cocktail Lounge Relationship Specialty Start Date End Date Carlos Jerez MD [address] [address] PCP - General Internal Medicine 09/12/18 documented as of this encounter
--- OUTSIDE RECORDS SUMMARY | 2025-01-08 14:44 | XMS_ITS | Encounter Summary ---
Author Organization [facility] Address [address] [place] [address] Care Team Providers Care Automotive Electrician Name Role Phone Carlos Jerez MD Primary Care Provider [phone] Reason for Visit * Reason Onset Date Comments Request For Order(s) 01/01/2025 [facility] Health Cert 11/22/24-01/20/25 Plan Of Care Encounter Details Date Type Department Care Team (Late st Contact Info) Description 01/01/2025 Telephone Internal Medicine - [place] [address] [facility] [address] [place] [phone] Cathy Coyne MA Request For Order(s) ([facility] Cert 11/22/24-01/20/25 Plan Of Care /) [...] Notes * Cathy Coyne MA - 01/07/2025 11:42 AM EDT Scanned into chart and faxed to [facility] [phone] * Cathy Coyne MA - 01/01/2025 2:14 PM EDT [facility] 11/22/24-01/20/25 Plan Of Care Please sign & documented in this encounter Plan of Treatment Upcoming Encounters Date Type Department Care Team (Late st Contact Info) Description 01/22/2025 9:30 AM EDT Clinical Support [facility] [address] [place] [address] 03/10/2025 11:30 AM EDT Office Visit [facility] Hematology Oncology [address] [place] [address] Reese Christensen MD [address] [place] [address] 06/02/2025 8:15 AM EDT Office Visit Pulmonolgy - [place] [address] [phone] Ronald Schilling MD [address] [address] documented as of this encounter Goals Goal Patient Goal Type Associated Problems Recent Progress Patient-Stated? Author Decrease Wound Volume by X% by date (in notes) Care Plan Impaired Tissue On track( 025 10:12 AM EDT) No Camilla Pearles, JERICA Patient and Caregiver Understand Wound Care Education Care Plan Impaired Tissue On track( 025 10:12 AM EDT) No Camilla Perales, marketing recruiter volume breakdown reduced by X% by week 4 Care Plan Impaired Tissue No Camilla Perales, marketing recruiter volume breakdown reduced by X% by week 8 Care Plan Impaired Tissue No Camilla Perales, marketing recruiter volume breakdown reduced by X% by week [...] documented as of this encounter Care Teams Automotive Electrician Relationship Specialty Start Date End Date Carlos Jerez MD [address] [place] [phone] PCP - General Internal Medicine 09/12/18 documented as of this encounter
--- OUTSIDE RECORDS SUMMARY | 2025-01-08 14:44 | XMS_ITS | Encounter Summary ---
Author Organization [employer] Address [address] [place] [address] Care Team Providers Care Pneumatic Press Hand Name Role Phone Carlos Jerez MD Primary Care Provider [phone] Reason for Visit * Reason Comments Wound Care Encounter Details Date Type Department Care Team (Latest Contact Info) Description 01/08/2025 9:30 AM EDT Office Visit [facility] [address] [place] [phone] Alex Ordaz MD [address] [place] [address] Pressure injury of right buttock, stage 3 (CMS/HCC V24, CMS/[facility] V28) (Primary Dx); Pressure injury of left buttock, stage 3 (CMS/HCC V24, CMS/HCC V28); Non-pressure chronic ulcer of left thigh with fat layer exposed (CMS/HCC V24, CMS/HCC V28); Non-pressure chronic ulcer of left lower leg with fat layer exposed (CMS/HCC V24, CMS/[facility] V28); Lymphedema; Venous insufficiency of left lower extremity Social History Tobacco Use Types Packs/Day Years [...] Sign Reading Time Taken Comments Blood Pressure 134/96 01/08/2025 9:57 AM EDT Pulse 87 01/08/2025 9:57 AM EDT Temperature 36.8 ??C (98.2 ??F) 01/08/2025 9:57 AM ED T Respiratory Rate 17 01/08/2025 9:57 AM EDT Oxygen Saturation 94% 01/08/2025 9:57 AM EDT Inhaled Oxygen Concentration - - Weight - - Height - - Body Mass Index - - documented in this encounter Progress Notes * Camilla Perales RN - 01/08/2025 9:30 AM EDT PROVIDER ORDERS Go to ER if you are presenting with fever, chills, increased redness, pain, swelling, warmth aroundwound area and/or foul smelling odor. If you have any questions or concerns, please contact the [facility] at . It was noted today during your visit that your blood pressure is elevated. Close follow-up with PCPis recommended for possible evaluation of starting and or changing blood pressure medication. VisitVitals BP (!) 134/96 Pulse 87 Temp 36.8 ??C (98.2 ??F) (Temporal) Resp 17 SpO2 94% Smoking Status Never Follow up(s)/ Referrals: Lymphedema Clinic: please call to follow up on your referral Vascular: [facility] 01/14/25 8 am [facility]- we will send a referral in and they will reach out to you Fpc: Home care: [facility] Additional Orders: Increase protein in your [...] remove / unwrap compression and notify [facility] at . ) Coban 2 wrap to left lower extremity, Elevate legs above heart level as much as possible, Avoid standing for extended periods of time. Wear your own compression on your right leg Offloading: Gel wheelchair cushion prescription being sent to [facility] please call them to follow up on the gel cushion Negative Pressure Wound Therapy: (If wound vac [...] Coban 2 wrap to left lower extremity add a wrap of unna boot to the top of thecalf to prevent the Coban 2 from sliding down Dressing Change Frequency: Three times each week [...] Change Frequency: Three times each week * Alex Ordaz MD - 01/08/2025 9:30 AM EDTAssociated Order(s): Wound Care Procedure Other (comment) (Lymphedema ) Left;Anterior;Lower Leg; Ngozi ridement Other (comment) (Lymphedema ) Left;Anterior;Lower Leg; Debridement Other (comment) (Lymphedema ) Left;Upper;Medial Leg; Wound Care Procedure Post-Procedure Diagnose(s): Lymphedema; Non-pressure chronic ulcer of left thigh with fat layer exposed (CMS/HCC V24, CMS/HCC V28); Non-pressure chronic ulcer of left lower leg with fat layer exposed(CMS/HCC V24, CMS/HCC V28); Venous insufficiency of left lower extremity; Pressure injury of right buttock, stage 3 (CMS/HCC V24, CMS/HCC V28); Pressure injury of left buttock, stage 3 (CMS/HCC V24, CMS/HCC V28) Images from the original note were not included. [facility] at [address] [address] Office Visit Visit Date: 01/08/2025 Patient Name: Cassie Yoon Date of : [...] be improving and he is feeling well. Since last visit reports of the buttock wounds significant pain after debridement, otherwise feeling well. Saw his behavior therapist and was put on Lasix. Was also found to have protein in his urine and is having a workup for this also. No fevers or chills. Assessment and Plan: Left lower leg ulcers appear to be improving both in measurement and appearance today. Debridement done. Continue with compression and alginate. Pending evaluation with [facility]. Bilateral buttock wounds are stage III due to pressure. Wounds are improving. Silver nitrate cautery to these wounds due to hypergranulation tissue within the wound beds. No evidence of infection today. He has a prescription for offloading and will try to fill it this week. Follow-up in 2 weeks. Pressure injury of right buttock, stage 3 (CMS/HCC V24, CMS/HCC V28) (Primary) Pressure injury of left buttock, stage 3 (CMS/HCC V24, CMS/HCC V28) Non-pressure chronic ulcer of left thigh with fat layer exposed (CMS/HCC V24, CMS/HCC V28) Non-pressure chronic ulcer of left lower leg with fat layer exposed (CMS/HCC V24, CMS/HCC V28) - Wound Care Procedure Other (comment) (Lymphedema ) Left;Anterior;Lower Leg Lymphedema - Wound Care Procedure Other (comment) (Lymphedema ) Left;Anterior;Lower Leg Venous insufficiency of left lower extremity Other orders - Debridement - Debridement - Wound Care Procedure All questions were answered to his satisfaction. He was counseled regarding my impressions, instructions for management, and the importance of compliance with treatment. Follow up in about 2 weeks (around 01/22/2025), or Dr. Jasso, for Coban 2. >>>>>>>>>>>>>>>>>>>>>>>>>>>>>>>>>>>>>>>>>>>>>>>>>>> Vital Signs: Visit Vitals BP (!) 134/96 Pulse 87 Temp 36.8 ??C (98.2 ??F) (Temporal) Resp 17 Review of Systems: Review of Systems Constitutional: Negative for chills and fever. PHYSICAL EXAM Physical Exam Vitals and nursing note reviewed. Constitutional: Appearance: Normal appearance. He is obese. He is not ill-appearing. Pulmonary: Effort: Pulmonary effort is normal. Musculoskeletal: Comments: Bilateral lower extremity edema, 2+, pitting Skin: Comments: Left lower extremity ulcers on the medial thigh and anterior lower leg have slough and fibrous debris overlying a pink wound bed. Edges are intact. No periwound erythema. Bilateral buttock ulcers have hypergranulation tissue within the wound beds, no tunneling or undermining. Periwound is without erythema. WOUND ASSESSMENT If photograph of wound not visible on this note, please check under Media tab. Wound Other (comment) Leg Left;Anterior;Lower (Active) No Date First Assessed or Time First Assessed found. Primary Wound Type: (c) Other (comment) Wound Approximate Age at First Assessment (Weeks): 5 weeks Hand Hygiene Completed: Yes Location: Leg WoundLocation Orientation: Left;Anterior;Lower Assessments 12/19/2024 8:40 AM 01/08/2025 9:48 AM Wound Image Wound Bed Tissue Assessment [place];Sloughing Granulation;Sloughing Howard-Wound Assessment Intact Scarred;Intact Shape -- Diffuse Wound Length (cm) 16 cm 13 cm Wound Width (cm) 26.6 cm 26.8 cm Wound Surface Area (cm^2) 425.6 cm^2 348.4 cm^2 Wound Depth (cm) 0.1 cm 0.1 cm Wound Volume (cm^3) 42.56 cm^3 34.84 cm^3 Wound Healing % -- 18 Drainage Description Serous Serous Drainage Amount Copious Copious Treatments Cleansed Cleansed;Other [...] Orders Date Order Priority Status Authorizing Provider 01/08/25 1101 Debridement Routine Active Alex Ordaz MD 01/08/25 1011 Wound Care Procedure Other (comment) (Lymphedema ) Left;Anterior;Lower Leg Routine Active Alex Ordaz MD Inactive Orders Date Order Priority Status Authorizing Provider 01/01/25 1136 Debridement Other (comment) (Lymphedema ) Left;Anterior;Lower Leg Routine Completed HUSSEIN Dubois 01/01/25 1112 Wound Care Procedure Other (comment) (Lymphedema ) Left;Anterior;Lower Leg Routine Completed Alex Ordaz MD 12/25/24 1226 Debridement Other (comment) (Lymphedema ) [...] WoundLocation Orientation: Left;Upper;Medial Assessments 12/19/2024 8:44 AM 01/08/2025 9:51 AM Wound Image Wound Bed Tissue Assessment [place];Sloughing Granulation;Sloughing Howard-Wound Assessment Intact Dry;Intact Wound Length (cm) 13 cm 11.5 cm Wound Width (cm) 6.8 cm 6.5 cm Wound Surface Area (cm^2) 88.4 cm^2 74.75 cm^2 Wound Depth (cm) 0.1 cm 0.1 cm Wound Volume (cm^3) 8.84 cm^3 7.475 cm^3 Wound Healing % -- 15 Drainage Description Serous Serous Drainage Amount Large Copious Treatments Cleansed Cleansed;Other (Comment) Dressing -- Bladimir wrap Dressing Status -- Removed Wound Bed Granulation (%) 50 % 50 % Wound Bed Epithelialization (%) 0 % -- Wound Bed Slough (%) 50 % 50 % Wound Bed Eschar (%) 0 % 0 % Tunneling 0 cm 0 cm Undermining 0 cm 0 cm Edges Well-defined edges;Attached edges Well-defined edges;Attached edges Non-staged Wound Description Full thickness Full thickness Active Orders Date Order Priority Status Authorizing Provider 01/08/25 1101 Debridement Routine Active Alex Ordaz MD Inactive Orders Date Order Priority Status Authorizing Provider 01/01/25 1137 Debridement Other (comment) (Lymphedema ) Left;Upper;Medial Leg Routine Completed HUSSEIN Dubois 12/19/24 0926 Debridement Other (comment) (Lymphedema ) Left;Upper;Medial Leg Routine Completed HUSSEIN Dubois Wound Pressure Injury 12/25/24 Buttocks Right (Active) Date First Assessed/Time First Assessed: 12/25/24 1039 Primary Wound Type: Pressure Injury Wound Approximate Age at First Assessment (Weeks): 6 weeks Hand Hygiene Completed: Yes Location: Buttocks Wound Location Orientation: Right Assessments 12/25/2024 10:39 AM 01/08/2025 9:39 AM Wound Image Wound Bed Tissue Assessment Granulation;Sloughing Granulation Howard-Wound Assessment Dry;Scarred Scarred Wound Length (cm) 1.1 cm 1 cm Wound Width (cm) 5.8 cm 5.5 cm Wound Surface Area (cm^2) 6.38 cm^2 5.5 cm^2 Wound Depth (cm) 0.5 cm 0.4 cm Wound Volume (cm^3) 3.19 cm^3 2.2 cm^3 Wound Healing % -- 31 Drainage Description Unable to assess Unable to assess Treatments Cleansed;Other (Comment) Cleansed;Other (Comment) Dressing Open to air Open to air Wound Bed Granulation (%) 60 % 100 % Wound Bed Slough (%) 40 % 0 % Wound Bed Eschar (%) 0 % 0 % Tunneling 0 cm 0 cm Undermining 0 cm 0 cm Edges Attached edges;Well-defined edges Well-defined edges;Attached edges Pressure Injury Stage Stage 3 Stage 3 Active Orders Date Order Priority Status Authorizing Provider 01/08/25 1101 Wound Care Procedure Routine Active Alex Ordaz MD Inactive Orders Date Order Priority Status Authorizing Provider 01/01/25 1138 Wound Care Procedure Pressure Injury Right Buttocks Routine Completed HUSSEIN Dubois Wound Pressure Injury 12/25/24 Buttocks Left (Active) Date First Assessed/Time First Assessed: 12/25/24 1042 Primary Wound Type: Pressure Injury Wound Approximate Age at First Assessment (Weeks): 6 weeks Hand Hygiene Completed: Yes Location: Buttocks Wound Location Orientation: Left Assessments 12/25/2024 10:42 AM 01/08/2025 9:38 AM Wound Image Wound Bed Tissue Assessment Granulation;Sloughing Granulation Howard-Wound Assessment Dry;Intact Scarred;Intact Wound Length (cm) 0.5 cm 0.2 cm Wound Width (cm) 2.5 cm 1.5 cm Wound Surface Area (cm^2) 1.25 cm^2 0.3 cm^2 Wound Depth (cm) 0.2 cm 0.2 cm Wound Volume (cm^3) 0.25 cm^3 0.06 cm^3 Wound Healing % -- 76 Drainage Description Unable to assess Unable to assess Treatments Cleansed;Other (Comment) Cleansed;Other (Comment) Dressing Open to air Open to air Wound Bed Granulation (%) 60 % 100 % Wound Bed Slough (%) 40 % 0 % Wound Bed Eschar (%) 0 % 0 % Tunneling 0 cm 0 cm Undermining 0 cm 0 cm Edges Well-defined edges;Attached edges Well-defined edges;Attached edges Pressure Injury Stage Stage 3 Stage 3 Active Orders Date Order Priority Status Authorizing Provider 01/08/25 1101 Wound Care Procedure Routine Active Alex Ordaz MD Inactive Orders Date Order Priority Status Authorizing Provider 01/01/25 1139 Wound Care Procedure Pressure Injury Left Buttocks Routine Completed HUSSEIN Dubois Pertinent Labs: Albumin Date Value Ref Range Status 12/24/2024 2.4 (L) 3.2 - 5.0 g/dL Final WBC Date Value Ref Range Status 01/05/2025 6.3 4.8 - 10.8 K/mcL Final WBC, Urine Date Value Ref Range Status 12/24/2024 20.6 (H) 0 - 4 /HPF Final Hemoglobin A1C Date Value Ref Range Status 07/08/2021 6.2 <=6.5 % Final Procedure Note: Wound Care Procedure Other (comment) (Lymphedema ) Left;Anterior;Lower Leg Date/Time: 01/08/2025 10:11 AM Performed by: Ramila Hernandez RN Authorized by: Alex Ordaz MD Associated wounds: Wound Other (comment) Leg Left;Anterior;Lower Consent: Consent obtained: Verbal Consent given by: Patient Risks, benefits, and alternatives were discussed: yes Risks discussed: Infection and pain Alternatives discussed: Delayed treatment [place] protocol: Procedure explained and questions answered to [...] Ordaz MD Authorized by: Alex Ordaz MD Associated wounds: Wound Other (comment) Leg Left;Anterior;Lower Consent: Consent obtained: Verbal Consent given by: Patient Risks discussed: Yes Time out: Immediately prior to the procedure a time out was called Debridement Details: Performed by: Physician Type: surgical Level: subcutaneous tissue Pain control: Lidocaine 4% Pain control administration: topical anesthesia Severity of Tissue Pre Debridement: Fat layer exposed Severity of Tissue Post Debridement: Fat layer exposed Time taken: 01/08/2025 9:48 AM Length (cm): 13 Width (cm): 26.8 Depth (cm): 0.1 Area (cm^2): 348.4 Time taken: 01/08/2025 9:49 AM Length (cm): 13 Width (cm): 26.8 Depth (cm): 0.1 Percent Debrided (%): 50 Surface Area (cm^2): 348.4 Area Debrided (cm^2): 174.2 Volume (cm^3): 34.84 Tissue and other material debrided: dermis, epidermis and subcutaneous tissue Devitalized tissue debrided: slough Instrument: Curette Amount of bleeding: small Hemostasis obtained with: Pressure Procedural pain: 0 Post-procedural pain: 0 Response to treatment: Procedure was tolerated well Debridement Other (comment) (Lymphedema ) Left;Upper;Medial Leg Performed by: Alex Ordaz MD Authorized by: Alex Ordaz MD Associated wounds: Wound Other (comment) Leg Left;Upper;Medial Consent: Consent obtained: Verbal Consent given by: Patient Risks discussed: Yes Time out: Immediately prior to the procedure a time out was called Debridement Details: Performed by: Physician Type: surgical Level: subcutaneous tissue Pain control: Lidocaine 4% Pain control administration: topical anesthesia Severity of Tissue Pre Debridement: Fat layer exposed Severity of Tissue Post Debridement: Fat layer exposed Time taken: 01/08/2025 9:51 AM Length (cm): 11.5 Width (cm): 6.5 Depth (cm): 0.1 Area (cm^2): 74.75 Time taken: 01/08/2025 9:52 AM Length (cm): 11.5 Width (cm): 6.5 Depth (cm): 0.1 Percent Debrided (%): 50 Surface Area (cm^2): 74.75 Area Debrided (cm^2): 37.38 Volume (cm^3): 7.48 Tissue and other material debrided: dermis, epidermis and subcutaneous tissue Devitalized tissue debrided: slough Instrument: Curette Amount of bleeding: small Hemostasis obtained with: Pressure Procedural pain: 0 Post-procedural pain: 0 Response to treatment: Procedure was tolerated well Wound Care Procedure Date/Time: 01/08/2025 11:01 AM Performed by: Alex Ordaz MD Authorized by: Alex Ordaz MD Associated wounds: Wound Pressure Injury 12/25/24 Buttocks Right Wound Pressure Injury 12/25/24 Buttocks Left Consent: Consent obtained: Verbal Consent given by: Patient Risks, benefits, and alternatives were discussed: yes Risks discussed: Pain and bleeding Alternatives discussed: Delayed treatment and no treatment [place] protocol: Procedure explained and questions answered to patient or proxy's satisfaction: yes Patient identity confirmed: Verbally with patient Anesthesia: Anesthesia method: Topical application Topical anesthetic: Lidocaine gel Post-procedure details: Procedure completion: Tolerated Comments: Hypergranulation tissue within the wound bed was cauterized using silver nitrate cautery. PROVIDER ORDERS Patient Instructions PROVIDER ORDERS Go to ER if you are presenting with fever, chills, increased redness, pain, swelling, warmth aroundwound area and/or foul smelling odor. If you have any questions or concerns, please contact the [facility] at . It was noted today during your visit that your blood pressure is elevated. Close follow-up with PCPis recommended for possible evaluation of starting and or changing blood pressure medication. VisitVitals BP (!) 134/96 Pulse 87 Temp 36.8 ??C (98.2 ??F) (Temporal) Resp 17 SpO2 94% Smoking Status Never Follow up(s)/ Referrals: Lymphedema Clinic: please call to follow up on your referral Vascular: [facility] 01/14/25 8 am [facility]- we will send a referral in and they will reach out to you Fpc: Home care: [facility] Additional Orders: Increase protein in your [...] remove / unwrap compression and notify [facility] at . ) Coban 2 wrap to left lower extremity, Elevate legs above heart level as much as possible, Avoid standing for extended periods of time. Wear your own compression on your right leg Offloading: Gel wheelchair cushion prescription being sent to [facility] please call them to follow up on the gel cushion Negative Pressure Wound Therapy: (If wound vac [...] Coban 2 wrap to left lower extremity add a wrap of unna boot to the top of thecalf to prevent the Coban 2 from sliding down Dressing Change Frequency: Three times each week [...] Dressing Change Frequency: Three times each week 01/08/2025 11:02 AM YANDELT Alex Ordaz MD * Ramila Hernadnez RN - 01/08/2025 9:30 AM EDT Discharge Patient directed to check out at bowling or [employer] front desk clerk and collect visit summary with wound care [...] Description 01/22/2025 9:30 AM EDT Clinical Support [facility] [address] [place] [phone] 03/10/2025 11:30 AM EDT Office Visit [facility] H[facility]ology Oncology [address] [place] [address] Reese Christensen MD [address] [place] [phone] 06/02/2025 8:15 AM EDT Office Visit Pulmonolgy - [place] [address] [facility] [address] [place] [phone] Ronald Schilling MD [address] [facility] [address] [place] [address] documented as of this encounter Goals Goal [...] week 12 Care Plan Impaired Tissue No Caimlla Perales RN Quit using tobacco (cigarettes, smokeless, [...] Associated Diagnosis Comments WOUND CARE PROCEDURE Routine 01/08/2025 11:01 AM EDT Pressure injury of right buttock, stage 3 (CMS/HCC V24, CMS/HCC V28) Pressure injury of left buttock, stage 3 (CMS/HCC V24, CMS/HCC V28) WOUND CARE PROCEDURE Routine 01/08/2025 10:11 AM EDT Non-pressure chronic ulcer of left lower leg with fat layer exposed (CMS/HCC V24, CMS/HCC V28) Lymphedema DEBRIDEMENT Routine 01/08/2025 9:30 AM EDT Non-pressure chronic ulcer of left thigh with fat layer exposed (CMS/HCC V24, CMS/HCC V28) Non-pressure chronic ulcer of left lower leg with fat layer exposed (CMS/HCC V24, CMS/HCC V28) Lymphedema Venous insufficiency of left lower extremity DEBRIDEMENT Routine 01/08/2025 9:30 AM EDT Non-pressure chronic ulcer of left thigh with fat layer exposed (CMS/HCC V24, CMS/HCC V28) Non-pressure chronic ulcer of left lower leg with fat layer exposed (CMS/HCC V24, CMS/HCC V28) Lymphedema Venous insufficiency of left lower extremity documented in this encounter Results * Wound Care Procedure (01/08/2025 11:01 AM EDT) Narrative Alex Ordaz MD - 01/08/2025 11:01 AM EDT Alex Ordaz MD ? 01/08/2025 11:03 AM Wound Care Procedure Date/Time: 01/08/2025 11:01 AM Performed by: Alex Ordaz MD Authorized by: Alex Ordaz MD ??Associated wounds: Wound Pressure Injury 12/25/24 Buttocks Right Wound Pressure Injury 12/25/24 Buttocks Left Consent: ??Consent obtained: ??Verbal ??Consent given by: ??Patient ??Risks, benefits, and alternatives were discussed: yes ?Risks discussed: ??Pain and bleeding ??Alternatives discussed: ??Delayed treatment and no treatment [place] protocol: ??Procedure explained and questions answered to patient or proxy's satisfaction: yes ?Patient identity confirmed: ??Verbally with patient Anesthesia: ??Anesthesia method: ??Topical application ??Topical anesthetic: ??Lidocaine gel Post-procedure details: ??Procedure completion: ??Tolerated Comments: ?? Hypergranulation tissue within the wound bed was cauterized using silver nitrate cautery. us Alex Ordaz MD IN CLINIC/BEDSIDE ORDERAB LES Final Result * Wound Care Procedure Other (comment) (Lymphedema ) Left;Anterior;Lower Leg (01/08/2025 10:11 AM EDT) Narrative Alex Ordaz MD - 01/08/2025 10:11 AM EDT Alex Ordaz MD ? 01/08/2025 11:03 AM Wound Care Procedure Other (comment) (Lymphedema ) Left;Anterior;Lower Leg Date/Time: 01/08/2025 10:11 AM Performed by: Ramila Hernandez RN Authorized by: Alex Ordaz MD ??Associated wounds: Wound Other (comment) Leg Left;Anterior;Lower Consent: ??Consent obtained: ??Verbal ??Consent given by: ??Patient ??Risks, benefits, and alternatives were discussed: yes ?Risks discussed: ??Infection and pain ??Alternatives discussed: ??Delayed treatment [place] protocol: ??Procedure explained and questions answered to [...] Debridement Other (comment) (Lymphedema ) Left;Upper;Medial Leg (01/08/2025 9:30 AM EDT) Narrative Alex Ordaz MD - 01/08/2025 9:30 AM EDT Alex Ordaz MD ? 01/08/2025 11:03 AM Debridement Other (comment) (Lymphedema ) Left;Upper;Medial Leg Performed by: Alex Ordaz MD Authorized by: Alex Ordaz MD ??Associated wounds: Wound Other (comment) Leg Left;Upper;Medial [...] Post Debridement: ??Fat layer exposed ??Time taken: ??01/08/2025 9:51 AM ??Length (cm): ??11.5 ??Width (cm): ??6.5 ??Depth (cm): ??0.1 ??Area (cm^2): ??74.75 ??Time taken: ??01/08/2025 9:52 AM ??Length (cm): ??11.5 ??Width (cm): ??6.5 ??Depth (cm): ??0.1 ??Percent Debrided (%): ??50 ??Surface Area (cm^2): ??74.75 ??Area Debrided (cm^2): ??37.38 ??Volume (cm^3): ??7.48 ??Tissue and other material debrided: dermis, epidermis and subcutaneous tissue ?Devitalized tissue debrided: slough ?Instrument: ??Curette ??Amount of bleeding: small ?Hemostasis obtained with: ??Pressure ??Procedural pain: ??0 ??Post-procedural pain: ??0 ??Response to treatment: ??Procedure was tolerated well us Alex Ordaz MD IN CLINIC/BEDSIDE ORDERAB LES Final Result * Debridement Other (comment) (Lymphedema ) Left;Anterior;Lower Leg (01/08/2025 9:30 AM EDT) Narrative Alex Ordaz MD - 01/08/2025 9:30 AM EDT Alex Ordaz MD ? 01/08/2025 11:03 AM Debridement Other (comment) (Lymphedema ) Left;Anterior;Lower [...] Post Debridement: ??Fat layer exposed ??Time taken: ??01/08/2025 9:48 AM ??Length (cm): ??13 ??Width (cm): ??26.8 ??Depth (cm): ??0.1 ??Area (cm^2): ??348.4 ??Time taken: ??01/08/2025 9:49 AM ??Length (cm): ??13 ??Width (cm): ??26.8 ??Depth (cm): ??0.1 ??Percent Debrided (%): ??50 ??Surface Area (cm^2): ??348.4 ??Area Debrided (cm^2): ??174.2 ??Volume (cm^3): ??34.84 ??Tissue and other material debrided: dermis, epidermis and subcutaneous tissue ?Devitalized tissue debrided: slough ?Instrument: ??Curette ??Amount of bleeding: small ?Hemostasis obtained with: ??Pressure ??Procedural pain: ??0 ??Post-procedural pain: ??0 ??Response to treatment: ??Procedure was tolerated well us Alex Ordaz MD IN CLINIC/BEDSIDE ORDERAB LES Final Result documented in this encounter Visit Diagnoses Diagnosis Pressure injury of right buttock, stage 3 (CMS/HCC V24, CMS/HCC V28)- Primary Pressure injury of left buttock, stage 3 (CMS/HCC V24, CMS/HCC V28) Non-pressure chronic ulcer of left thigh with fat layer exposed (CMS/HCC V24, CMS/HCC V28) Non-pressure chronic ulcer of left lower leg with fat layer exposed (CMS/HCC V24, CMS/HCC V28) Lymphedema Other noninfectious lymphedema Venous insufficiency of left lower extremity documented in this encounter Historical Medications * This list may reflect changes made after this encounter. cyanocobalamin (VITAMIN B-12) 1,000 mcg tablet Take 1 tablet (1,000 mcg total) by mouth 1 (one) time each day. furosemide (LASIX) 40 mg tablet Take 1 tablet (40 mg total) by mouth 1 (one) time each day. added in this encounter Additional Health Concerns Active Problems Noted Date Diagnosed Date Impaired Tissue 12/19/2024 Education needed on impact of smoking on wound 0 12/19/2024 Education needed related to ulceration/compromised skin integrity. 12/19/2024 documented as of this encounter Care Teams Pneumatic Press Hand Relationship Specialty Start Date End Date Carlos Jerez MD [address] [place] [address] PCP - General Internal Medicine 09/12/18 documented as of this encounter
--- OUTSIDE RECORDS SUMMARY | 2025-01-08 14:44 | XMS_ITS | Encounter Summary ---
Author Organization [facility] Address [address] [place] [address] Care Team Providers Care Manager Progressive Care Name Role Phone Carlos Jerez MD Primary Care Provider [phone] Reason for Visit * Reason Comments Wound Care Encounter Details Date Type Department Care Team (Latest Contact Info) Description 01/01/2025 10:30 AM EDT Office Visit [facility] [address] [place] [phone] Ever Torrez PA [address] [place] [address] Venous insufficiency of left lower extremity (Primary [...] any questions or concerns, please contact the [facility] at . It was noted today [...] to follow up on your referral Vascular: [facility] 01/14/25 8 am Intermediate: Home care: [facility] Additional Orders: Increase protein in your diet [...] please remove / unwrap compression and notify [facility] at . ) Coban 2 wrap to left lower extremity, Elevate legs above heart level as much as possible, Avoid standing for extended periods of time. Wear your own compression on your right leg Offloading: Gel wheelchair cushion prescription being sent to [facility] Negative Pressure Wound Therapy: (If wound [...] [facility] at [address] [address] Office Visit Visit Date: 01/01/2025 Patient Name: [...] nursing note reviewed. Exam conducted with a poultry process worker present. Constitutional: Appearance: Normal appearance. HENT: Head: [...] AM Wound Image Wound Bed Tissue Assessment Yarnell;Sloughing Granulation;Sloughing Howard-Wound Assessment Intact Scarred Wound Length [...] AM Wound Image Wound Bed Tissue Assessment Yarnell;Sloughing Granulation;Sloughing Howard-Wound Assessment Intact Scarred Wound Length [...] Infection and pain Alternatives discussed: Delayed treatment Anna protocol: Procedure explained and questions answered to [...] Risks discussed: Bleeding Alternatives discussed: No treatment Anna protocol: Procedure explained and questions answered to [...] Risks discussed: Bleeding Alternatives discussed: No treatment Anna protocol: Procedure explained and questions answered to [...] any questions or concerns, please contact the [facility] at . It was noted today [...] to follow up on your referral Vascular: [facility] 01/14/25 8 am Intermediate: Home care: [facility] Additional Orders: Increase protein in your diet [...] please remove / unwrap compression and notify [facility] at . ) Coban 2 wrap to left lower extremity, Elevate legs above heart level as much as possible, Avoid standing for extended periods of time. Wear your own compression on your right leg Offloading: Gel wheelchair cushion prescription being sent to [facility] Negative Pressure Wound Therapy: (If wound [...] directed to check out at front end assistant and collect visit summary with wound care [...] Normal Saline Periwound: Apply Zinc Oxide to howrad wound Primary dressing: Hydrofiber with silver (Aquacel [...] [facility] [address] [place] [address] 03/10/2025 11:30 AM EDT Office Visit [facility] Hematology Oncology [address] [place] [address] Reese Christensen MD [address] [place] [address] 06/02/2025 8:15 AM EDT Office Visit Pulmonolgy [place] [address] [phone] Ronald Schilling MD [address] [address] documented as of this encounter Goals Goal Patient Goal Type Associated Problems Recent Progress Patient-Stated? Author Decrease Wound Volume by X% by date (in notes) Care Plan Impaired Tissue On track( 025 10:12 AM EDT) Camilla Sullivan RN Patient and Caregiver Understand Wound Care Education Care Plan Impaired Tissue On track( 025 10:12 AM EDT) No Camilla Perales RN Wound volume breakdown reduced by X% by week 4 Care Plan Impaired Tissue No Camilal Perales RN Wound volume breakdown reduced by X% by week 8 Care Plan Impaired Tissue No Camilla Perales, software clerk volume breakdown reduced by X% by week [...] ?Risks discussed: ??Bleeding ??Alternatives discussed: ??No treatment Anna protocol: ??Procedure explained and questions answered to [...] ?Risks discussed: ??Bleeding ??Alternatives discussed: ??No treatment Anna protocol: ??Procedure explained and questions answered to [...] ??Infection and pain ??Alternatives discussed: ??Delayed treatment Anna protocol: ??Procedure explained and questions answered to [...] documented as of this encounter Care Teams Manager Progressive Care Relationship Specialty Start Date End Date Carlos Jerez MD [address] [place] [address] PCP - General Internal Medicine 09/12/18 documented as of this encounter
--- OUTSIDE RECORDS SUMMARY | 2025-01-08 14:44 | XMS_ITS | Encounter Summary ---
Author Organization [facility] Address [address] [place] [address] Care Team Providers Care Supervisor Mechanic Boilermaking Name Role Phone Carlos Jerez MD Primary Care Provider [phone] Reason for Visit * Reason Comments Consult * Consultation (Routine) - Authorized Specialty Diagnoses / Procedures Referred By Contac t Referred To Contact Hematology and Oncology Diagnoses Normocytic anemia Carlos Jerez MD [address] [address] Phone: tel: fax: Reese Christensen MD [address] [place] [address] Phone: tel: fax: Referral ID Status Reason Start Date Expiration Date Visits Requested Visits Authorized [id number] Authorized Specialty Services Required 11/25/2024 11/25/2025 6 6 Encounter Details Date Type Department Care Team (Late st Contact Info) Description 01/05/2025 11:30 AM EDT Office Visit [facility] Hematology Oncology [address] [place] [phone] Reese Christensen MD [address] [place] [address] Normocytic anemia (Primary Dx); Cellulitis of left leg; Hypoalbuminemia; Sickle cell trait ([facility] V24) Social History Tobacco Use Types Packs/Day [...] patient's recent history he was admitted to [facility] from 11/16-11/21/2024, with an episode of [...] exercise. 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 Morbid obesity with BMI of 60.0-69.9, adult ([facility] V24, [facility] V28) 09/02/2020 Resolved Ambulatory Problems Diagnosis Date Noted No Resolved Ambulatory Problems Past Medical History: Diagnosis Date Asthma History of diverticulitis Lymphedema PAST SURGICAL HISTORY: Past Surgical History: Procedure Laterality Date COLONOSCOPY OTHER SURGICAL HISTORY PROCEDURE: DE LAPS GASTRIC RESTRICTIVE PROCEDURE PLACE DEVICE SOCIAL [...] Protein electrophoresis, serum Please do this test [id number] , do not change thank you Standing Status: Future Standing Expiration Date: 01/05/2026 Vitamin B12 and folate Standing Status: Future Standing Expiration Date: 01/05/2026 Hemoglobin electrophoresis Standing Status: Future Standing Expiration Date: 01/05/2026 ASSESSMENT 1. Normocytic anemia 2. Cellulitis of left leg 3. Hypoalbuminemia 4. Sickle cell trait ([facility] V24) PLAN: 49-year-old gentleman, previously employed as a social media marketer, currently recovering from an episodeof severe cellulitis [...] Description 01/22/2025 9:30 AM EDT Clinical Support [facility] [address] [place] [address] 03/10/2025 11:30 AM EDT Office Visit [facility] Hematology Oncology [address] [place] [address] Reese Christensen MD [address] [place] [address] 06/02/2025 8:15 AM EDT [facility] [address] [address] Ronald Schilling MD [address] [address] Pending Results Name Type Priority Associated Diagnoses [...] On track( 025 10:12 AM EDT) Camilla Sullivan, RN Patient and Caregiver Understand Wound Care Education Care Plan Impaired Tissue On track( 025 10:12 AM EDT) Camilla Sullivan, customs patrol officer volume breakdown reduced by X% by week [...] B12 and folate (01/05/2025 12:22 PM EDT) [facility] Vitamin B-12 517 250 - 900 pcg/mL LAB CHEMISTRY METHOD 01/05/2025 2:39 PM EDT [facility] Folate 3.8 2.8 - 17.0 ng/ml LAB CHEMISTRY METHOD 01/05/2025 2:39 PM EDT [facility] Blood Venous blood specimen / Unknown Venipuncture / Unknown 01/05/2025 12:22 PM EDT 01/05/2025 1:01 PM EDT Subramdiana Christensen MD LAB BLOOD ORDERABLE S Final Result [facility] [address] [place] [address], * (ABNORMAL) Haptoglobin (01/05/2025 12:22 PM EDT) [facility] Haptoglobin 317(H) 16 - 200 mg/dL LAB CHEMISTRY METHOD 01/05/2025 2:15 PM EDT [facility] Blood Venous blood specimen / Unknown Venipuncture / Unknown 01/05/2025 12:22 PM EDT 01/05/2025 1:01 PM EDT us Reese Christensen MD LAB BLOOD ORDERABLE S Final Result Performing Organization Address [facility] Co de Phone Number [facility] [address] [place] [address], [place] [phone] * Lactate dehydrogenase (01/05/2025 12:22 PM EDT) [facility] LDH 209 120 - 246 unit/L LAB CHEMISTRY METHOD 01/05/2025 2:15 PM EDT [facility] Blood Venous blood specimen / Unknown Venipuncture / Unknown 01/05/2025 12:22 PM EDT 01/05/2025 1:01 PM EDT us Reese Christensen MD LAB BLOOD ORDERABLE S Final Result Performing Organization Address [facility] Co de Phone Number [facility] [address] [place] [address], [place] [phone] * Ferritin (01/05/2025 12:22 PM EDT) [facility] Ferritin 145 26 - 388 ng/mL LAB CHEMISTRY METHOD 01/05/2025 2:39 PM EDT [facility] Blood Venous blood specimen / Unknown Venipuncture / Unknown 01/05/2025 12:22 PM EDT 01/05/2025 1:01 PM EDT us Reese Christensen MD LAB BLOOD ORDERABLE S Final Result Performing Organization Address [facility]/ZIP Co de Phone Number [facility] [address] [place] [address], [place] [phone] * (ABNORMAL) Iron and TIBC (01/05/2025 12:22 PM EDT) [facility] Iron 52 50 - 160 mcg/dL LAB CHEMISTRY METHOD 01/05/2025 2:39 PM EDT [facility] TIBC 303 250 - 450 mcg/dL LAB CHEMISTRY METHOD 01/05/2025 2:39 PM EDT [facility] Iron Saturation 17(L) 20 - 50 % LAB CHEMISTRY METHOD 01/05/2025 2:39 PM EDT [facility] Blood Venous blood specimen / Unknown Venipuncture / Unknown 01/05/2025 12:22 PM EDT 01/05/2025 1:01 PM EDT us Reese Christensen MD LAB BLOOD ORDERABLE S Final Result [facility] [address] [place] [address], documented in this encounter Visit Diagnoses Diagnosis Normocytic anemia- Primary Unspecified anemia Cellulitis of left leg Hypoalbuminemia Other disorders of plasma protein metabolism Sickle cell trait ([facility] V24) Sickle-cell trait documented in this encounter [...] documented as of this encounter Care Teams Supervisor Mechanic Boilermaking Relationship Specialty Start Date End Date Carlos Jerez MD 175 [facility] [address] [place] [address] PCP - General Internal Medicine 09/12/18 documented as of this encounter
--- OUTSIDE RECORDS SUMMARY | 2025-01-08 14:44 | XMS_ITS | Encounter Summary ---
Author Organization [facility] Address [address] [place] [address] Care Team Providers Care Weed Sprayer Name Role Phone Carlos Jerez MD Primary Care Provider [phone] Reason for Visit * Reason Onset Date Comments Dr. Alvarado appointment needed 12/24/2024 Encounter Details Date Type Department Care Team (Late st Contact Info) Description 12/24/2024 Telephone [facility] [address] [place] [address] Khan [...] 11:38 AM EDT Patient made aware that [facility] ultrasound is down for awhile and we will be referring him to Dr. Alvarado's vascular office to perform ultrasounds and follow up if needed. Referral sent awaiting appointment Appt at 8am documented in this encounter Plan of Treatment Upcoming Encounters Date Type Department Care Team (Late st Contact Info) Description 01/22/2025 9:30 AM EDT Clinical Support [facility] [address] [place] [address] 03/10/2025 11:30 AM EDT Office Visit [facility] Hematology Oncology [address] [place] [address] Reese Christensen MD [address] [place] [phone] 06/02/2025 8:15 AM EDT Office Visit Pulmonolgy - [place] [address] [address] Ronald Schilling MD [address] [address] documented as of this encounter Goals Goal Patient Goal Type Associated Problems Recent Progress Patient-Stated? Author Decrease Wound Volume by X% by date (in notes) Care Plan Impaired Tissue On track( 10:12 AM EDT) Camilla Sullivan RN Patient [...] documented as of this encounter Care Teams Weed Sprayer Relationship Specialty Start Date End Date Carlos Jerez MD [address] [place] [address] PCP - General Internal Medicine 09/12/18 documented as of this encounter
--- OUTSIDE RECORDS SUMMARY | 2025-01-08 14:44 | XMS_ITS | Encounter Summary ---
Author Organization [facility] Address [address] [place] [address] Care Team Providers Care Toolroom Keeper Name Role Phone Carlos Jerez MD Primary Care Provider [phone] Reason for Visit * Reason Onset Date Comments Request For Order(s) 01/05/2025 [facility] Order # [id number] Encounter Details Date Type Department Care Team (Late st Contact Info) Description 01/05/2025 Telephone Internal Medicine - [place] [address] [facility] [address] [place] [address] Cathy Coyne MA Request For Order(s) ([facility] Order # [id number]/) Social History Tobacco Use Types Packs/Day Years [...] Notes * Cathy Coyne MA - 01/07/2025 11:30 AM EDT Scanned into chart and faxed to [facility] [phone] * Cathy Coyne MA - 01/05/2025 8:34 AM EDT [facility] Order # [id number] Please sign & documented in this encounter Plan of Treatment Upcoming Encounters Date Type Department Care Team (Late st Contact Info) Description 01/22/2025 9:30 AM EDT Clinical Support [facility] [address] [place] [address] 03/10/2025 11:30 AM EDT Office Visit [facility] Hematology Oncology [address] [place] [address] Reese Christensen MD [address] [place] [address] 06/02/2025 8:15 AM EDT Office Visit Pulmonolgy - [place] [address] [phone] Ronald Schilling MD [address] [address] documented as of this encounter Goals Goal Patient Goal Type Associated Problems Recent Progress Patient-Stated? Author Decrease Wound Volume by X% by date (in notes) Care Plan Impaired Tissue On track( 025 10:12 AM EDT) No Camilla Perales RN Patient and Caregiver Understand Wound Care Education Care Plan Impaired Tissue On track( 025 10:12 AM EDT) No Camilla Perales, plug saw operator volume breakdown reduced by X% by week 4 Care Plan Impaired Tissue No Camilla Perales RN Wound volume breakdown reduced by X% by week 8 Care Plan Impaired Tissue No Camilla Perales, plug saw operator volume breakdown reduced by X% by week [...] documented as of this encounter Care Teams Toolroom Keeper Relationship Specialty Start Date End Date Carlos Jerez MD [address] [place] [address] PCP - General Internal Medicine 09/12/18 documented as of this encounter
--- OUTSIDE RECORDS SUMMARY | 2025-01-08 14:44 | XMS_ITS | Clinical Summary ---
Author Organization 175 [facility] Address [address] [place] [address] Phone Care Team Providers Care Store Person Name Role Phone Carlos Jerez MD Primary Care Provider Allergies Active Allergy Reactions Criticality Noted Date [...] day. 90 each 01/06/20 25 026 Active furosemide (LASIX) 40 mg tablet Take 1 tablet (40 mg total) by mouth 1 (one) time each day. Active cyanocobalamin (VITAMIN B-12) 1,000 mcg tablet Take 1 tablet (1,000 mcg total) by mouth 1 (one) time each day. Active fluticasone propion-salmeter oL (ADVAIR HFA) 115-21 mcg/actuation inhaler Inhale 2 puffs by mouth. 12/14/19 24 025 Discontinued albuterol HFA (PROAIR HFA ; PROVENTIL HFA ; VENTOLIN HFA) 90 mcg/actuation inhaler Inhale 2 puffs by mouth. 08/11/20 23 025 Discontinued fluticasone-salm eterol (Wixela Inhub) 250-50 [...] (two) times a day. 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 Encounters Date Type Department Care Team Description 01/08/2025 9:30 AM EDT Office Visit [facility] [address] [place] [phone] Alex Ordaz MD Pressure injury of right buttock, stage 3 ([facility] V24, [facility] V28) (Primary Dx); Pressure injury of left buttock, stage 3 ([facility] V24, [facility] V28); Non-pressure chronic ulcer of left thigh with fat layer exposed ([facility] V24, [facility] V28); Non-pressure chronic ulcer of left lower leg with fat layer exposed ([facility] V24, [facility] V28); Lymphedema; Venous insufficiency of left lower extremity 01/05/2025 11:30 AM EDT Office Visit [facility] Hematology Oncology [address] [place] [address] Reese Christensen MD Normocytic anemia (Primary Dx); Cellulitis of left leg; Hypoalbuminemia; Sickle cell trait ([facility] V24) 01/05/2025 Telephone Internal Medicine - [place] 175 [facility] [address] [place] [address] Cathy Coyne MA Request For Order(s) ([facility] Order # [id number]/) 01/05/2025 [facility] [address] [phone] Cathy Coyne MA Request For Order(s) ([facility] Order # [id number]/) 01/05/2025 [facility] [address] [phone] Cathy Coyne [place] Request For Order(s) ([facility] Order # [id number]/) 01/01/2025 10:30 AM EDT Office Visit [facility] [address] [place] [phone] Ever Torrez PA Venous insufficiency of left lower extremity (Primary Dx); Non-pressure chronic ulcer of left lower leg with fat layer exposed (CMS/HCC V24, CMS/HCC V28); Non-pressure chronic ulcer of left thigh with fat layer exposed (CMS/HCC V24, CMS/HCC V28); Pressure injury of left buttock, stage 3 (CMS/HCC V24, CMS/HCC V28); Pressure injury of right buttock, stage 3 (CMS/HCC V24, CMS/HCC V28) 01/01/2025 Telephone Internal Medicine [address] [phone] Cathy Coyne MA Request For Order(s) ([facility] Cert 11/22/24-01/20/25 Plan Of Care /) 12/31/2024 Telephone Internal Medicine [address] [phone] Cathy Coyne MA Request For Order(s) ([facility] Order # [id number]/) 12/31/2024 [facility] [address] [phone] Cathy Coyne [place] Request For Order(s) ([facility] Order # [id number]/) 12/31/2024 [facility] [address] [phone] Cathy Coyne MA Request For Order(s) ([facility] Order # [id number]/) 12/31/2024 Telephone Internal Medicine [address] [phone] Cathy Coyne MA Request For Order(s) ([facility] Order # [id number]/) 12/31/2024 Telephone Internal Medicine [address] [phone] Cathy Coyne [place] Request For Order(s) ([facility] Order # [id number]/) 12/30/2024 Telephone [facility] [address] [place] [phone] Fanny Rizvi LPN 12/30/2024 Telephone Internal [address] [phone] Cathy Coyne MA Request For Order(s) ([facility] Order # [id number]/) 12/26/2024 Telephone Pulmonolgy [address] [phone] Ronald Schilling MD Medication Problem 12/26/2024 Telephone Internal [address] [phone] Stephania Moscoso MA Referral 12/25/2024 10:30 AM EDT Office Visit [facility] [address] [place] [phone] Alex Ordaz MD Lymphedema (Primary Dx); Non-pressure [...] 10:45 AM EDT Office Visit Internal Medicine [address] [phone] Carlos Jerez MD Dysuria (Primary Dx); Oliguria 12/24/2024 Telephone [facility] [address] [place] [phone] Fanny Rizvi LPN Dr. Khan appointment needed 12/24/2024 Telephone Internal Medicine [address] [phone] Melissa Glass MA urine 12/19/2024 8:00 AM EDT Consult [facility] [address] [place] [phone] Ever Torrez PA Lymphedema (Primary Dx); Cellulitis and abscess of left leg; Non-pressure chronic ulcer of left lower leg with fat layer exposed (CMS/HCC V24, CMS/HCC V28); Non-pressure chronic ulcer of left thigh with fat layer exposed (CMS/HCC V24, CMS/HCC V28); Venous insufficiency of left lower extremity 12/17/2024 Telephone Internal Medicine [address] [phone] Marva Carolina MA faxed form (Disability ) 12/12/2024 Telephone Internal [address] [phone] Carlos Jerez MD Form: FMLA 12/08/2024 Telephone Internal Medicine [address] [phone] Marva Carolina MA faxed order ([facility]) 12/05/2024 9:30 AM EDT Office Visit Internal Medicine [address] [phone] Carlos Jerez MD Cellulitis and abscess of left leg (Primary Dx); Lymphedema; Primary hypertension 12/04/2024 Telephone Internal Medicine [address] [phone] Carlos Jerez MD VNA 12/03/2024 Telephone Internal Medicine [address] [phone] Carlos Jerez MD 12/02/2024 Telephone Internal Medicine [address] [phone] Carlos Jerez MD Low grade fever 11/28/2024 3:30 PM EST Office Visit Pulmonolgy [address] [phone] Ronald Schilling MD Mild persistent asthma, unspecified whether complicated (Primary Dx); Morbid obesity with BMI of 60.0-69.9, adult ([facility] V24, [facility] V28) 11/25/2024 9:00 AM EST Office Visit Internal [address] [phone] Carlos Jerez MD Cellulitis and abscess of left leg (Primary Dx); Hospital discharge follow-up; Morbid obesity with BMI of 60.0-69.9, adult ([facility] V24, [facility] V28) 11/21/2024 [facility] [address] [phone] Carlos Jerez MD VNA from Last 3 Months Immunizations Name Administration Dates Next Due Influenza trivalent, 0.5mL, preservative free (Fluarix; FluLaval; Fluzone) ages 6mo and older (Afluria) 3 years and older 08/03/2010 PPD Test 01/26/2014 Tdap Tetanus diptheria acell ular pertussis (Boostrix; Adacel) 7yo and older 06/09/2013 Surgical History Surgery Date Site/Laterality Comments OTHER SURGICAL HISTORY PROCEDURE: [place] LAPS GASTRIC RESTRICTIVE PROCEDURE PLACE DEVICE COLONOSCOPY [...] Description 01/22/2025 9:30 AM EDT Clinical Support [facility] [address] [place] [address] 03/10/2025 11:30 AM EDT Office Visit [facility] Hematology Oncology [address] [place] [address] Reese Christensen MD [address] [place] [phone] 06/02/2025 8:15 AM EDT [facility] [address] [phone] Ronald Schilling MD [address] [address] Health Maintenance Due Date Last Done Comments [...] Td or Tdap) 06/09/2023 06/09/2013 COVID-19 Vaccine (4 - 2023-2 5 season) 2024 08/11/2021, 02/03/2021, 01/06/2021 Influenza [...] needed on impact of smoking on wound Camilla Sullivan RN Patient and Caregiver Understand Wound Care Education Care Plan Education needed related to ulceration/compr omised skin integrity. No Camilla Perales RN Procedures Procedure Name Priority Date/Time Associated Diagnosis [...] Lymphedema Venous insufficiency of left lower extremity PROTEIN, TOTAL Routine 01/05/2025 12:22 PM EDT [...] Recently Relevant to Health Maintenance Results * Wound Care Procedure (01/08/2025 11:01 [...] ??Alternatives discussed: ??Delayed treatment and no treatment Chapman protocol: ??Procedure explained and questions answered to [...] ??Infection and pain ??Alternatives discussed: ??Delayed treatment Chapman protocol: ??Procedure explained and questions answered to [...] ) Left;Anterior;Lower Leg (01/08/2025 9:30 AM EDT) Alex Richardson MD - 01/08/2025 9:30 AM EDT Alex [...] IN CLINIC/BEDSIDE ORDERAB LES Final Result * Vitamin B12 and folate (01/05/2025 12:22 PM EDT) Vitamin B-12 517 250 - 900 pcg/mL LAB CHEMISTRY METHOD 01/05/2025 2:39 PM EDT [facility] Folate 3.8 2.8 - 17.0 ng/ml LAB CHEMISTRY METHOD 01/05/2025 2:39 PM EDT [facility] Blood Venous blood specimen / Unknown Venipuncture / Unknown 01/05/2025 12:22 PM EDT 01/05/2025 1:01 PM EDT Reese Christensen MD LAB BLOOD ORDERABLE S Final Result [facility] [address] [place] [address], * (ABNORMAL) CBC auto differential (01/05/2025 12:22 PM EDT) Only the most recent of3 resultswithin the time period is included. WBC 6.3 4.8 - 10.8 K/mcL LAB HEMETOLOGY METHOD 01/05/2025 1:40 PM EDT [facility] RBC 4.60 4.50 - 5.50 M/mcL LAB HEMETOLOGY METHOD 01/05/2025 1:40 PM EDT [facility] Hemoglobin 12.3(L) 13.5 - 17.5 g/dL LAB HEMETOLOGY METHOD 01/05/2025 1:40 PM EDT [facility] Hematocrit 38.3(L) 42.0 - 54.0 % LAB HEMETOLOGY METHOD 01/05/2025 1:40 PM EDT [facility] MCV 82.9 79.0 - 98.0 FL LAB HEMETOLOGY METHOD 01/05/2025 1:40 PM EDT [facility] MCH 26.6(L) 27.0 - 32.0 pcg LAB HEMETOLOGY METHOD 01/05/2025 1:40 PM EDT [facility] MCHC 32.1 32.0 - 37.0 g/dL LAB HEMETOLOGY METHOD 01/05/2025 1:40 PM [facility] RDW 16.0(H) 11.0 - 15.0 % LAB HEMETOLOGY METHOD 01/05/2025 1:40 PM EDT [facility] Platelets 400 130 - 400 K/mcL LAB HEMETOLOGY METHOD 01/05/2025 1:40 PM [facility] MPV 9.7 7.0 - 11.0 FL LAB HEMETOLOGY METHOD [facility]/05[facility]25 [facility] NRBC 0.0 <1.0 % LAB HEMETOLOGY METHOD 01/05/2025 1:[facility] NRBC Absolute 0.00 <0.10 K/mcL LAB HEMETOLOGY METHOD 01/05/2025 1:40 PM [facility] Neutrophils Relative 55.5 % LAB HEMETOLOGY METHOD 01/05/2025 1:40 PM [facility] Lymphocytes Relative 20.6 % LAB HEMETOLOGY METHOD 01/05/2025 1:40 PM [facility] Monocytes Relative 7.6 % LAB HEMETOLOGY METHOD 01/05/2025 1:40 PM [facility] Eosinophils Relative 14.7 % LAB HEMETOLOGY METHOD 01/05/2025 1:[facility] Basophils Relative 1.3 % LAB HEMETOLOGY METHOD 01/05/2025 1:40 PM [facility] Immature Granulocytes Relative 0.3 % LAB HEMETOLOGY METHOD 01/05/2025 1:[facility] Neutrophils Absolute 3.50 1.50 - 7.00 K/mcL LAB HEMETOLOGY METHOD 01/05/2025 1:40 PM EDT [facility] Lymphocytes Absolute 1.30 1.00 - 5.00 K/mcL LAB HEMETOLOGY METHOD 01/05/2025 1:40 PM EDT [facility] Monocytes Absolute 0.48 0.20 - 1.00 K/[facility] LAB HEMETOLOGY METHOD 01/05/2025 1:40 PM EDT [facility] Eosinophils Absolute 0.93(H) 0.00 - 0.50 K/mcL LAB HEMETOLOGY METHOD 01/05/2025 1:40 PM EDT [facility] Basophils Absolute 0.08 0.00 - 0.20 K/mcL LAB HEMETOLOGY METHOD 01/05/2025 1:40 PM EDT [facility] Immature Granulocytes Absolute 0.02 0.00 - 0.03 K/[facility] LAB HEMETOLOGY METHOD 01/05/2025 1:40 PM EDT [facility] Blood Venous blood specimen / Unknown Venipuncture / Unknown 01/05/2025 12:22 PM EDT 01/05/2025 1:00 PM EDT us Subramony Fermin ALVARADO LAB BLOOD ORDERABLE S Final Result [facility] [address] [place] [address], * (ABNORMAL) Iron and TIBC (01/05/2025 12:22 PM EDT) Iron 52 50 - 160 mcg/dL LAB CHEMISTRY METHOD 01/05/2025 2:39 PM EDT [facility] TIBC 303 250 - 450 mcg/dL LAB CHEMISTRY METHOD 01/05/2025 2:39 PM EDT [facility] Iron Saturation 17(L) 20 - 50 % LAB CHEMISTRY METHOD 01/05/2025 2:39 PM EDT [facility] Blood Venous blood specimen / Unknown Venipuncture / Unknown 01/05/2025 12:22 PM EDT 01/05/2025 1:01 PM EDT us Reese Christensen MD LAB BLOOD ORDERABLE S Final Result Performing Organization Address [facility] de Phone Number [facility] [address] [place] [address], [place] [phone] * Protein, total (01/05/2025 12:22 PM EDT) [facility] Total Protein 7.2 6.0 - 8.0 g/dL LAB CHEMISTRY METHOD 01/05/2025 2:20 PM EDT [facility] Blood Venous blood specimen / Unknown Venipuncture / Unknown 01/05/2025 12:22 PM EDT 01/05/2025 1:01 PM EDT us Reese Christensen MD LAB BLOOD ORDERABLE S Final Result Performing Organization Address [facility] Phone Number [facility] [address] [place] [address], [place] [phone] * Lactate dehydrogenase (01/05/2025 12:22 PM EDT) [facility] LDH 209 120 - 246 unit/L LAB CHEMISTRY METHOD 01/05/2025 2:15 PM EDT [facility] Blood Venous blood specimen / Unknown Venipuncture / Unknown 01/05/2025 12:22 PM EDT 01/05/2025 1:01 PM EDT us Reese Christensen MD LAB BLOOD ORDERABLE S Final Result Performing Organization Address [facility] Co de Phone Number [facility] [address] [place] [address], [place] [phone] * (ABNORMAL) Haptoglobin (01/05/2025 12:22 PM EDT) [facility] Haptoglobin 317(H) 16 - 200 mg/dL LAB CHEMISTRY METHOD 01/05/2025 2:15 PM EDT [facility] Blood Venous blood specimen / Unknown Venipuncture / Unknown 01/05/2025 12:22 PM EDT 01/05/2025 1:01 PM EDT us Reese Christensen MD LAB BLOOD ORDERABLE S Final Result Performing Organization Address [facility] Co de Phone Number [facility] [address] [place] [address], [place] [phone] * Ferritin (01/05/2025 12:22 PM EDT) [facility] Ferritin 145 26 - 388 ng/mL LAB CHEMISTRY METHOD 01/05/2025 2:39 PM EDT [facility] Blood Venous blood specimen / Unknown Venipuncture / Unknown 01/05/2025 12:22 PM EDT 01/05/2025 1:01 PM EDT us Reese Christensen MD LAB BLOOD ORDERABLE S Final Result Performing Organization Address City/[facility]/ZIP Co de Phone Number [facility] [address] [place] [address], [place] [phone] * Wound Care Procedure Pressure Injury Left [...] ?Risks discussed: ??Bleeding ??Alternatives discussed: ??No treatment Chapman protocol: ??Procedure explained and questions answered to [...] ?Risks discussed: ??Bleeding ??Alternatives discussed: ??No treatment Chapman protocol: ??Procedure explained and questions answered to [...] ??Infection and pain ??Alternatives discussed: ??Delayed treatment Chapman protocol: ??Procedure explained and questions answered to [...] ) Left;Anterior;Lower Leg (12/25/2024 11:13 AM EDT) Alex Richardson MD - 12/25/2024 11:13 AM EDT Alex [...] ??Infection and pain ??Alternatives discussed: ??Delayed treatment Chapman protocol: ??Procedure explained and questions answered to [...] mmol/L LAB CHEMISTRY METHOD 12/24/2024 8:03 PM [facility] Potassium 4.2 3.5 - 5.5 mmol/L LAB CHEMISTRY METHOD 12/24/2024 8:03 PM [facility] Chloride 104 96 - 110 mmol/L LAB CHEMISTRY METHOD 12/24/2024 8:03 PM [facility] CO2 30 21 - 32 mmol/L LAB CHEMISTRY METHOD 12/24/2024 8:03 PM [facility] Anion Gap 6 3 - 11 LAB CHEMISTRY METHOD 12/24/2024 8:03 PM [facility] Glucose 87 70 - 100 mg/dL LAB CHEMISTRY METHOD 12/24/2024 8:03 PM [facility] BUN 7 5 - 25 mg/dL LAB CHEMISTRY METHOD 12/24/2024 8:03 PM [facility] Creatinine 0.88 0.70 - 1.30 mg/dL LAB CHEMISTRY METHOD 12/24/2024 8:03 PM [facility] eGFR 106 >=60 mL/min/1. 73m2 LAB CHEMISTRY METHOD 12/24/2024 8:03 PM [facility] Comment:Calculation based on the??Chronic Kidney Disease Epidemiology Collaboration (CKD-EPI) equation refit??without adjustment for race. BUN/Creatinine Ratio 8.0 LAB CHEMISTRY METHOD 12/24/2024 8:03 PM [facility] Calcium 8.7 8.5 - 10.5 mg/dL LAB CHEMISTRY METHOD 12/24/2024 8:03 PM [facility] AST (SGOT) 14 10 - 42 unit/L LAB CHEMISTRY METHOD 12/24/2024 8:03 PM [facility] ALT (SGPT) 11 10 - 60 unit/L LAB CHEMISTRY METHOD 12/24/2024 8:03 PM [facility] Alkaline Phosphatase 62 42 - 121 unit/L LAB CHEMISTRY METHOD 12/24/2024 8:03 PM [facility] Total Protein 6.9 6.0 - 8.0 g/dL LAB CHEMISTRY METHOD 12/24/2024 8:03 PM [facility] Albumin 2.4(L) 3.2 - 5.0 g/dL LAB CHEMISTRY METHOD 12/24/2024 8:03 PM [facility] Total Bilirubin 0.7 0.0 - 1.4 mg/dL LAB CHEMISTRY METHOD 12/24/2024 8:03 PM [facility] Blood Venous blood specimen / Unknown Venipuncture / Unknown 12/24/2024 12:47 PM EDT 12/24/2024 1:03 PM EDT us Carlos Jerez MD LAB BLOOD ORDERABLES Final Resul t [facility] [address] [place] [address], [place] [phone] * (ABNORMAL) Urinalysis with reflex microscopic and culture (12/24/2024 12:25 PM EDT) Pathologist [facility] Specific [place] Urine 1.018 1.003 - 1.030 LAB URINALYSIS - AUTOMATED METHOD 12/24/2024 1:49 PM EDT [facility] pH, Urine 6.0 5.0 - 8.0 pH LAB URINALYSIS - AUTOMATED METHOD 12/24/2024 1:49 PM [facility] Leukocytes, Urine Small(A) Negative LAB URINALYSIS - AUTOMATED METHOD 12/24/2024 1:49 PM EDT [facility] Nitrite, Urine Negative Negative LAB URINALYSIS - AUTOMATED METHOD 12/24/2024 1:[facility] Protein, Urine 300(A) <=Trace mg/dL LAB URINALYSIS - AUTOMATED METHOD 12/24/2024 1:49 PM [facility] Glucose, Urine Negative Negative mg/dL LAB URINALYSIS - AUTOMATED METHOD 12/24/2024 1:49 PM [facility] Ketones, Urine Negative Negative mg/dL LAB URINALYSIS - AUTOMATED METHOD 12/24/2024 1:49 PM [facility] Urobilinogen , Urine 4.0(A) 0.2 - 1.0 mg/dL LAB URINALYSIS - AUTOMATED METHOD 12/24/2024 1:49 PM [facility] Bilirubin, Urine Small(A) Negative LAB URINALYSIS - AUTOMATED METHOD 12/24/2024 1:49 [facility] Blood, Urine Large(A) Negative LAB URINALYSIS - AUTOMATED METHOD 12/24/2024 1:49 PM EDT [facility] RBC, Urine 1,569.1(H) 0 - 4 /HPF LAB URINALYSIS - AUTOMATED METHOD 12/24/2024 1:49 PM EDT [facility] WBC, Urine 20.6(H) 0 - 4 /HPF LAB URINALYSIS - AUTOMATED METHOD 12/24/2024 1:49 PM EDT [facility] Squamous Epithelial, Urine 10 0 - 60 /LPF LAB URINALYSIS - AUTOMATED METHOD 12/24/2024 1:49 PM EDT [facility] Non-Squamous Epithelial, Urine 2-5 Transitional epithelial cells. /LPF 12/24/2024 1:49 PM EDT [facility] Bacteria, Urine Negative Negative /HPF LAB URINALYSIS - AUTOMATED METHOD 12/24/2024 1:49 PM EDT [facility] Hyaline Casts, Urine 3.0 0 - 3 /LPF LAB URINALYSIS - AUTOMATED METHOD 12/24/2024 1:49 PM EDT [facility] Urine Urine specimen obtained by clean catch procedure / Unknown Non-blood Collection / Unknown 12/24/2024 12:25 PM EDT 12/24/2024 1:09 PM EDT us Carlos Jerez MD LAB URINE ORDERABLES Final Resul t [facility] [address] [place] [address], * Vick urine culture tube (12/24/2024 12:25 PM EDT) Extra Tube Hold for add-ons. 12/24/2024 3:01 PM EDT [facility] Comment:Auto resulted. Urine Urine specimen obtained by clean catch procedure / Unknown Non-blood Collection / Unknown 12/24/2024 12:25 PM EDT 12/24/2024 1:09 PM EDT us Carlos Jerez MD LAB URINE ORDERABLES Final Resul t Performing Organization Address [facility]/ZIP Co de Phone Number [facility] [address] [place] [address], [place] [phone] * Culture urine (12/24/2024 12:25 PM EDT) Pathologist [facility] Culture, Urine No growth 12/25/2024 7:56 AM EDT [facility] Urine Urine specimen obtained by clean catch procedure / Unknown 12/24/2024 12:25 PM EDT 12/24/2024 1:10 PM EDT us Mare Cardona MD LAB MICROBIOLOGY - GENERAL ORD ERABLES Final Result Performing Organization Address [facility]/ZIP Co de Phone Number [facility] [address] [place] [address], [place] [phone] * (ABNORMAL) POC Urine Auto W/O Micro (12/24/2024 12:15 PM EDT) Glucose UA POC Trace Negative, Trace mg/dL Bilirubin UA POC 1+(A) Negative, Small Ketones UA POC Trace Negative, Trace Specific [place] UA POC 1.025 Blood UA POC 3+(A) Negative, Large PH UA POC 6.0 Protein UA POC 3+(A) Negative, >=300 mg/dL Urobilinogen UA POC >=8.0 E.U./dL mg/dL Nitrite UA POC Negative Negative Leukocytes UA POC Negative Negative Urine Urine specimen obtained by clean catch procedure / Unknown 12/24/2024 12:15 PM EDT us Carlos Jerez MD POINT OF CARE TEST [...] ??Infection and pain ??Alternatives discussed: ??Delayed treatment Chapman protocol: ??Procedure explained and questions answered to [...] ) Left;Anterior;Lower Leg (12/19/2024 8:00 AM EDT) Alex Richardson MD - 12/19/2024 8:00 AM EDT [facility]IN [...] mg/dL Blood Venous blood specimen / Unknown us Historical Provider LAB BLOOD ORDERABLES Ely l Result from Last 3 Months or Most Recently Relevant to Health Maintenance Additional Health Concerns Active Problems Noted Date Diagnosed Date Impaired Tissue 12/19/2024 Education needed on impact of smoking on wound 0 12/19/2024 Education needed related to ulceration/compromised skin integrity. 12/19/2024 Insurance [facility] Care Teams Store Person Relationship Specialty Start Date End Date Carlos Jerez MD [address] [facility] [address] [place] [address] PCP - General Internal Medicine 09/12/18
--- OUTSIDE RECORDS SUMMARY | 2025-01-08 14:44 | XMS_ITS | Encounter Summary ---
Author Organization [facility] Address [address] [place] [address] Care Team Providers Care Coding Quality Coordinator Name Role Phone Carlos Jerez MD Primary Care Provider [phone] Reason for Visit * Reason Onset Date Comments Request For Order(s) 01/05/2025 [facility] Order # [id number] Encounter Details Date Type Department Care Team (Late st Contact Info) Description 01/05/2025 Telephone Internal Medicine - [place] [address] [place] [address] Cathy Coyne MA Request For Order(s) ([facility] Order # [id number]/) Social History Tobacco Use Types Packs/Day Years [...] Notes * Cathy Coyne MA - 01/07/2025 11:51 AM EDT Scanned into chart and faxed to [facility] [phone] * Cathy Coyne MA - 01/05/2025 1:57 PM EDT [facility] Order # [id number] Please sign & documented in this encounter Plan of Treatment Upcoming Encounters Date Type Department Care Team (Late st Contact Info) Description 01/22/2025 9:30 AM EDT Clinical Support [facility] [address] [place] [address] 03/10/2025 11:30 AM EDT Office Visit [facility] H[facility]ology [facility]cology [address] [place] [address] Reese Christensen MD [address] [place] [address] 06/02/2025 8:15 AM EDT Office Visit Pulmonolgy - [place] [address] [phone] Ronald Schilling MD [address] [address] documented as of this encounter Goals Goal Patient Goal Type Associated Problems Recent Progress Patient-Stated? Author Decrease Wound Volume by X% by date (in notes) Care Plan Impaired Tissue On track( 025 10:12 AM EDT) No Camilla Perales RN Patient and Caregiver Understand Wound Care Education Care Plan Impaired Tissue On track( 025 10:12 AM EDT) No Camilla Perales, implement mechanic volume breakdown reduced by X% by week 4 Care Plan Impaired Tissue No Camilla Perales RN Wound volume breakdown reduced by X% by week 8 Care Plan Impaired Tissue No Camilla Perales, implement mechanic volume breakdown reduced by X% by week [...] documented as of this encounter Care Teams Coding Quality Coordinator Relationship Specialty Start Date End Date Carlos Jerez MD [address] [place] [id number] PCP - General Internal Medicine 09/12/18 documented as of this encounter
== END 2025-01-08 11:48 | disposition home or self-care (01) ==
LOC: HO.LNP 11:47
PROVIDERS: Visit Provider Internal Medicine Nephrology
DX: R80.9 Proteinuria, unspecified (principal)
CPT/HCPCS: 84156

== ENCOUNTER 2025-01-20 14:24 | Outpatient (AMB) | payer BC, SELFPAY ==
--- NOTE | 2025-01-20 14:29 | HO.NEPHOV ---
Vital Signs 01/20/25 14:30 Height 5 ft 10 in Weight 455 lb BMI 65.3 BP 124/88 Blood Pressure Location Rt brachial Pulse 109 H Pulse Source Pulse Oximeter Pulse Oximetry (%) 95 Oxygen Delivery Method Room Air Intake Visit Reasons: 2wk [id number] not getting calls Computed Tomography Technologist Required: No Accompanied by: Other Relationship Allergies codeine Allergy (Verified 01/20/25 14:29) Itching guaifenesin Allergy (Verified 01/20/25 14:29) Itching HPI Comments Details: I had the delight of seeing Mr. Yoon who is 49 years of age with a BMI of 68, in follow up for proteinuria. He is not a diabetic and does not have any hypertension. He had a leg wound which is healing. He recently had been noticing cloudy urine with edema and weight gain. He denies epistaxis, recurrent sore throat, photosensitivity, new skin rashes, joint swellings, hearing deficits, coronary artery disease, congestive heart failure, CVA. He takes nonsteroidal anti-inflammatories as needed basis. He does not have any new bone or back pain. Recently he presented to PCP with dark and cloudy urine, he was thought to have microscopic hematuria and was diagnosed with proteinuria. His serum albumin was 2.3 at that time. [facility] Medical History (Updated 01/20/25 @ 14:34 by Gerard Morris MD) [place] disease Adult lactase deficiency Bilateral carpal tunnel syndrome Depression with anxiety Allergic rhinitis Decreased testosterone level Proteinuria Eczema Vitamin D deficiency Complication of stomach banding GERD (gastroesophageal reflux disease) Seasonal allergic rhinitis due to pollen Seasonal allergic conjunctivitis Multifocal pneumonia Chronic cough Gynecomastia Morbid obesity with BMI of 60.0-69.9, adult Vitamin B12 deficiency Essential (primary) hypertension Hyperlipidemia Surgical History History of endoscopy Hx of laparoscopic gastric banding Family History Maternal Aunt Diabetes Social History Alcohol intake: former Patient Tobacco Use Status: Never used Tobacco Review of Systems Const All systems reviewed & are unremarkable except as noted in HPI and below Physical Exam Const General: comfortable and no acute distress Orientation/consciousness: patient oriented x3 HEENT Head: Yes normocephalic Mouth: Normal oral and palatal mucosa present Eyes EOM: EOMs intact bilaterally Neck Neck: Yes supple Resp Auscultation: clear to auscultation bilaterally Cardio Jugular venous distension: no JVD Rate: regular rate GI Palpation (GI): Soft to palpation Auscultation: normal bowel sounds General: Yes no CVA tenderness Back/Spine/Pelvis Back: no CVA tenderness Skin General skin exam: no rashes or lesions noted Neuro General: patient oriented x3 and moves all extremities Results Reviewed Nephrology Results: Sodium 140 mmol/L (135-145) 01/06/25 Potassium 3.7 mmol/L (3.3-5.1) 01/06/25 Chloride 105 mmol/L (96-108) 01/06/25 Carbon Dioxide 27 mmol/L (22-29) 01/06/25 BUN 9 mg/dL (9-16) 01/06/25 Creatinine 0.76 mg/dL (0.5-1.4) 01/06/25 Calcium 9.0 mg/dL (8.4-10.2) 01/06/25 Urine Creatinine 128.24 mg/dL 01/06/25 Protein/Creatinin Ratio 0.11 (<0.2) 01/06/25 Assessment & Plan Assessment & Plan (1) Edema: Code(s): R60.9 - Edema, unspecified Category: Medical Qualifiers: Edema type: localized Qualified Code(s): R60.0 - Localized edema (2) Hypoalbuminemia: Code(s): E88.09 - Other disorders of plasma-protein metabolism, not elsewhere classified Category: Medical Plan Mr. Yoon had microscopic hematuria and proteinuria which has resolved. His serum creatinine is normal. He was hypoalbuminemic. His serum albumin is better. Differential diagnosis were postinfectious GN, IgA nephropathy, FSGS. He was hypervolemic which improved on Lasix 40 mg daily . His blood work, urine studies including 24 hour urine for protein were reviewed. He does not need a renal biopsy. His blood pressure is at goal. I encouraged him to minimize or avoid nonsteroidal anti-inflammatories and cut back sodium in the diet. He should lose more weight. Labs ordered for F/U. He needs repeat sleep study and ECHO. Further management is pending evolving data. Answered all questions. Orders: Orders Creatinine 6 Months E88.09 - Other disorders of plasma-protein metabolism, not elsewhere classified, R60.0 - Localized edema Alanine Aminotransferase 6 Months E88.09 - Other disorders of plasma-protein metabolism, not elsewhere classified, R60.0 - Localized edema Blood Urea Nitrogen 3 Months E88.09 - Other disorders of plasma-protein metabolism, not elsewhere classified, R60.0 - Localized edema Blood Urea Nitrogen 6 Months E88.09 - Other disorders of plasma-protein metabolism, not elsewhere classified, R60.0 - Localized edema Electrolytes 6 Months E88.09 - Other disorders of plasma-protein metabolism, not elsewhere classified, R60.0 - Localized edema Albumin Level 6 Months E88.09 - Other disorders of plasma-protein metabolism, not elsewhere classified, R60.0 - Localized edema Aspartate Amino Transferase 6 Months E88.09 - Other disorders of plasma-protein metabolism, not elsewhere classified, R60.0 - Localized edema Electrolytes 3 Months E88.09 - Other disorders of plasma-protein metabolism, not elsewhere classified, R60.0 - Localized edema Creatinine 3 Months E88.09 - Other disorders of plasma-protein metabolism, not elsewhere classified, R60.0 - Localized edema Albumin Level 3 Months E88.09 - Other disorders of plasma-protein metabolism, not elsewhere classified, R60.0 - Localized edema Medications: Refilled furosemide (Lasix) 40 mg PO DAILY 90 tabs 3RF Coding Level of Care Code Est Pt Level 4 (70833) Diagnoses Localized edema R60.0 Edema type: localized Hypoalbuminemia E88.09
[2025-01-20 14:30] VITALS: BP 124/88; PULSE 109; O2SAT 95; BMI 65.3
--- OUTSIDE RECORDS SUMMARY | 2025-01-20 16:37 | XMS_ITS ---
Care Plan Created on: January 20, 2025 Cassie Yoon : 1975 Sex: Male Author Organization [address] [facility] Address [address] [place] [address] Phone Care Team Providers Care Entry Engineer Name Role Phone Carlos Jerez MD Primary Care Provider [phone] Active Problems Problem Noted Date Diagnosed Date Hyperlipidemia 07/09/2021 Primary hypertension 07/09/2021 Vitamin B12 deficiency 07/09/2021 Morbid obesity with BMI of 6 0.0-69.9, adult ([facility] V24, [facility] V28) 09/02/2020 Gynecomastia 08/23/2020 Chronic [...]
--- OUTSIDE RECORDS SUMMARY | 2025-01-20 16:37 | XMS_ITS | Clinical Summary ---
Author Organization 175 [facility] Address [address] [place] [address] Phone Care Team Providers Care Fur Tanner Name Role Phone Carlos Jerez MD Primary Care Provider [phone] Allergies Active Allergy Reactions Criticality Noted Date [...] UP TO 30 DAYS. 8.5 each 2 12/30/19 25 Active ferrous sulfate 325 mg (65 [...] candidiasis. Do not swallow. 1 each 11/29/19 025 Discontinued fluticasone propion-salmeter oL (ADVAIR HFA) 115-21 mcg/actuation inhaler Inhale 2 puffs by mouth 2 (two) times a day. 1 each 12/30/19 25 025 Discontinued Active Problems Problem Noted Date Diagnosed Date Hyperlipidemia 07/09/2021 Primary hypertension 07/09/2021 Vitamin B12 deficiency 07/09/2021 Morbid obesity with BMI of 6 0.0-69.9, adult ([facility] V24, [facility] V28) 09/02/2020 Gynecomastia 08/23/2020 Chronic cough 01/26/2020 Multifocal pneumonia 01/26/2020 Seasonal allergic conjunctivitis 01/26/2020 Seasonal allergic rhinitis due to pollen 020 GERD (gastroesophageal reflux disease) 8 Complication of stomach banding 05/01/2018 Vitamin D deficiency 05/01/2018 Eczema 02/27/2017 Proteinuria 02/27/2017 Decreased testosterone level 11/30/2016 Allergic rhinitis 04/17/2016 Depression with anxiety 04/17/2016 Bilateral carpal tunnel syndrome 04/13/2015 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 Encounters Date Type Department Care Team Description 01/13/2025 Telephone Internal Medicine - [place] [address] [phone] Cathy Coyne MA Request For Order(s) ([facility] Order # [id number]/) 01/12/2025 Telephone Internal Medicine - [address] [phone] Carlos Jerez MD Leg Swelling 01/08/2025 9:30 AM EDT Office Visit [facility] [address] [place] [phone] Alex Ordaz MD Pressure injury of right buttock, stage 3 ([facility] V24, [facility] V28) (Primary Dx); Pressure injury of left buttock, stage 3 ([facility] V24, [facility] V28); Non-pressure chronic ulcer of left thigh with fat layer exposed ([facility] V24, [facility] V28); Non-pressure chronic ulcer of left lower leg with fat layer exposed ([facility] V24, [facility] V28); Lymphedema; Venous insufficiency of left lower extremity 01/05/2025 12:25 PM EDT Lab Draw Station - [address] [phone] Normocytic anemia 01/05/2025 11:30 AM EDT Office Visit [facility] Hematology Oncology [address] [place] [phone] Reese Christensen MD Normocytic anemia (Primary Dx); Cellulitis of left leg; Hypoalbuminemia; Sickle cell trait ([facility] V24) 01/05/2025 Telephone Internal Medicine [facility] [address] [phone] Cathy Coyne [place] Request For Order(s) ([facility] Order # [id number]/) 01/05/2025 [facility] [address] [phone] Cathy Coyne [place] Request For Order(s) ([facility] Order # [id number]/) 01/05/2025 [facility] [address] [phone] Cathy Coyne [place] Request For Order(s) ([facility] Order # [id number]/) 01/01/2025 10:30 AM EDT Office Visit [facility] [address] [place] [phone] Ever oTrrez PA Venous insufficiency of left lower extremity [...] V24, CMS/HCC V28) 01/01/2025 Telephone Internal Medicine [address] [phone] Cathy Coyne [place] Request For Order(s) ([facility] Cert 11/22/24-01/20/25 Plan Of Care /) 12/31/2024 Telephone Internal Medicine [address] [phone] Cathy Coyne [place] Request For Order(s) ([facility] Order # [id number]/) 12/31/2024 Telephone Internal Medicine [address] [phone] Cathy Coyne [place] Request For Order(s) ([facility] Order # [id number]/) 12/31/2024 Telephone Internal Medicine [address] [phone] Cathy Coyne [place] Request For Order(s) ([facility] Order # [id number]/) 12/31/2024 Telephone Internal [address] [phone] Cathy Coyne [place] Request For Order(s) ([facility] Order # [id number]/) 12/31/2024 Telephone Internal [address] [phone] Cathy Coyne [place] Request For Order(s) ([facility] Order # [id number]/) 12/30/2024 Telephone [facility] [address] [place] [phone] Fanny Rizvi LPN 12/30/2024 Telephone Internal [address] [phone] Cathy Coyne [place] Request For Order(s) ([facility] Order # [id number]/) 12/26/2024 Telephone Pulmonolgy [address] [phone] Ronald Schilling MD Medication Problem 12/26/2024 Telephone Internal [address] [phone] Stephania Moscoso MA Referral 12/25/2024 10:30 AM EDT Office Visit [facility] [address] [place] [phone] Alex Ordaz MD Lymphedema (Primary Dx); Non-pressure [...] 10:45 AM EDT Office Visit Internal Medicine [address] [phone] Carlos Jerez MD Dysuria (Primary Dx); Oliguria 12/24/2024 Telephone [facility] [address] [place] [phone] Khan appointment needed 12/24/2024 Telephone Internal [address] [phone] Melissa Glass MA urine 12/19/2024 8:00 AM EDT Consult [facility] [address] [place] [phone] Ever Torrez PA Lymphedema (Primary Dx); Cellulitis and abscess of left leg; Non-pressure chronic ulcer of left lower leg with fat layer exposed (CMS/HCC V24, CMS/HCC V28); Non-pressure chronic ulcer of left thigh with fat layer exposed (CMS/HCC V24, CMS/HCC V28); Venous insufficiency of left lower extremity 12/17/2024 Telephone Internal Medicine [address] [phone] Marva Carolina MA faxed form (Disability ) 12/12/2024 Telephone Internal Medicine [address] [phone] Carlos Jerez MD Form: FMLA 12/08/2024 Telephone Internal Medicine [address] [phone] Marva Carolina [place] faxed order ([employer]) 12/05/2024 9:30 AM EDT Office Visit Internal Medicine [address] [phone] Carlos Jerez MD Cellulitis and abscess of left leg (Primary Dx); Lymphedema; Primary hypertension 12/04/2024 Telephone Internal Medicine [address] [phone] Carlos Jerez MD VNA 12/03/2024 Telephone Internal Medicine [address] [phone] Carlos Jerez MD 12/02/2024 Telephone Internal Medicine [address] [phone] Carlos Jerez MD Low grade fever 11/28/2024 3:30 PM EST Office Visit Pulmonolgy [address] [phone] Ronald Schilling MD Mild persistent asthma, unspecified whether complicated (Primary Dx); Morbid obesity with BMI of 60.0-69.9, adult ([facility] V24, [facility] V28) 11/25/2024 9:00 AM EST Office Visit Internal Medicine [address] [phone] Carlos Jerez MD Cellulitis and abscess of left leg (Primary Dx); Hospital discharge follow-up; Morbid obesity with BMI of 60.0-69.9, adult ([facility] V24, [facility] V28) 11/21/2024 Telephone Internal Medicine [address] [phone] Carlos Jerez MD VNA from Last 3 Months Immunizations Name Administration Dates Next Due Influenza trivalent, 0.5mL, preservative free (Fluarix; FluLaval; Fluzone) ages 6mo and older (Afluria) 3 years and older 08/03/2010 PPD Test 01/26/2014 Tdap Tetanus diptheria acell ular pertussis (Boostrix; Adacel) 7yo and older 06/09/2013 Surgical History Surgery Date Site/Laterality Comments OTHER SURGICAL HISTORY PROCEDURE: [place] LAPS GASTRIC RESTRICTIVE PROCEDURE PLACE DEVICE COLONOSCOPY [...] Description 01/22/2025 9:30 AM EDT Clinical Support [facility] [address] [place] [phone] 03/10/2025 11:30 AM EDT Office Visit [facility] Hematology Oncology [address] [place] [phone] Reese Christensen MD [address] [place] [phone] 06/02/2025 8:15 AM EDT Office Visit Pulmonolgy - [place] 175 [facility] [address] [place] [phone] Ronald Schilling MD 175 [facility] [address] [place] [address] Health Maintenance Due Date Last Done Comments [...] Lymphedema Venous insufficiency of left lower extremity EXTERNAL CLINICAL LAB 01/06/2025 EXTERNAL CLINICAL LAB 01/06/2025 EXTERNAL CLINICAL LAB 01/06/2025 EXTERNAL CLINICAL LAB 01/06/2025 EXTERNAL CLINICAL LAB 01/06/2025 EXTERNAL CLINICAL LAB 01/06/2025 EXTERNAL CLINICAL LAB 01/06/2025 [place] PROTEIN ELECTROPHORETIC FRACTIONATION & QUANTITATION SERUM Routine 01/05/2025 12:22 PM EDT Normocytic anemia PROTEIN, TOTAL Routine 01/05/2025 12:22 PM EDT Normocytic anemia CBC WITH AUTO DIFFERENTIAL Routine 01/05/2025 12:22 PM EDT Normocytic anemia HEMOGLOBIN ELECTROPHORESIS Routine 01/05/2025 12:22 PM EDT Normocytic anemia VITAMIN B12 AND FOLATE Routine 12:22 PM EDT Normocytic anemia PROTEIN ELECTROPHORESIS, SERUM Routine 01/05/2025 12:22 PM EDT Normocytic anemia [...] Dysuria Oliguria VICK URINE CULTURE TUBE Routine 12/25/19 12:25 PM EDT Dysuria Oliguria URINALYSIS WITH [...] ??Alternatives discussed: ??Delayed treatment and no treatment Littcarr protocol: ??Procedure explained and questions answered to [...] ??Infection and pain ??Alternatives discussed: ??Delayed treatment Littcarr protocol: ??Procedure explained and questions answered to [...] ??Response to treatment: ??Procedure was tolerated well Alex Ordaz MD IN CLINIC/BEDSIDE ORDERAB LES Final Result * External clinical lab (01/06/2025) Only the most recent of7 resultswithin the time period is included. Provider [facility] LAB BLOOD ORDERABLES Fin al Result * PATHOLOGIST REVIEW PROTEIN ELECTROPHORESIS (01/05/2025 12:22 PM EDT) [facility] Pathologist Interpretation Reviewed by Erica Cruz MD 01/12/2025 8:[address] [facility] Blood Venous blood specimen / Unknown Venipuncture / Unknown 01/05/2025 12:22 PM EDT 01/05/2025 1:01 PM EDT Reese Christensen MD LAB BLOOD ORDERABLE S Final Result [facility] [address] [place] [address], * Vitamin B12 and folate (01/05/2025 12:22 PM EDT) [facility] Vitamin B-12 517 250 - 900 pcg/mL LAB CHEMISTRY METHOD 01/05/2025 2:[address] [facility] Folate 3.8 2.8 - 17.0 ng/ml LAB CHEMISTRY METHOD 01/05/2025 2:[address] [facility] Blood Venous blood specimen / Unknown Venipuncture / Unknown 01/05/2025 12:22 PM EDT 01/05/2025 1:01 PM EDT Virginieramdiana Christensen MD LAB BLOOD ORDERABLE S Final Result [facility] [address] [place] [address], [place] [phone] * (ABNORMAL) CBC auto differential (01/05/2025 12:22 PM EDT) Only the most recent of3 resultswithin the time period is included. WBC 6.3 4.8 - 10.8 K/mcL LAB HEMETOLOGY METHOD 01/05/2025 1:[address] [facility] RBC 4.60 4.50 - 5.50 M/mcL LAB HEMETOLOGY METHOD 01/05/2025 1:[address] [facility] Hemoglobin 12.3(L) 13.5 - 17.5 g/dL LAB HEMETOLOGY METHOD 01/05/2025 1:[address] [facility] Hematocrit 38.3(L) 42.0 - 54.0 % LAB HEMETOLOGY METHOD 01/05/2025 1:[address] [facility] MCV 82.9 79.0 - 98.0 FL LAB HEMETOLOGY METHOD 01/05/2025 1:40 PM [facility] MCH 26.6(L) 27.0 - 32.0 pcg LAB HEMETOLOGY METHOD 01/05/2025 1:[address] [facility] MCHC 32.1 32.0 - 37.0 g/dL LAB HEMETOLOGY METHOD 01/05[facility]2025 1[facility] RDW 16.0(H) 11.0 - 15.0 % LAB HEMETOLOGY METHOD 01/05/2025 1:40 [facility] Platelets 400 130 - 400 K/mcL LAB HEMETOLOGY METHOD 01/05/2025 1:40 [facility] MPV 9.7 7.0 - 11.0 FL LAB HEMETOLOGY METHOD 01/05/2025 1:40 [facility] NRBC 0.0 <1.0 % LAB HEMETOLOGY METHOD 01/05/2025 1:40 PM [facility] NRBC Absolute 0.00 <0.10 K/mcL LAB HEMETOLOGY METHOD 01/05/2025 1:40 PM [facility] Neutrophils Relative 55.5 % LAB HEMETOLOGY METHOD 01/05/2025 1:40 PM [facility] Lymphocytes Relative 20.6 % LAB HEMETOLOGY METHOD 01/05/2025 1:40 PM [facility] Monocytes Relative 7.6 % LAB HEMETOLOGY METHOD 01/05/2025 1:40 PM [facility] Eosinophils Relative 14.7 % LAB HEMETOLOGY METHOD 01/05/2025 1:40 PM [facility] Basophils Relative 1.3 % LAB HEMETOLOGY METHOD 01/05/2025 1:40 PM [facility] Immature Granulocytes Relative 0.3 % LAB HEMETOLOGY METHOD 01/05/2025 1:40 PM [facility] Neutrophils Absolute 3.50 1.50 - 7.00 K/mcL LAB HEMETOLOGY METHOD 01/05/2025 1:[address] [facility] Lymphocytes Absolute 1.30 1.00 - 5.00 K/mcL LAB HEMETOLOGY METHOD 01/05/2025 1:[address] [facility] Monocytes Absolute 0.48 0.20 - 1.00 K/[facility] LAB HEMETOLOGY METHOD 01/05/2025 1:[address] [facility] Eosinophils Absolute 0.93(H) 0.00 - 0.50 K/mcL LAB HEMETOLOGY METHOD 01/05/2025 1:[address] [facility] Basophils Absolute 0.08 0.00 - 0.20 K/[facility] LAB HEMETOLOGY METHOD 01/05/2025 1:[address] [facility] Immature Granulocytes Absolute 0.02 0.00 - 0.03 K/[facility] LAB HEMETOLOGY METHOD 01/05/2025 1:[address] [facility] Blood Venous blood specimen / Unknown Venipuncture / Unknown 01/05/2025 12:22 PM EDT 01/05/2025 1:00 PM EDT Reese Christensen MD LAB BLOOD ORDERABLE S Final Result [facility] [address] [place] [address], * (ABNORMAL) Hemoglobin electrophoresis (01/05/2025 12:22 PM EDT) Hemoglobin A1 57.2(L) 96.5 - 97.8 % 01/08/2025 4:23 PM EDT [facility] Hemoglobin A2 3.2 2.2 - 3.2 % 01/08/2025 4:23 PM EDT [facility] Hemoglobin F 0.0 <2.0 % 01/08/2025 4:23 PM EDT [facility] Hemoglobin S 39.6(H) 0.0 % 01/08/2025 4:23 PM EDT [facility] Hemoglobin C 0.0 0.0 % 01/08/2025 4:23 PM EDT [facility] Interpretation See Below 01/08/2025 4:23 PM EDT [facility] Comment: Hemoglobin evaluation confirms sickle cell trait. Test performed at [facility], [address] [place], [place] ??[address] ? [phone] Moriah Seals MD, PhD - Recreation Counselor Blood Venous blood specimen / Unknown Venipuncture / Unknown 01/05/2025 12:22 PM EDT 01/05/2025 1:00 PM EDT Reese Christensen MD LAB BLOOD ORDERABLE S Final Result [facility] [address] [place] [address] * (ABNORMAL) Iron and TIBC (01/05/2025 12:22 PM EDT) Iron 52 50 - 160 mcg/dL LAB CHEMISTRY METHOD 01/05/2025 2:[address] [facility] TIBC 303 250 - 450 mcg/dL LAB CHEMISTRY METHOD 01/05/2025 2:[address] [facility] Iron Saturation 17(L) 20 - 50 % LAB CHEMISTRY METHOD 01/05/2025 2:[address] [facility] Blood Venous blood specimen / Unknown Venipuncture / Unknown 01/05/2025 12:22 PM EDT 01/05/2025 1:01 PM EDT Reese Christensen MD LAB BLOOD ORDERABLE S Final Result [facility] [address] [place] [address], [place] [phone] * (ABNORMAL) Protein electrophoresis, serum (01/05/2025 12:22 PM EDT) Total Protein 7.2 6.0 - 8.0 g/dL LAB CHEMISTRY METHOD 01/12/2025 8:[address] [facility] Albumin, Serum 2.8(L) 2.9 - 4.1 g/dL LAB CHEMISTRY METHOD 01/12/2025 8:26 AM [facility] Alpha 1 Globulin (g/dL) 0.3 0.1 - 0.5 g/dL LAB CHEMISTRY METHOD 01/12/2025 8:[address] [facility] Alpha 2 Globulin (g/dL) 1.1 0.7 - 1.5 g/dL LAB CHEMISTRY METHOD 01/12/2025 8:26 AM [facility] Beta (g/dL) 1.1 0.7 - 1.5 g/dL LAB CHEMISTRY METHOD 01/12/2025 8:26 AM [facility] Gamma Globulin (g/dL) 1.9 0.7 - 1.9 g/dL LAB CHEMISTRY METHOD 01/12/2025 8:26 AM [facility] SPEP Interpretation No M-Adithya seen. Hypoalbuminem ia, suggestive of malnutrition, decreased hepatic synthesis or renal/GI loss LAB CHEMISTRY METHOD 01/12/2025 8:26 AM [facility] Blood Venous blood specimen / Unknown Venipuncture / Unknown 01/05/2025 12:22 PM EDT 01/05/2025 1:01 PM EDT us Reese Christensen MD LAB BLOOD ORDERABLE S Final Result [facility] [address] [place] [address], * Protein, total (01/05/2025 12:22 PM EDT) Total Protein 7.2 6.0 - 8.0 g/dL LAB CHEMISTRY METHOD 01/05/2025 2:[address] [facility] Blood Venous blood specimen / Unknown Venipuncture / Unknown 01/05/2025 12:22 PM EDT 01/05/2025 1:01 PM EDT us Reese Christensen MD LAB BLOOD ORDERABLE S Final Result Performing Organization Address [facility]/ZIP Co de Phone Number [facility] [address] [place] [address], [place] [phone] * Lactate dehydrogenase (01/05/2025 12:22 PM EDT) Pathologist [facility] LDH 209 120 - 246 unit/L LAB CHEMISTRY METHOD 01/05/2025 2:[address] [facility] Blood Venous blood specimen / Unknown Venipuncture / Unknown 01/05/2025 12:22 PM EDT 01/05/2025 1:01 PM EDT us Reese Christensen MD LAB BLOOD ORDERABLE S Final Result Performing Organization Address [facility]/ZIP Co de Phone Number [facility] [address] [place] [address], [place] [phone] * (ABNORMAL) Haptoglobin (01/05/2025 12:22 PM EDT) Haptoglobin 317(H) 16 - 200 mg/dL LAB CHEMISTRY METHOD 01/05/2025 2:[address] [facility] Blood Venous blood specimen / Unknown Venipuncture / Unknown 01/05/2025 12:22 PM EDT 01/05/2025 1:01 PM EDT us Reese Christensen MD LAB BLOOD ORDERABLE S Final Result Performing Organization Address City/[facility]/ZIP Co de Phone Number [facility] [address] [place] [address], [place] [phone] * Ferritin (01/05/2025 12:22 PM EDT) Ferritin 145 26 - 388 ng/mL LAB CHEMISTRY METHOD 01/05/2025 2:[address] [facility] Blood Venous blood specimen / Unknown Venipuncture / Unknown 01/05/2025 12:22 PM EDT 01/05/2025 1:01 PM EDT Reese Christensen MD LAB BLOOD ORDERABLE S Final Result [facility] [address] [place] [address], * Wound Care Procedure Pressure Injury Left [...] ?Risks discussed: ??Bleeding ??Alternatives discussed: ??No treatment Littcarr protocol: ??Procedure explained and questions answered to [...] spray. ??Silver nitrate used for chemical cautery/debridement. Ever SAVAGE IN CLINIC/BEDSIDE ORDERABLE S Final Result * Wound Care Procedure Pressure Injury Right Buttocks (01/01/2025 11:38 AM EDT) Narrative Alex Ordaz MD - 01/01/2025 11:38 AM EDT HUSSEIN Dubois ? 01/01/2025 11:51 AM Wound Care Procedure Pressure Injury Right Buttocks Date/Time: 01/01/2025 11:38 AM Performed by: HUSSEIN Dubois Authorized by: HUSESIN Dubois ??Associated wounds: Wound Pressure Injury 12/25/24 Buttocks Right Consent: ??Consent obtained: ??Verbal ??Consent given by: ??Patient ??Risks, benefits, and alternatives were discussed: yes ?Risks discussed: ??Bleeding ??Alternatives discussed: ??No treatment Littcarr protocol: ??Procedure explained and questions answered to [...] ??Infection and pain ??Alternatives discussed: ??Delayed treatment Littcarr protocol: ??Procedure explained and questions answered to [...] ) Left;Upper;Medial Leg (01/01/2025 10:30 AM EDT) Alex Richardson MD - 01/01/2025 10:30 AM EDT HUSSEIN [...] (comment) (Lymphedema ) Left;Anterior;Lower Leg Performed by: HUSSENI Dubois Authorized by: HUSSEIN Dubois ??Associated wounds: [...] ??Infection and pain ??Alternatives discussed: ??Delayed treatment Littcarr protocol: ??Procedure explained and questions answered to [...] ) Left;Anterior;Lower Leg (12/25/2024 10:30 AM EDT) Narrative Alex Ordaz MD - 12/25/2024 10:30 AM EDT Alex [...] mg/dL LAB CHEMISTRY METHOD 12/24/2024 8:[address] [facility] AST (SGOT) 14 10 - 42 unit/L LAB CHEMISTRY METHOD 12/24/2024 8:[address] [facility] ALT (SGPT) 11 10 - [...] MD LAB BLOOD ORDERABLES Final Resul t [facility] [address] [place] [address], [place] [phone] * (ABNORMAL) Urinalysis with reflex microscopic and culture (12/24/2024 12:25 PM EDT) Specific [place] Urine 1.018 1.003 - 1.030 LAB URINALYSIS - AUTOMATED METHOD 12/24/2024 1:49 PM [facility] pH, Urine 6.0 5.0 - 8.0 pH LAB URINALYSIS - AUTOMATED METHOD 12/24/2024 1:[address] [facility] Leukocytes, Urine Small(A) Negative LAB [...] Transitional epithelial cells. /LPF 12/24/2024 1:49 PM [facility] Bacteria, Urine Negative Negative /HPF LAB URINALYSIS - AUTOMATED METHOD 12/24/2024 1:[address] [facility] Hyaline Casts, Urine 3.0 0 - 3 /LPF LAB URINALYSIS - AUTOMATED METHOD 12/24/2024 1:[address] [facility] Urine Urine specimen obtained by clean catch procedure / Unknown Non-blood Collection / Unknown 12/24/2024 12:25 PM EDT 12/24/2024 1:09 PM EDT us Carlos Jerez MD LAB URINE ORDERABLES Final Resul t Performing Organization Address City/[facility]/ZIP Co de Phone Number [facility] [address] [place] [address], [place] [phone] * Vick urine culture tube (12/24/2024 12:25 PM EDT) Extra Tube Hold for add-ons. 12/24/2024 3:[address] [facility] Comment:Auto resulted. Urine Urine specimen obtained by clean catch procedure / Unknown Non-blood Collection / Unknown 12/24/2024 12:25 PM EDT 12/24/2024 1:09 PM EDT us Carlos Jerez MD LAB URINE ORDERABLES Final Resul t [facility] [address] [place] [address], [place] [phone] * Culture urine (12/24/2024 12:25 PM EDT) Culture, Urine No growth 12/25/2024 7:[address] [facility] Urine Urine specimen obtained by clean catch procedure / Unknown 12/24/2024 12:25 PM EDT 12/24/2024 1:10 PM EDT us Mare Cardona MD LAB MICROBIOLOGY - GENERAL ORD ERABLES Final Result [facility] [address] [place] [address], * (ABNORMAL) POC Urine Auto W/O Micro (12/24/2024 12:15 PM EDT) Glucose UA POC Trace Negative, Trace mg/dL Bilirubin UA POC 1+(A) Negative, Small Ketones UA POC Trace Negative, Trace Specific [place] UA POC 1.025 Blood UA POC 3+(A) [...] ??Infection and pain ??Alternatives discussed: ??Delayed treatment Littcarr protocol: ??Procedure explained and questions answered to [...] related to ulceration/compromised skin integrity. 12/19/2024 Insurance [facility] Care Teams Fur Tanner Relationship Specialty Start Date End Date Carlos Jerez MD [address] [place] [address] PCP - General Internal Medicine 09/12/18
== END 2025-01-20 14:55 | disposition home or self-care (01) ==
LOC: HO.HKAS 14:25
PROVIDERS: PCP Internal Medicine; Visit Provider Internal Medicine Nephrology
DX: R60.0 Localized edema (principal); E88.09 Other disorders of plasma-protein metabolism, not elsewhere classified
CPT/HCPCS: 99214

== ENCOUNTER → 2025-01-20 14:24 | Outpatient (BNVA) | payer BC, SELFPAY | PROVIDERS: PCP Internal Medicine; Visit Provider Internal Medicine Nephrology | DX: Z13.89 Encounter for screening for other disorder (principal) ==